=== PATIENT | male | born 1960 | race Caucasian/White ===

== ENCOUNTER 2016-07-13 10:56 | Inpatient (IN) | payer MEDICAID ==
[~2016-07-13] VITALS: Ht 177.8 cm; Wt 73.5 kg
--- NOTE | ~2016-07-13 | CON ---
PATIENT'S NAME: JENSEN DAWN [facility] AGE: 56 Y [address] ROOM: [address] [place], [place] [address] LOCATION: [facility] ADMIT DATE: 07/13/2016 Consultation DISCHARGE DATE: FAMILY PHYSICIAN: Luisito Hector DO ATTENDING PHYSICIAN: Porter Mota DATE OF CONSULTATION: 08/08/2016 REFERRING PHYSICIAN: IVAN CORTES MD Team members reporting include Dr. Mota; Mary Driver, social worker aide; Tanisha Mcghee RN; Amanda Hermosillo, PT; Rae Renee, OT; Bela Kwon, Speech Therapy; Anh Senior, therapeutic rec; Sister Meeta Coe, Pastoral Care; and Luz Rodriguez, pharmacist. 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 ID doctor will need to see the patient again. He has a small open area on his right hand and his left forearm. His bottom is pink. He is occasionally incontinent of bowel and bladder. Taking [place] for pain. The patient takes Ensure Enlive 3 times a day, eating 75% to 100%. He can complete sit to supine transfers and supine to sit independently. He can propel his wheelchair at mod I. He has met 5/6 long-term PT goals. The patient can dress his upper and lower body at mod I; grooming, independent; bathing, standby; toilet and shower transfers, standby; and feeding, independent. The patient's comprehension is at mod I; language and expression, independent; memory and problem solving, minimal assistance. The patient does have a memory book, often does not use it. He can complete car transfers at standby. Working on coping skills. The patient is open to pastoral care. He is getting nystatin cream twice a day to reddened areas in groins, etc. DISCHARGE PLAN: The patient is receiving 3 hours of PT, OT, and Speech Sunday through Sunday. The patient has daily rehab, nursing, and physiatry involvement as well as therapeutic recreational services 4 days per week. The patient has shown functional improvement and is progressing. Please see his plan of care for specific goals. Plan is for the patient to discharge as soon as we can find placement. MARY DRIVER FOR PORTER MOTA MD PATIENT'S NAME: JENSEN DAWN [facility] AGE: 56 Y [address] ROOM: [place] [address] LOCATION: [facility] ADMIT DATE: 07/13/2016 Consultation DISCHARGE DATE: FAMILY PHYSICIAN: Luisito Hector DO ATTENDING PHYSICIAN: Porter Mota TD/modl /[id number] d: t: 08/11/16 1743, CONSULTATION REPORT
--- NOTE | ~2016-07-13 | CON ---
PATIENT'S NAME: JENSEN DAWN [facility] AGE: 56 Y [address] ROOM: [address] [place], [place] [address] LOCATION: [facility] ADMIT DATE: 07/13/2016 Consultation DISCHARGE DATE: FAMILY PHYSICIAN: Luisito Hector DO ATTENDING PHYSICIAN: Porter Mota DATE OF CONSULTATION: 08/08/2016 REFERRING PHYSICIAN: IVAN CORTES MD Team members reporting include Dr. Mota; Mary Driver, delinquency prevention social worker; Tanisha Mcghee RN; Amanda Hermosillo, PT; Rae Renee, OT; Bela Kwon, Speech Therapy; Anh Senior, therapeutic rec; Sister Meeta Coe, Pastoral Care; and Luz Rodriguez, pharmacist. CURRENT STATUS: Jensen is a 56-year-old man, admitted to our inpatient rehab unit on July 13, 2016, following a right ulrle-tnp-zsnl amputation and amputation of left first and second toes. ID doctor will need to see the patient again. He has a small open area on his right hand and his left forearm. His bottom is pink. He is occasionally incontinent of bowel and bladder. Taking [place] for pain. The patient takes Ensure Enlive 3 times a day, eating 75% to 100%. He can complete sit to supine transfers and supine to sit independently. He can propel his wheelchair at mod I. He has met 5/6 long-term PT goals. The patient can dress his upper and lower body at mod I; grooming, independent; bathing, standby; toilet and shower transfers, standby; and feeding, independent. The patient's comprehension is at mod I; language and expression, independent; memory and problem solving, minimal assistance. The patient does have a memory book, often does not use it. He can complete car transfers at standby. Working on coping skills. The patient is open to pastoral care. He is getting nystatin cream twice a day to reddened areas in groins, etc. DISCHARGE PLAN: The patient is receiving 3 hours of PT, OT, and Speech Sunday through Sunday. The patient has daily rehab, nursing, and physiatry involvement as well as therapeutic recreational services 4 days per week. The patient has shown functional improvement and is progressing. Please see his plan of care for specific goals. Plan is for the patient to discharge as soon as we can find placement. MARY DRIVER FOR PORTER MOTA MD PATIENT'S NAME: JENSEN DAWN [facility] AGE: 56 Y [address] ROOM: [place] [address] LOCATION: [facility] ADMIT DATE: 07/13/2016 Consultation DISCHARGE DATE: FAMILY PHYSICIAN: Luisito Hector DO ATTENDING PHYSICIAN: Porter Mota TD/modl /[id number] d: 08/11/16 1735 t: 10/05/16 1639, CONSULTATION REPORT
--- NOTE | ~2016-07-13 | CON ---
PATIENT'S NAME: SAMIRA DAWN [facility] AGE: 56 Y [address] ROOM: [address] [place] [address] LOCATION: [facility] ADMIT DATE: 07/13/2016 Consultation DISCHARGE DATE: 09/15/2016 FAMILY PHYSICIAN: Luisito Hector DO ATTENDING PHYSICIAN: Porter Mota DATE OF CONSULTATION: 09/05/2016 REFERRING PHYSICIAN: Kraig Navas MD Team members reporting include Dr. Mota; Mary Driver, long term care social worker; Tanisha Mcghee, RN; Amanda Hermosillo, PT; Fallon Arrieta, PT; Kim Mooney, OT; Bela Kwon, Speech Therapy; Anh Senior, therapeutic rec; and Sister Meeta Coe, Pastoral Care. CURRENT STATUS: Samira is a 56-year-old man, admitted to our inpatient rehab unit following a right vsmsd-izq-pchv amputation and a left first and second toe amputation. The patient does frequently pick on scabs that he has on his arms and legs. He is currently continent of bowel and bladder. Takes [place] for pain. He can transfer pzc-tp-apfcfc and vhblxy-jf-xuc independently; nze-qb-czchz and stand- to-sit, standby; and whw-qc-ciiua and maddr-ru-iax, modified independent using a scoot technique. The patient can walk anywhere from 50 to 60 feet with a front-wheeled walker at contact guard assistance. The patient continues to have significant edema, which makes his tolerance to his prosthetic poor. The patient complains of burning pain throughout that stump. He has met 2/5 short- term PT goals. The patient can dress his upper body and lower body at standby; grooming, independent; bathing, standby; toilet and shower transfers, mod I; toileting, mod I; feeding, independent. He has met 12/13 long-term OT goals. The patient's comprehension is at mod I; language and expression, independent; memory and problem solving, standby. He can complete car transfers at standby assistance with cuing for safety. The patient has been very open to Pastoral Care as long as they do not reach to him. DISCHARGE PLAN: The patient is receiving 3 hours of PT, OT, and Speech Sunday through Sunday. The patient has daily rehab, nursing, and physiatry involvement as well as therapeutic recreational services 4 days per week. The patient has shown functional improvement and is progressing. Please see his plan of care for specific goals. Plan is for the patient to discharge as soon as placement can be found. Continue to work on getting the patient on Medicaid for disability. MARY DRIVER FOR PORTER MOTA MD PATIENT'S NAME: SAMIRA DAWN [facility] AGE: 56 Y [address] ROOM: [place] [address] LOCATION: [facility] ADMIT DATE: 07/13/2016 Consultation DISCHARGE DATE: 09/15/2016 FAMILY PHYSICIAN: Luisito Hector DO ATTENDING PHYSICIAN: Porter Mota TD/modl /[id number] d: 09/15/16 1806 t: 10/05/16 1652, CONSULTATION REPORT
--- NOTE | ~2016-07-13 | CON ---
PATIENT'S NAME: SAMIRA DAWN [facility] AGE: 56 Y [address] ROOM: [address] [place] [address] LOCATION: [facility] ADMIT DATE: 07/13/2016 Consultation DISCHARGE DATE: FAMILY PHYSICIAN: Luisito Hector DO ATTENDING PHYSICIAN: Porter Mota DATE OF CONSULTATION: 07/25/2016 REFERRING PHYSICIAN: IVAN CORTES MD Team members reporting include Dr. Mota; Mary Driver, social problems specialist; Skye Winter RN; Amanda Hermosillo, PT; Kim Mooney, OT; and father, Cruz. CURRENT STATUS: Samira is a 56-year-old man, admitted to our inpatient rehab unit on July 13, 2016, following a right lfwae-wyf-qprm amputation and left first and second toe amputation. The patient has been on and off refusing his stump assistant associate full professor. We continued to work with the patient on compliance. The patient is incontinent of bladder at times. The patient's bilateral groins are raw, they are using nystatin powder. He gets [place] and Neurontin for pain. The patient is on a regular diet. Intake is 100% for the most part. He takes Ensure b.i.d. Prealbumin is 20, up from 12. He does have an open area behind his right knee. The patient can transfer kwq-bz-qpzylz and nxwluz-nn-olx independently; qqk-xs-uinad, dxd-mi-gvqsm, mod I. He can propel his wheelchair, mod I. going up a ramp is mod I, down the ramp is standby. He has met 4/6 long-term PT goals. The patient can dress his upper and lower body at standby; grooming, independent; bathing, toilet, and shower transfer, standby; toileting, standby; and feeding, independent. His home management tasks are currently at standby. The patient can complete car transfers with standby assistance using a scoot technique, did tolerate a ride. The patient does have care of his brothers and some friends in the community. DISCHARGE PLAN: The patient is receiving 3 hours of PT, OT, and Speech Sunday through Sunday. The patient has daily rehab, nursing, and physiatry involvement as well as therapeutic recreational services 4 days per week. The patient has shown functional improvement and is progressing, please see his plan of care for specific goals. Plan is for the patient to discharge soon, unsure the patient's discharge destination at this time. The patient lives in [place] by himself. We plan to be doing a home safety evaluation to see if home is safe for the patient to return home to as there have been mixed reviews about the condition of the home as well as whether the patient will be able to take care of himself. PATIENT'S NAME: SAMIRA DAWN [facility] AGE: 56 Y [address] ROOM: [id number] [place] [address] LOCATION: [facility] ADMIT DATE: 07/13/2016 Consultation DISCHARGE DATE: FAMILY PHYSICIAN: Luisito Hector DO ATTENDING PHYSICIAN: Porter Mota FOR PORTER MOTA MD TD/efrainl /[id number] d: t: 07/27/161920, CONSULTATION REPORT
--- NOTE | ~2016-07-13 | CON ---
PATIENT'S NAME: SAMIRA DAWN [facility] AGE: 56 Y [address] ROOM: [address] [place] [address] LOCATION: [facility] ADMIT DATE: 07/13/2016 Consultation DISCHARGE DATE: FAMILY PHYSICIAN: Luisito Hector DO ATTENDING PHYSICIAN: Porter Mota DATE OF CONSULTATION: 08/01/2016 REFERRING PHYSICIAN: IVAN CORTES MD Team members reporting include Dr. Mota; Mary Driver, social worker masters; Tanisha Mcghee, RN; Fallon Grissom, PT; Amanda Hermosillo, PT; Kim Mooney, OT; Bela Kwon, Speech Therapy; Anh Senior, therapeutic rec; and father Marlo and Windy with Pharmacy. CURRENT STATUS: Samira is a 56-year-old man, admitted to our inpatient rehab unit on July 13, 2016, following a right daxgu-vju-kogb amputation. He recently had a fever of unknown origin. He also had left foot first and second toe amputated. Infectious Disease doctor will be seeing the patient. He is currently continent of bowel, occasionally incontinent of bladder, taking [place] for pain. He is on Ensure Enlive twice a day, intake is 50% to 100%. Prealbumin is 16. The patient can transfer sit to supine and supine to sit, independent; sit to stand and stand to sit, standby; and bed to chair, standby to mod I. He can propel his wheelchair 150 feet at mod I. He can go up and down a ramp at mod I. He can dress his upper body independently; lower body, standby; grooming, independent; bathing, toilet transfers, and shower transfers, standby; toileting, standby; and feeding, independent. He has met 03/23 long- term OT goals. The patient's comprehension is at mod I. Language and expression, independent. Memory, minimal assistance. Problem solving, moderate to minimal assistance. The patient is standby assistance with car transfers, needing cues, very cooperative, and open to Pastoral Care. Taking IV antibiotics, Zosyn, and vancomycin. DISCHARGE PLAN: The patient is receiving 3 hours of PT, OT, and Speech Sunday through Sunday. The patient has daily rehab, nursing, and physiatry involvement as well as therapeutic recreational services 4 days per week. The patient has shown functional improvement and is progressing. Please see his plan of care for specific goals. Plan is for the patient to discharge when we can find a place for the patient. MARY DRIVER FOR PORTER MOTA MD PATIENT'S NAME: SAMIRA DAWN [facility] AGE: 56 Y [address] ROOM: [address] [place] [address] LOCATION: [facility] ADMIT DATE: 07/13/2016 Consultation DISCHARGE DATE: FAMILY PHYSICIAN: Luisito Hector DO ATTENDING PHYSICIAN: Porter Mota TD/efrainl /[id number] d: 08/11/162 t: 10/05/16 1634, CONSULTATION REPORT
--- NOTE | ~2016-07-13 | CON ---
PATIENT'S NAME: SAMIRA DAWN [facility] AGE: 56 Y [address] ROOM: [address] [place], [place] [address] [address]: [facility] ADMIT DATE: 07/13/2016 Consultation DISCHARGE DATE: FAMILY PHYSICIAN: Luisito Hector DO ATTENDING PHYSICIAN: Porter Mota DATE OF CONSULTATION: 08/16/2016 REFERRING PHYSICIAN: IVAN CORTES MD Team members reporting include: Dr. Mota; Mary Driver, social studies teacher; Tanisha Mcghee, RN; Amanda Hermosillo, PT; Fallon Lebron, PT; Kim Mooney, OT; Bela Kwon, Speech Therapy; Anh Senior, therapeutic rec; and Sister Meeta Coe, Pastoral Care. CURRENT STATUS: Samira is a 56-year-old man, admitted to our inpatient rehabilitation unit following a right uhdja-abv-asgo amputation and a left first and second toe amputations. The patient did have an infection and was on antibiotics for a time. His bottom is pink. He does have some small scabs on his arms and legs. The patient does pick them up. He does have scabs on his stump and on the areas where the toes were removed on the left side as well. Takes [place] for pain. They are going to start fitting the patient for his stump. The patient is on a regular diet. He is taking Ensure Enlive t.i.d., doing well. The patient can complete all of his transfers at mod I; wheelchair mobility is at mod I. He has met 5/6 long-term PT goals. The patient can dress his upper and lower body at standby; grooming and bathing at standby; toilet and shower transfers at standby; and feeding at standby. He has met 10/13 long-term OT goals. The patient's comprehension is at mod I; language and expression are independent. Memory, minimal assistance; and problem solving, standby assistance. The patient can complete car transfers at standby assistance with verbal cues for setup. DISCHARGE PLAN: The patient is receiving 3 hours of PT, OT, and speech Sunday through Sunday. The patient has daily rehabilitation, nursing, and physiatry involvement as well as therapeutic recreational services 4 days per week. The patient has shown functional improvement and is progressing. Please see his plan of care for specific goals. Plan is for patient to discharge as soon as a plan can be arranged. The patient is currently working on getting Medicaid and disability and place. The patient's home is not set up for him as he has a hole in his ceiling and he does not have running water with broken pipes, and no way to pay for them at this time. PATIENT'S NAME: SAMIRA DAWN [facility] AGE: 56 Y [address] ROOM: [address] [place] [address] LOCATION: [facility] ADMIT DATE: 07/13/2016 Consultation DISCHARGE DATE: FAMILY PHYSICIAN: Luisito Hector DO ATTENDING PHYSICIAN: Porter Mota MARY DRIVER FOR PORTER MOTA MD TD/modl /[id number] d: 08/30/16 1643 t: 10/05/16 1646, CONSULTATION REPORT
--- NOTE | ~2016-07-13 | CON ---
PATIENT'S NAME: SAMIRA DAWN [facility] AGE: 56 Y [address] ROOM: [address] [place] [address] LOCATION: [facility] ADMIT DATE: 07/13/2016 Consultation DISCHARGE DATE: FAMILY PHYSICIAN: Luisito Hector DO ATTENDING PHYSICIAN: Porter Mota DATE OF CONSULTATION: 08/22/2016 REFERRING PHYSICIAN: IVAN CORTES MD Team members reporting include Dr. Mota; Mary Driver, nursing home social worker; Tanisha Mcghee, RN; Amanda Hermosillo, PT; Fallon Lebron, PT; Kim Mooney, OT; Bela Kwon, Speech Therapy; Anh Senior, therapeutic rec; and Sister Meeta Coe, Pastoral Care; and Luz Rodriguez, pharmacist. CURRENT STATUS: Loyda Styles is a 56-year-old man, admitted to our inpatient rehab unit on July 13, 2016, following a right uzktj-kba-enla amputation and left 1st and 2nd toe amputation. The patient has pink on his bottom, but no open areas. He is currently continent of bowel and bladder. The patient does have stump scabs and scabs on his arms and legs. Takes [place] for pain. The patient is on a regular diet. Taking Ensure Enlive t.i.d., currently at low nutritional risk. He can transfer utt-hq-vyock at standby; tex-ts-yghgq, mod I. The patient is using a prosthesis hand shaker. He should be wearing that 23/24 hours per day. He is able to walk about 40 feet with a front-wheeled walker at this time. He has met 4/6 long-term PT goals. The patient can dress his upper body, Mod I; lower body, standby; grooming, independent; bathing, standby; toilet and shower transfers, standby; toileting, standby; and feeding, mod I. The patient has met 10 of 13 long-term OT goals. The patient's comprehension is at mod I; language and expression, independent; memory, ahsyptj-kh-ptipcml assistance; and problem solving, uuuanqc-rf-pcoouvp assistance. The patient can complete car transfers at standby assistance. No pastoral care concerns or no pharmacy concerns at this time. DISCHARGE PLAN: The patient is receiving 3 hours of PT, OT, and speech Sunday through Sunday. The patient has daily rehab, nursing, and physiatry involvement as well as therapeutic recreational services 4 days per week. The patient has shown some functional improvement and is progressing. Please see his plan of care for specific goals. Plan is for patient to discharge as soon as placement can be arranged. We have faxed referrals to the [facility], called direct. [facility] were applying for assistance for patient. An application is being sent from [facility] in [place], [place]. PATIENT'S NAME: SAMIRA DAWN [facility] AGE: 56 Y [address] ROOM: [place] [address] LOCATION: [facility] ADMIT DATE: 07/13/2016 Consultation DISCHARGE DATE: FAMILY PHYSICIAN: Luisito Hector DO ATTENDING PHYSICIAN: Porter Mota MARY DRIVER FOR PORTER MOTA MD TD/modl /[id number] d: 08/30/16 1535 t: 10/05/16 1644, CONSULTATION REPORT
--- NOTE | ~2016-07-13 | CON ---
PATIENT'S NAME: SAMIRA DAWN [facility] AGE: 56 Y [address] ROOM: [address] [place] [address] LOCATION: [facility] ADMIT DATE: 07/13/2016 Consultation DISCHARGE DATE: FAMILY PHYSICIAN: Luisito Hector DO ATTENDING PHYSICIAN: Porter Mota DATE OF CONSULTATION: 08/01/2016 REFERRING PHYSICIAN: IVAN CORTES MD Team members reporting include Dr. Mota; Mary Driver, social media community manager; Tanisha Mcghee, RN; Fallon Grissom, PT; Amanda Hermosillo, PT; Kim Mooney, OT; Bela Kwon, Speech Therapy; Anh Senior, therapeutic rec; and father Marlo and Windy with Pharmacy. CURRENT STATUS: Samira is a 56-year-old man, admitted to our inpatient rehab unit on July 13, 2016, following a right ekxit-tkd-eagi amputation. He recently had a fever of unknown origin. He also had left foot first and second toe amputated. Infectious Disease doctor will be seeing the patient. He is currently continent of bowel, occasionally incontinent of bladder, taking [place] for pain. He is on Ensure Enlive twice a day, intake is 50% to 100%. Prealbumin is 16. The patient can transfer sit to supine and supine to sit, independent; sit to stand and stand to sit, standby; and bed to chair, standby to mod I. He can propel his wheelchair 150 feet at mod I. He can go up and down a ramp at mod I. He can dress his upper body independently; lower body, standby; grooming, independent; bathing, toilet transfers, and shower transfers, standby; toileting, standby; and feeding, independent. He has met 03/23 long- term OT goals. The patient's comprehension is at mod I. Language and expression, independent. Memory, minimal assistance. Problem solving, moderate to minimal assistance. The patient is standby assistance with car transfers, needing cues, very cooperative, and open to Pastoral Care. Taking IV antibiotics, Zosyn, and vancomycin. DISCHARGE PLAN: The patient is receiving 3 hours of PT, OT, and Speech Sunday through Sunday. The patient has daily rehab, nursing, and physiatry involvement as well as therapeutic recreational services 4 days per week. The patient has shown functional improvement and is progressing. Please see his plan of care for specific goals. Plan is for the patient to discharge when we can find a place for the patient. MARY DRIVER FOR PORTER MOTA MD PATIENT'S NAME: SAMIRA DAWN [facility] AGE: 56 Y [address] ROOM: [address] [place] [address] LOCATION: [facility] ADMIT DATE: 07/13/2016 Consultation DISCHARGE DATE: FAMILY PHYSICIAN: Luisito Hector DO ATTENDING PHYSICIAN: Porter Mota TD/modl /[id number] d: t: 08/11/16 1723, CONSULTATION REPORT
--- NOTE | ~2016-07-13 | CON ---
PATIENT'S NAME: SAMIRA DAWN [facility] AGE: 56 Y [address] ROOM: [id number] [place] [address] LOCATION: [facility] ADMIT DATE: 07/13/2016 Consultation DISCHARGE DATE: FAMILY PHYSICIAN: Luisito Hector DO ATTENDING PHYSICIAN: Porter Mota DATE OF CONSULTATION: 07/25/2016 REFERRING PHYSICIAN: IVAN CORTES MD Team members reporting include Dr. Mota; Mary Driver, social services counselor; Skye Winter RN; Amanda Hermosillo, PT; Kim Mooney, OT; and father, Cruz. CURRENT STATUS: Samira is a 56-year-old man, admitted to our inpatient rehab unit on July 13, 2016, following a right spkfs-qbi-wgef amputation and left first and second toe amputation. The patient has been on and off refusing his stump confidential secretary. We continued to work with the patient on compliance. The patient is incontinent of bladder at times. The patient's bilateral groins are raw, they are using nystatin powder. He gets [place] and Neurontin for pain. The patient is on a regular diet. Intake is 100% for the most part. He takes Ensure b.i.d. Prealbumin is 20, up from 12. He does have an open area behind his right knee. The patient can transfer nwh-ck-fufuwx and wevsiz-dv-dyz independently; jhh-pv-jtktm, fgx-fb-vzyuo, mod I. He can propel his wheelchair, mod I. going up a ramp is mod I, down the ramp is standby. He has met 4/6 long-term PT goals. The patient can dress his upper and lower body at standby; grooming, independent; bathing, toilet, and shower transfer, standby; toileting, standby; and feeding, independent. His home management tasks are currently at standby. The patient can complete car transfers with standby assistance using a scoot technique, did tolerate a ride. The patient does have care of his brothers and some friends in the community. DISCHARGE PLAN: The patient is receiving 3 hours of PT, OT, and Speech Sunday through Sunday. The patient has daily rehab, nursing, and physiatry involvement as well as therapeutic recreational services 4 days per week. The patient has shown functional improvement and is progressing, please see his plan of care for specific goals. Plan is for the patient to discharge soon, unsure the patient's discharge destination at this time. The patient lives in [place] by himself. We plan to be doing a home safety evaluation to see if home is safe for the patient to return home to as there have been mixed reviews about the condition of the home as well as whether the patient will be able to take care of himself. PATIENT'S NAME: SAMIRA DAWN [facility] AGE: 56 Y [address] ROOM: [address] [place] [id number] LOCATION: [facility] ADMIT DATE: 07/13/2016 Consultation DISCHARGE DATE: FAMILY PHYSICIAN: Luisito Hector DO ATTENDING PHYSICIAN: Porter Mota FOR PORTER MOTA MD TD/efrainl /[id number] d: 07/27/163 t: 10/05/16 1636, CONSULTATION REPORT
--- NOTE | ~2016-07-13 | CON ---
PATIENT'S NAME: SAMIRA DAWN [facility] AGE: 56 Y [address] ROOM: [address] [place], [place] [address] LOCATION: [facility] ADMIT DATE: 07/13/2016 Consultation DISCHARGE DATE: FAMILY PHYSICIAN: Luisito Hector DO ATTENDING PHYSICIAN: Porter Mota DATE OF CONSULTATION: 07/18/2016 REFERRING PHYSICIAN: IVAN CORTES MD Team members reporting include Dr. Mota; Mary Driver, mental health social worker; Tanisha Mcghee RN; Amanda Hermosillo, PT; Kim Mooney, OT; Bela Kwon, Speech Therapy; Anh Senior, therapeutic rec; and Sister Meeta Coe, Pastoral Care. CURRENT STATUS: Samira is a 56-year-old man, admitted to our inpatient rehab unit on July 13, 2016, following a right omuyl-xyi-jceg amputation and a left first and second toe amputation. The patient has a diagnosis of right lower extremity severe ischemia status post uhiaj-gqi-govo amputation, left lower extremity gangrenous toes status post amputation of 1 and 2, leukocytosis, chronic back pain, essential hypertension, alcohol abuse, and tobacco dependence. The patient has not been very compliant with his amputation shield. He is incontinent of bladder at times. The patient gets pain medication every 4 hours, complains of pain to his right leg. The patient can transfer sit-to- supine and qwhyjs-lv-kps at standby; nmf-wt-odbxj, standby; and ice-cq-wnesn, standby. The patient has not ambulated yet to keep integrity of the left leg and foot. Stairs have not been done yet for safety. They have been educating the patient on use of and the management of his wheelchair parts. The patient does not think that a wheelchair will fit inside his home. His goals have been set for modified independence. Upper body and lower body dressing, standby; grooming and bathing, standby; toilet transfers and shower transfers, contact guard assistance; and toileting, moderate assistance. His goals have been set for modified independence and he has met 3/13 long-term OT goals. Comprehension is at standby; language and expression, independent; memory, minimal assistance; and problem solving, jiaapupe-wm-kjsfxnw assistance. He has been started on a memory book. Car transfers have not been done yet. The patient has been opened to Pastoral Care and seems to be accepting, has visited with the patient about possible alternative living arrangement, working on getting the patient a pair source. DISCHARGE PLAN: The patient is receiving 3 hours of PT, OT, and Speech Sunday through Sunday. The patient has daily rehab, nursing, and physiatry involvement as well as therapeutic recreational services 4 days per week. The patient has shown functional improvement and is progressing, please see his plan of care for specific goals. Plan is for the patient to discharge in approximately 7 days. The patient's discharge status is unknown at this time as the patient was PATIENT'S NAME: SAMIRA DAWN [facility] AGE: 56 Y [address] ROOM: [id number] [place] [address] LOCATION: [facility] ADMIT DATE: 07/13/2016 Consultation DISCHARGE DATE: FAMILY PHYSICIAN: Luisito Hector DO ATTENDING PHYSICIAN: Porter Mota living alone in [place]. Due to the patient's cognitive concerns, the team feels that this is not safe. We will continue to work on discharge planning. MARY DRIVER FOR PORTER MOTA MD TD/modl /[id number] d: t: 07/26/16 0731, CONSULTATION REPORT
--- NOTE | ~2016-07-13 | DS ---
PATIENT'S NAME: SAMIRA DAWN [facility] AGE: 56 Y [address] ROOM: [address] [place] [address] LOCATION: [facility] ADMIT DATE: 07/13/2016 Discharge Summary DISCHARGE DATE: 09/15/2016 FAMILY PHYSICIAN: Luisito Hector DO ATTENDING PHYSICIAN: Dennise Mota ADDENDUM: This gentleman was supposedly going to surgery on 09/13/2016, which did not happen because he could not be taken in. There was emergencies going on OR. He is going to go to surgery today on 09/15/[address] Navas for bilateral femoral artery endarterectomy at around 10:00 am on 09/15/2016. PHYSICAL EXAMINATION: He is at the present time alert and oriented. Vitals are as follows: Blood pressure 118/52, temperature 97.5, pulse 73, respirations 16. LABORATORY DATA: His 09/13/2016 blood work was as follows: CBC: WBC 8.8, RBC 4.02, hemoglobin 10.9, hematocrit 54.9, platelets 314. CMS: Sodium 140, potassium 4.1, chloride 103, CO2 27, BUN 25, creatinine 0.8, and glucose 97. His PT was okay and INR 1.0. MEDICATION: Will stay the same and as per the surgeon after surgery and per his recommendation and orders. The patient will from there be under Dr. Navas and be followed as such with hospitalist too. I will follow as necessary. I did discuss with Mr. Cox again his surgery, he seems to be comfortable and understands the procedure that is going to be done for him as explained. DENNISE MOTA MD WMS/modl /[id number] d: 09/15/16 1019 t: 09/20/16 1255, DISCHARGE SUMMARY
--- NOTE | ~2016-07-13 | HP ---
PATIENT'S NAME: SAMIRA DAWN [facility] AGE: 56 Y [address] ROOM: [place] [address] LOCATION: [facility] ADMIT DATE: 07/13/2016 History & Physical DISCHARGE DATE: FAMILY PHYSICIAN: Luisito Hector DO ATTENDING PHYSICIAN: Dennise Mota DATE OF SERVICE: HISTORY OF PRESENT ILLNESS: This 56-year-old gentleman is admitted to rehab unit at [facility] on 07/13/2016 with, 1. Unstable gait. 2. Dependent on for activities of daily and self-care. 3. Status post right below-knee amputation. 4. End-stage ischemic leg. 5. Left foot first and second toe excision, leading to #1 and 2#. He is at the present time alert and oriented on admission. Vitals were as follows. Blood pressure 122/62, temperature 98.8, pulse 77, respirations 16. He is 5 feet 10 inches tall and weighs 67.3 kg. He is able to comprehend and express without difficulty. Past history significant for he did undergo on 07/07/2016, bellow-knee amputation on the right side. Details on record. Note, I saw this gentleman on initial evaluation on 07/12/2016 and recommended intensive therapy for about 10-14 days. However today on admission on 07/13/2016, upon re-evaluation, I recommend about 10 days of intensive rehab, aiming to discharge home with modified independence and follow up on an outpatient basis. PAST MEDICAL HISTORY: Past history of significance as follows. 1. Hypertension. 2. Chronic low back pain. 3. Chronic tobacco and alcohol use. 4. Cyst excision of tailbone. 5. Right ankle surgery, exact surgery unknown. PHYSICAL EXAMINATION: GENERAL: He is at the present time doing well, able to follow instructions. Head is normocephalic. Cranial nerves 2 through 12 are within normal. NECK: Supple. Trachea is central. CHEST: With few scattered wheezes. HEART: Regular sinus rhythm. ABDOMEN: Soft, no organomegaly or tenderness. Bowel sounds active. PATIENT'S NAME: SAMIRA DAWN [facility] AGE: 56 Y [address] ROOM: [place] [address] LOCATION: [facility] ADMIT DATE: 07/13/2016 History & Physical DISCHARGE DATE: FAMILY PHYSICIAN: Luisito Hector DO ATTENDING PHYSICIAN: Dennise Mota EXTREMITIES: He has good ability to move bilateral upper extremities with muscle strength about 4 to 4+/5. Bilateral lower extremities however at best muscle strength is about 4-/5 and is with some phantom pain and some stump pain on the right side also; however, he is able to transfer with contact guard information services assistant, minimum help, and is well motivated. NEUROLOGICALLY: Otherwise intact. Has good bowel and bladder control. MEDICATIONS: He is on the following medications. 1. Lovenox 40 mg subcu daily. 2. Neurontin 300 mg p.o. 3 times daily. 3. NicoDerm 14 mg patch. 4. Tylenol 650 q.6 hours, do not exceed acetaminophen 4 g q.24 hours. 5. [place] 5/325 one to two tablets q.6 hours as needed p.r.n., again do not exceed acetaminophen 4 g q.24 hours. 6. Colace 100 mg p.o. twice daily as needed. ASSESSMENT AND PLAN: We will put on intensive PT/OT 3 hours per day, 15 hours per week, and Speech also for the coming 10 days to 14 days, aiming to discharge with modified independence. We will send for urinalysis with reflex microscopy. CBC with automated differential. CMS. Prealbumin. We will keep on Dr. Navas and hospitalist doctor to follow as necessary. All the above was explained to him in detail. He verbalized understanding and agreement with plan of care. DENNISE MOTA MD WMS/modl /[id number] D: [id number] T: 653 HISTORY & PHYSICAL
--- NOTE | ~2016-07-13 | DS ---
PATIENT'S NAME: SAMIRA DAWN [facility] AGE: 56 Y [address] ROOM: [address] [place] [address] LOCATION: [facility] ADMIT DATE: 07/13/2016 Discharge Summary DISCHARGE DATE: 09/13/2016 FAMILY PHYSICIAN: Luisito Hector DO ATTENDING PHYSICIAN: Dennise Mota HISTORY OF PRESENT ILLNESS: This 56-year-old gentleman was admitted to rehab unit at [facility] on 07/13/2016 and is discharged on 09/13/2016 to go to OR to have bilateral femoral artery endarterectomy per Dr. Navas on 09/13/2016 and thereafter follow up with Dr. Navas as he sees fit. He is at the present time doing well, alert, oriented. PHYSICAL EXAMINATION: VITAL SIGNS: Today, vitals were as follows: Blood pressure 138/66, temperature 97.4, pulse 79, respiration rate 20. EXTREMITIES: He can at the present time ambulate with a prosthesis on the right below-knee stump, 60 feet x2 with rest in between. MEDICATIONS: He will be on the following medications: 1. Cefazolin 2 g in 50 mL IV bag. 2. Zyloprim 100 mg p.o. daily. 3. Lipitor 40 mg p.o. daily. 4. Lovenox has been not renewed and it is up to his treating surgeon to renew it or not. 5. Neurontin 300 mg p.o. b.i.d. 6. Neurontin 600 mg at bedtime. 7. Melatonin 3 mg at bedtime. 8. Florastor 250 mg twice daily. 9. Tylenol 650 q.6 hours, do not exceed acetaminophen 4 g q.24 hours. 10. [place] 5/325 one to two tablets q.4 hours, 36 of them, renewal per his treating surgeon. 11. Benadryl 12.5 mg at bedtime. 12. Hydrocort 1% cream as needed locally. 13. MOM 30 mL at bedtime p.r.n. FINAL DIAGNOSES: 1. Right below-knee amputation with unstable gait. 2. Status post left first and second toe amputation per history. 3. Peripheral vascular disease and scheduled for bilateral femoral endarterectomy on 09/13/2014. 4. Hypertension. 5. Chronic low back pain. 6. Right hand thenar eminence cyst with the elective surgery in the future. 7. Cyst excision of tailbone, per history. 8. Right ankle surgery, per history. PATIENT'S NAME: SAMIRA DAWN [facility] AGE: 56 Y [address] ROOM: [address] [place] [address] LOCATION: [facility] ADMIT DATE: 07/13/2016 Discharge Summary DISCHARGE DATE: 09/13/2016 FAMILY PHYSICIAN: Luisito Hector DO ATTENDING PHYSICIAN: Dennise Mota 9. Alcohol and tobacco use. 10. Dyslipidemia. At the present time, he is not on Lovenox and renewal per the treating surgeon. All the above was explained to him in detail. He verbalized understanding and agreement with plan of care. DENNISE MOTA MD WMS/modl /[id number] d: 09/13/16 0749 t: 09/13/16 0826, DISCHARGE SUMMARY
--- NOTE | ~2016-07-13 | ENPV ---
Vascular Lower Extremities DVT Study Procedure Demographics Patient Name SAMIRA DAWN Date of Study 08/23/2016 Patient Number [id number] Gender Male Date of 1960 Age 56 Visit Number [id number] Height Weight Number Room Number G3297 BSA BMI Referring Krunal Dale MD Physician Porter Rojas Physician Physician Tyrone Finley Breeder Hen Service Technician Physician Lee Ann ELLISON Protocol Manager Fallon Isabel, RT,RVT,[facility] Conclusions Summary No evidence of deep vein thrombosis or superficial thrombophlebitis in the left lower extremity. No evidence of deep vein thrombosis or superficial thrombophlebitis in the right contralateral groin. Procedure Type of Study: Veins:Lower Extremities DVT Study, Lower Extremity Left. Indications for Study:Swelling of Limb. Appropriate Use Criteria:9 Patient Status:Routine. Study Location:Inpatient Portable. Technical Quality:Good visualization. Velocities are measured in cm/s ; Diameters are measured in cm Right Lower Extremities DVT Study Measurements Right 2D and Doppler Measurements + + + + +------+------+ + !Location !Visualized!Compressibility!Thrombosis!Signal!Reflux!Reflux ! ! ! ! ! ! ! !(sec) ! + + + + +------+------+ + !GSV Thigh !Yes !Yes !None !Phasic! ! ! + + + + +------+------+ + !Common !Yes !Yes !None !Phasic! ! ! !Femoral ! ! ! ! ! ! ! + + + + +------+------+ + Left Lower Extremities DVT Study Measurements Left 2D and Doppler Measurements + + + + +------+------+ + !Location !Visualized!Compressibility!Thrombosis!Signal!Reflux!Reflux ! ! ! ! ! ! ! !(sec) ! + + + + +------+------+ + !GSV Thigh !Yes !Yes !None !Phasic! ! ! + + + + +------+------+ + !Common !Yes !Yes !None !Phasic! ! ! !Femoral ! ! ! ! ! ! ! + + + + +------+------+ + !Prox !Yes !Yes !None !Phasic! ! ! !Femoral ! ! ! ! ! ! ! + + + + +------+------+ + !Mid Femoral!Yes !Yes !None ! ! ! ! + + + + +------+------+ + !Dist !Yes !Yes !None !Phasic! ! ! !Femoral ! ! ! ! ! ! ! + + + + +------+------+ + !Popliteal !Yes !Yes !None !Phasic! ! ! + + + + +------+------+ + !Gastroc !Yes !Yes !None ! ! ! ! + + + + +------+------+ + !PTV !Yes !Yes !None ! ! ! ! + + + + +------+------+ + !Peroneal !Yes !Yes !None ! ! ! ! + + + + +------+------+ + Signature dtt: IVAN CORTES: 08/23/161631 Physician Self Edit
--- NOTE | ~2016-07-13 | CON ---
PATIENT'S NAME: SAMIRA DAWN [facility] AGE: 56 Y [address] ROOM: [address] [place] [address] LOCATION: [facility] ADMIT DATE: 07/13/2016 Consultation DISCHARGE DATE: FAMILY PHYSICIAN: Luisito Hector DO ATTENDING PHYSICIAN: Porter Mota DATE OF CONSULTATION: 08/29/2016 REFERRING PHYSICIAN: IVAN CORTES MD Team members reporting include Dr. Mota; Mary Driver, social scientist; Tanisha Mcghee, RN; Amanda Hermosillo, PT; Kim Mooney, OT; Fallon Lynch, PT; Bela Kwon, Speech Therapy; Anh Senior, therapeutic rec; and Sister Meeta Coe, Pastoral Care. CURRENT STATUS: Samira is a 56-year-old man admitted to our inpatient rehab unit on July 13, 2016, following a right tgzwz-wkj-isty amputation and left first and second toe amputations. The patient is currently continent of bowel and bladder and takes [place] for pain. The patient is on a regular diet. Prealbumin is 26. Taking Ensure [place] t.i.d. The patient can transfer bed to chair and chair to bed, mod I. he can walk 50 feet at minimal assistance. His tolerance for his prosthesis at this time is poor. He can negotiate one kerb, minimal assistance going up and down. His left leg is very swollen, tight, and shiny. Complains of pain in his stump area. States his stump feels like it is burning. Dr. Mota did change his Neurontin to 300 mg t.i.d. The patient can dress his upper and lower body at mod I; grooming, mod I; bathing, standby; toilet and shower transfers, standby; toileting, standby; and feeding, independent. The patient is standby assistance for home management from a wheelchair level with verbal cues needed. He has met 10/13 long-term OT goals. Comprehension is at mod I to independent; language and expression, independent; memory, minimal to standby assistance; and problem solving, standby assistance. The patient can complete car transfers at standby assistance with occasional cues, community reentry is standby assistance. His overall coping is improving. The patient has been open to some pastoral cares. DISCHARGE PLAN: The patient is receiving 3 hours of PT, OT, and speech Sunday through Sunday. The patient has daily rehab, nursing, and physiatry involvement as well as therapeutic recreational services 4 days per week. The patient has shown functional improvement and is progressing. Please see his plan of care for specific goals. Plan is for the patient to discharge as soon as placement can be arranged. We have tried multiple areas and now working on [facility] housing in [place], [place]. PATIENT'S NAME: SAMIRA DAWN [facility] AGE: 56 Y [address] ROOM: [place] [address] LOCATION: [facility] ADMIT DATE: 07/13/2016 Consultation DISCHARGE DATE: FAMILY PHYSICIAN: Luisito Hector DO ATTENDING PHYSICIAN: Porter Mota MARY DRIVER FOR PORTER MOTA MD TD/naima /[id number] d: 08/30/16 1326 t: 10/05/16 1642, CONSULTATION REPORT
--- NOTE | ~2016-07-13 | CON ---
PATIENT'S NAME: SAMIRA DAWN [facility] AGE: 56 Y [address] ROOM: [address] [place], [place] [address] LOCATION: [facility] ADMIT DATE: 07/13/2016 Consultation DISCHARGE DATE: FAMILY PHYSICIAN: Luisito Hector DO ATTENDING PHYSICIAN: Porter Mota DATE OF CONSULTATION: 07/18/2016 REFERRING PHYSICIAN: IVAN CORTES MD Team members reporting include Dr. Mota; Mary Driver, social work case manager; Tanisha Mcghee RN; Amanda Hermosillo, PT; Kim Mooney, OT; Bela Kwon, Speech Therapy; Anh Senior, therapeutic rec; and Sister Meeta Coe, Pastoral Care. CURRENT STATUS: Samira is a 56-year-old man, admitted to our inpatient rehab unit on July 13, 2016, following a right bgfse-hkf-wujr amputation and a left first and second toe amputation. The patient has a diagnosis of right lower extremity severe ischemia status post guhcg-igk-dlub amputation, left lower extremity gangrenous toes status post amputation of 1 and 2, leukocytosis, chronic back pain, essential hypertension, alcohol abuse, and tobacco dependence. The patient has not been very compliant with his amputation shield. He is incontinent of bladder at times. The patient gets pain medication every 4 hours, complains of pain to his right leg. The patient can transfer sit-to- supine and lbpwla-hn-cdw at standby; fer-vd-qmdat, standby; and dpu-nz-fgleg, standby. The patient has not ambulated yet to keep integrity of the left leg and foot. Stairs have not been done yet for safety. They have been educating the patient on use of and the management of his wheelchair parts. The patient does not think that a wheelchair will fit inside his home. His goals have been set for modified independence. Upper body and lower body dressing, standby; grooming and bathing, standby; toilet transfers and shower transfers, contact guard assistance; and toileting, moderate assistance. His goals have been set for modified independence and he has met 3/13 long-term OT goals. Comprehension is at standby; language and expression, independent; memory, minimal assistance; and problem solving, snyrpwbp-nz-uiaszlt assistance. He has been started on a memory book. Car transfers have not been done yet. The patient has been opened to Pastoral Care and seems to be accepting, has visited with the patient about possible alternative living arrangement, working on getting the patient a pair source. DISCHARGE PLAN: The patient is receiving 3 hours of PT, OT, and Speech Sunday through Sunday. The patient has daily rehab, nursing, and physiatry involvement as well as therapeutic recreational services 4 days per week. The patient has shown functional improvement and is progressing, please see his plan of care for specific goals. Plan is for the patient to discharge in approximately 7 days. The patient's discharge status is unknown at this time as the patient was PATIENT'S NAME: SAMIRA DAWN [facility] AGE: 56 Y [address] ROOM: [id number] [place] [id number] LOCATION: [facility] ADMIT DATE: 07/13/2016 Consultation DISCHARGE DATE: FAMILY PHYSICIAN: Luisito Hector DO ATTENDING PHYSICIAN: Porter Mota living alone in [place]. Due to the patient's cognitive concerns, the team feels that this is not safe. We will continue to work on discharge planning. MARY DRIVER FOR PORTER MOTA MD TD/modl /[id number] d: 07/25/167 t: 10/05/16 1631, CONSULTATION REPORT
--- NOTE | ~2016-07-13 | ENPV ---
Vascular Lower Extremities Arterial Duplex Procedure Demographics Patient Name SAMIRA DAWN Date of Study 09/08/2016 Patient Number [id number] Gender Male Date of 1960 Age 56 Visit Number [id number] Height Accession Number [id number] Weight Room Number G3297 BSA BMI Referring Krunal Dale MD Physician Porter Rojas Physician Keyur Lovell APRN Physician Ordering Physician Keyur Ricci Central Processing Tech Assembler Tester Sindy Ruiz RVT Conclusions Summary Duplex imaging of the right leg shows significant amount of calcified plaque in the DISTRICT MANAGER MAJOR ACCOUNTS SALES with thump flow. Evidence of biphasic flow in the right proximal PFA. No evidence of flow in the right proximal and mid SFA. Duplex imaging of the left leg reveals a hemodynamically significant stenosis of the proximal PFA and proximal SFA. Procedure Type of Study: Extremities Arteries:Lower Extremities Arterial Duplex, Arterial Duplex Lower Extremity Bilateral. Indications for Study:Non Healing Wounds. Appropriate Use Criteria:9 Patient Status:Routine. Study Location:Inpatient Portable. Technical Quality:Adequate visualization. Velocities are measured in cm/s ; Diameters are measured in cm LE Duplex Measurements + ++-----+ +----+---+ + ! !!Right! !Left! ! ! + ++-----+ +----+---+ + !Location !!PSV !Wave Desc.! !PSV!Wave Desc.! + ++-----+ +----+---+ + !Dist EIA !!52 !Biphasic ! ! ! ! + ++-----+ +----+---+ + !Femoral !!34 !Monophasic! !78 !Biphasic ! + ++-----+ +----+---+ + !PFA !!96 !Biphasic ! !318!Stenotic ! + ++-----+ +----+---+ + !Prox SFA !!0 !Absent ! !264!Stenotic ! + ++-----+ +----+---+ + !Mid SFA !! !Absent ! !95 !Biphasic ! + ++-----+ +----+---+ + !Dist SFA !!38 !Monophasic! !80 !Biphasic ! + ++-----+ +----+---+ + !Prox Popliteal !!34 !Monophasic! !78 !Monophasic! + ++-----+ +----+---+ + !Dist Popliteal !! ! ! !44 !Monophasic! + ++-----+ +----+---+ + !Mid SCIENTIFIC DATABASE CURATOR !! ! ! !17 !Monophasic! + ++-----+ +----+---+ + !Mid AMY !! ! ! !16 !Monophasic! + ++-----+ +----+---+ + !DP !! ! ! !18 !Monophasic! + ++-----+ +----+---+ + Signature dtt: IVAN CORTES dtd: 09/08/16 1530 Physician Self Edit
--- NOTE | ~2016-07-13 | CON ---
PATIENT'S NAME: SAMIRA DAWN [facility] AGE: 56 Y [address] ROOM: [id number] [place], [place] [address] LOCATION: GIRP ADMIT DATE: 07/13/2016 Consultation DISCHARGE DATE: 09/15/2016 FAMILY PHYSICIAN: Luisito Hector DO ATTENDING PHYSICIAN: Porter Mota DATE OF CONSULTATION: 09/12/2016 REFERRING PHYSICIAN: Kraig Navas MD Team members reporting include Dr. Mota; Mray Driver, social media marketing manager; Dania Valdes RN; Amanda Hermosillo, PT; Fallon Arrieta, PT; Kim Mooney, OT; Bela Kwon, Speech Therapy; Anh Senior, therapeutic rec; and Sister Meeta Coe, Pastoral Care. 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 The patient is on a regular diet. Intake is 100%. Taking Ensure Enlive and yogurt daily at breakfast. Prealbumin is currently at 27. He is currently listed at low nutritional risk. The patient can complete all of his transfers at mod I from a wheelchair level. He can ambulate 60 feet at standby assistance. He has met 3/5 long-term PT goals. The patient can dress his upper and lower body, mod I; grooming, independent; bathing, standby; toilet and shower transfers, mod I; and toileting, mod I. he is independent for feeding. He has met one long-term OT goal. Comprehension, mod I; language and expression, independent; memory, standby assistance to mod I; and problem solving, standby assistance to mod I. The patient can complete car transfers at standby. He has been very open to pastoral care. DISCHARGE PLAN: The patient is receiving 3 hours of PT, OT, and speech Sunday through Sunday. The patient has daily rehab, nursing, and physiatry involvement as well as therapeutic recreational services 4 days per week. The patient has shown functional improvement and is progressing. Please see his plan of care for specific goals. Plan is for the patient to discharge to acute care on September 15, 2016. The patient's wounds are not healing due to his peripheral arterial disease. The patient will be going back to surgery on that date for bilateral common femoral endarterectomies. We will continue to follow and assist as needed. MARY DRIVER FOR PORTER MOTA MD PATIENT'S NAME: SAMIRA DAWN [facility] AGE: 56 Y [address] ROOM: [id number] [place] [id number] LOCATION: [facility] ADMIT DATE: 07/13/2016 Consultation DISCHARGE DATE: 09/15/2016 FAMILY PHYSICIAN: Luisito Hector DO ATTENDING PHYSICIAN: Porter Mota TD/efrainl /[id number] d: 09/15/16 1800 t: 10/05/16 1649, CONSULTATION REPORT
[~2016-07-13 10:56] MED LIST: TYLENOL325 MG PO
--- NOTE | 2016-07-13 11:10 | NUR ---
Pt admitted to [facility] from [facility] following rt BKA. Pt reported he "stepped on a nail and got infected. Pt alert and oriented but also forgetful. Alarms in use at all times. Pt c/o pain to rt stump, taking norco. IV SL to rt wrist. Dressing to rt stump and left foot remain C/D/I. Nicotine patch to left shoulder. Pt pleasant and cooperative with admission process.
--- NOTE | 2016-07-13 15:25 | NUR ---
Significant Event: Pt transferred from w/c to toilet 1 assist, stand pivot with therapy assist, use of walker. WBAt on left foot. Stump guard remains off as pt has 90 degree contracture at knee as reported per P.T.. Guard causes pt too much pain. [place] 2 tabs at 1425. Neurontin at 1425. NIcotine patch to left shoulder. Lung sounds sl. coarse, pt continues to request a cigarette. Dressing to rt stump and left foot remain C/D/I. Pt alert and oriented x 3, but has intermittent confusion or forgetfulness. Alarms in use at all times. Pt cooperative with cares. Urine culture was done on [facility] prior to admission over here, therefore sample not obtained upon admission to this floor. Follow up: activity, safety, alarms in use, pain management
--- NOTE | 2016-07-14 03:59 | NUR ---
A/O x 3. Pleasant. Cooperative. Brother visiting until 1999. OOB in W/C until 2029. Medicated at HS for c/o pain to R-BKA. Damir and drsg intact to to RLE and LLE. Low bed ordered and in use at this time. Floor mats placed on both sides of bed. Incontinent of stool x 1. Incontinent of Urine x 1. Freq urination during the night. Clothes washed/dried/folded and placed in patient room. Rested poor due to freq urination and incontinent stool.
[2016-07-14 05:45] LABS: BASOPHIL # 0.1 K/uL (0.0-0.2); BASOPHIL % 0.6 %; EOSINOPHIL # 0.5 K/uL (0.0-0.5); EOSINOPHIL % 2.6 %; HEMATOCRIT 33.7 % (37.0-53.0); HEMOGLOBIN 10.7 g/dL (12.0-17.0); IMMATURE GRANULOCYTE # 0.1 K/uL (0.0-0.3); IMMATURE GRANULOCYTE % 0.4 %; LYMPHOCYTE # 2.6 K/uL (0.8-4.0); LYMPHOCYTE % 13.8 %; MCH 29.2 pg (27.0-34.0); MCHC 31.8 gm/dL (32.0-36.5); MCV 91.8 fl (83.0-98.0); MONOCYTE # 2.3 K/uL (0.0-1.0); MONOCYTE % 12.1 %; MPV 9.1 fl (9.4-12.4); NEUTROPHIL # (ANC) 13.5 K/uL (1.4-9.0); NEUTROPHIL % 70.5 %; NRBC % 0 /100WBC (0-0.00); PLATELET COUNT 569 K/uL (150-450); RBC 3.67 M/uL (4.00-6.00); WBC 19.1 K/uL (4.0-11.0)
[2016-07-14 06:07] LABS: ALBUMIN 2.3 gm/dL (3.5-5.0); ALK PHOS 92 IU/L (33-138); ALT 15 IU/L (12-78); BLOOD UREA NITROGEN 18 mg/dL (6-24); CALCIUM 8.9 mg/dL (8.5-10.5); CHLORIDE 101 mMol/L (96-110); CO2 30 mMol/L (22-32); CREATININE 0.8 mg/dL (0.6-1.3); ESTIMATED GFR (MDRD EQUATION) > 60; SODIUM 137 mMol/L (135-145); TOTAL BILIRUBIN 0.3 mg/dL (0.0-1.5); TOTAL PROTEIN 7.4 g/dL (6.0-8.4)
[2016-07-14 06:10] LABS: AST 22 IU/L (10-40)
--- NOTE | 2016-07-14 10:04 | NUR ---
D: Therapeutic Recreation Initial Assessment on the 07/14/16. I: Patient seen for 2 units to begin initial evaluation. Pt has dx of MARCELINA on RLE. R: Patient's current living situation and status: house in town Home entrance steps: 1 Living with: alone Spouses name: single # of children: 0 Driving: yes, friends can provide transportation Ambulating: I Equipment: N/A Hand Dominance: Right Electrical Prospecting Supervisor strength: not tested Eye sight: glasses Reading ability: reports no problem Hearing: no problem Speech: clear Cognition: impaired Comprehension: fair Following directions: at times Initiating: yes Eye contact: good Affect: bright COMMUNITY INVOLVEMENT: occ. out to eat, grocery shopping, visit friends, camping in the past, goes to Library LEISURE INTERESTS: watch TV, read (newspaper, magazine books), solitaire Patient is referred by medical staff for treatment and evaluation in the following areas: Community Skills, Functional Leisure Skills, Participation, Leisure Education/Behaviors, Family Education, Cognitive, Emotional. Information obtained: Interview, Chart Review, Observation, other. BARRIERS TO LEISURE: Social, Financial, Physical, Lifestyle (smoking a pack of cigarettes daily, alcohol use daily, reports problems with depression, Transportation, Leisure Skills. Patient determined to be: APPROPRIATE FOR THERAPEUTIC RECREATION ASSESSMENT. TREATMENT WILL INCLUDE: Community living skills training Functional leisure development Physical skills development Cognitive skills development Social skills development Leisure education Emotional/behavioral adaptation Family education Community resources/packet to begin when condition has changed enough to benefit from treatment. TARGET EQUIPMENT/INFORMATION: Parking Permit will need Community Resources Energy conservation in community setting Van/Service/Taxi Scrip Adapted Leisure Equipment Stress management/Relaxation techniques Functional car transfers Leisure Education Behaviors: Attitude, Awareness, Participation. Patient functional skills level and potential: Guarded, pt demonstrates fair mobility with concerns for pain/stress management and safety due to past lifestyle habits. Patient oriented ot TR services on Rehab unit. Pt/family provided input into goals setting and plan of care. Pt's goal is to be independent with mobility and be pain free. P: Target date set with personal goals established. Will continue with POC focusing on pt/family training and education. For additional information please see Nursing Data Base, PT, OT, CM, ST, initial assessments to [facility] and Interdisciplinary Assessments.
--- NOTE | 2016-07-14 16:08 | NUR ---
Significant Event: Alert and oriented. Forgetful at times. Up with 1A stand pivot. Ald[place] given at 1105 for pain to right stump. Scheduled neurontin. Nicotine patch to right upper arm. Dressing to right stump and left foot changed. C/D/I. Continent of bowel and bladder. Alarms at all times. Used call light appropriately this shift. Cooperative with cares. Follow up:
--- NOTE | 2016-07-15 05:07 | NUR ---
Significant Event:Patient is alert and oriented x 3. VSS. Was given a stump protector yesterday. Has taken it off during the night due to discomfort. Patient leg has a contracture that make the stump protector very uncomfortable. Also has some toes removed from left foot with dressing in place. Has been having issues with pain. Takes 2 Goodman q 6 hrs last at 0007. Is always asking for it early. Voids per urinal during the night. Is a 1 assist pivot transfer. Follow up:
--- NOTE | 2016-07-15 14:45 | NUR ---
Significant Event:PATIENT ALERT AND ORIENTED THIS SHIFT. VSS. TRANSFERS WITH 1 ASSIST, GAIT BELT PIVOT TRANSFER. IS NON WEIGHT BEARING ON RIGHT LOWER EXTREMITY. DRESSING TO RIGHT STUMP AND LEFT TOE SITE CHANGED THIS AM. TOLERATED WELL. HAD A MODERATE AMOUNT OF DRAINAGE NOTED. COMPLAINTS OF PAIN IN BOTH SITES. TAKES NORCO 2 TABS PO. LAST DOSE GIVEN AT 1419. REFUSES TO WEAR THE STUMP GUARD HE HAS A CONTRACTED RIGHT KNEE AND IT JUST PUTS HIM IN TEARS TO HAVE IT ON. WILL CONTACT [facility] FOR OPTIONS. NO OTHER COMPLAINTS. Follow up:
--- NOTE | 2016-07-16 03:18 | NUR ---
Significant Event: Patient is alert and oriented x 3. VS OK but did have a slight temp of 99.0 last night when recheck was gone. Up with one assist pivot transfer. Patient has stayed in bed all night. Patient refuses to wear his ampushield for his right BKA due to his contracture c/o of unbearable pain. Is asked to keep his right leg on a pillow to float the end of his stump but is not following advice very well. Is also instructed to use his incentive spirometer due to his cough and temp. Lungs are coarse at times but clear with his cough. Patient states he can not feel if his bowels move and needs frequent checks to make sure he is clean and dry. He does not report if he needs changed. Patient buttocks are very escoriated. Last [place] 2 tabs was given at midnight. Voids per urinal at bedside. Follow up: Dressing changes to stump and left foot daily.
--- NOTE | 2016-07-16 14:30 | NUR ---
Significant Event:PATIENT ALERT AND ORIENTED THIS SHIFT. VSS. TRANSFERS WITH 1 ASSIST, GAIT BELT PIVOT TRANSFER WITH WALKER. RESTS IN BED MOST OF THE DAY. SITS ON EDGE OF BED FREQUENTLY AND THEN LIES DOWN. BOTTOM RED. ALOE VESTA APPLIED WHEN ABLE. [facility] CALLED REGARDING PAIN WITH STUMP GUARD. WE CAN PUT ON LOOSELY WITH STRAPS LOOSE AND THEN HIS LEGS CONTRACTURE LESSENS WE CAN TIGHTEN THE STRAPS UP. IS WILLING TO TRY IT. TAKES NORCO FOR PAIN. LAST DOSE WAS 2 TABS PO AT 1344. ICE TO STUMP FOR AWHILE BEFORE IT WAS TIME FOR PAIN MEDS HE SAID THE PAIN WAS WORSE AND IT WAS TOO EARLY FOR MEDS. NO OTHER COMPLAINTS. Follow up:
--- NOTE | 2016-07-17 04:09 | NUR ---
Significant Event: Patient is alert and oriented can be forgetful. Up one assist pivot transfer. Vss. Dressing changes to his stump and left foot daily. Patient has a contracture to his right leg and is refusing his stump protector. Is c/o of pain 10/10 and asking for [place] every 2-3 hrs. 2 [place] last given at 0145. After talking with [facility] about patient refusal to use the stump protector, day shift had been working on placing the stump protector on very loosely but patient continues to remove it. I have been placing a pillow behind his knee to float his stump off the bed, patient removes it. Has been noncompliant with nursing instructions. Sits on the side of the bed and dangles his stump most of the night. Uses urinal at night. Has incontinent stools patient states he can not tell when he has to go and does not call when wet and dirty need frequent checks. Also picks and itches his skin causing opened bleeding sores. Follow up: Pain control.
--- NOTE | 2016-07-17 14:48 | NUR ---
A-SCREENED D/T LOS; NEW ADMIT TO [facility] S/P R)MARCELINA HT: 5'10" WT: 64.7 KG. BMI 20.6. 92% OF IBW LABS (2/3)-ALB 2.3, PREALB 12 MEDS: NEURONTIN, NORCO, COLACE, PRN BOWEL MEDS DIET RX: REGULAR W/ENSURE ENLIVE BID AT B/D. PO INTAKE HAS BEEN GOOD W/ 75-100% INTAKE. EST NUTR. NEEDS: [id number] KCALS (30-35 KCALS/KG) 78-98 GM PROTEIN (1.2-1.5 GM/KG) 1 ML FLUID/KCAL D-AT NUTRITION RISK W/INCREASED NUTRIENT NEEDS R/T HEALING AEB R)MARCELINA I-CONTINUE W/ENSURE ENLIVE BID M/E-GOAL: PO INTAKE >/=75% FOR DURATION OF ADMIT 1)F/U PO INTAKE, SUPPLEMENT, WT, LABS, AND POC IN 5-7 DAYS 2)ASSIST NEEDED
[2016-07-17 14:51] LABS: BASOPHIL # 0.2 K/uL (0.0-0.2); BASOPHIL % 1.2 %; EOSINOPHIL # 0.3 K/uL (0.0-0.5); EOSINOPHIL % 2.3 %; HEMOGLOBIN 11.2 g/dL (12.0-17.0); IMMATURE GRANULOCYTE # 0.1 K/uL (0.0-0.3); IMMATURE GRANULOCYTE % 0.5 %; LYMPHOCYTE # 2.6 K/uL (0.8-4.0); LYMPHOCYTE % 17.5 %; MCH 29.3 pg (27.0-34.0); MCV 91.6 fl (83.0-98.0); MONOCYTE # 1.7 K/uL (0.0-1.0); MONOCYTE % 11.6 %; NEUTROPHIL # (ANC) 9.8 K/uL (1.4-9.0); NEUTROPHIL % 66.9 %; NRBC % 0 /100WBC (0-0.00); RBC 3.82 M/uL (4.00-6.00); RDW-CV 13.9 % (11.9-14.6); WBC 14.7 K/uL (4.0-11.0)
[2016-07-17 14:57] LABS: PLATELET COUNT 784 K/uL (150-450)
[2016-07-17 15:05] LABS: ANION GAP 11.2 (10.0-19.0); BLOOD UREA NITROGEN 28 mg/dL (6-24); CHLORIDE 96 mMol/L (96-110); CO2 33 mMol/L (22-32); CREATININE 0.9 mg/dL (0.6-1.3); ESTIMATED GFR (MDRD EQUATION) > 60; POTASSIUM 4.2 mMol/L (3.7-5.1); SODIUM 136 mMol/L (135-145)
--- NOTE | 2016-07-17 16:41 | NUR ---
Significant Event: Alert and orientd. Forgetful at times. [place] given at 1608. Pain was being rated at 9 all day. [place] order was changed from every 6 hours to every 4 hours. [facility] clinic stopped by and was concerned that there wasnt going to be much else they could do due to patient noncompliance. Dressing changes to stump and foot daily. Patient wore stump protector today but would only wear it if it was very loose. Uses urinal. Participated in all therapies. Follow up:
--- NOTE | 2016-07-18 03:58 | NUR ---
Significant Event:PT AAOX3 HOWEVER CAN BE FORGETFUL.PLEASANT WITH STAFF. VSS.DOES COMPLAIN OF PAIN TO RIGHT KNEE AND STUMP AREA. PRN NORCO 2 TABS LAST GIVEN AT 0300. HAS BEEN SLEEPING SINCE WITH NO COMPLAINTS. PT REFUSES TO ELEVATE STUMP STATES THAT IT ISNT COMFORTABLE LIKE THAT. USES BED SIDE URINAL. PT NOTED TO HAVE NUMEROUS OPEN AREA ON ARMS AND CONTINUES TO PICK AT THE AREA. PT USES CALL LIGHT WHEN NEEDING ASSISTANCE.CONTINUES TO BE NON COMPLIANT WITH STUMP SHAPER. ENCOURAGED TO LEAVE IT ON HOWEVER CONTINUES TO REMOVE. Follow up:
--- NOTE | 2016-07-18 16:18 | NUR ---
D: TR progress note for 07/18/16. I: Pt seen for 2 units at 1318 for cognitive thinking task, coping skills, processing and functional transfers. R: Pt seen for functional skills building working on motor skills, scanning sequencing, attention to task, and coordination doing new leisure word task "fillins" to promote recovery with cognition and for coping strategies post discharge. Task was adapted by color coding and decreasing complexity. Pt demonstrated some difficulty with processing information on game's strategy but able to comprehend and follow task with min cues. Pt by end of session able to complete task SBA > occasional cues. Pt transferred WC > bed SBA doing scoot type transfer with cues for LLE foot plates and SBA for bed mobility. P: Will continue to see to address goals and plan of care.
--- NOTE | 2016-07-18 16:52 | NUR ---
Significant Event:PATIENT ALERT AND ORIENTED THIS SHIFT. VSS. TRANSFERS WITH 1 ASSIST, GAIT BELT PIVOT TRANSFER. DID WEAR AMPUSHIELD FOR A FEW HOURS THIS AM. TOOK IT OFF AROUND LUNCH TIME. IT CAUSES HIM A GREAT DEAL OF PAIN. DRESSINGS CHANGED THIS AFTERNOON AFTER ADELITA WAS IN TO SEE PATIENT. INCISIONS HEALING WELL. SMALL AMOUNT OF DRAINAGE PRESENT. COMPLAINED OF HIS GROINS BEING SORE. JUAN GROINS VERY RED, EXCORIATED AND HAS SOME EXUDATE PRESENT. AREA CLEANED WELL AND ALOE VESTA APPLIED. ORDER RECEIVED FOR NYSTATIN POWDER AND WAS INITIATED THIS AFTERNOON. NEEDS GOOD PERICARES. COMPLAINS OF PAIN IN HIS RIGHT LEG AND TAKES NORCO FOR PAIN. GIVEN 2 NORCO THIS MORNING AT 1130 LAST DOSE. NO OTHER COMPLAINTS. Follow up:
--- NOTE | 2016-07-19 03:30 | NUR ---
Significant Event:Pt sits on bedside edge, returns to bed by self and repositions self in bed. Drsg and radiologist to rt bka, refuses brace. Is a one assist pivot transfer.Damir and drsg to left foot/toes intact, small amt edema visible to left heel/foot. Bilat groins very red/excoriated--clansed and applied nystatin powder. Appetite good, had snack at bedtime. C/o rt stump pain, given [place] 2 tabs for pain control, last dose given at 2204, generally rates it at a 6. Does IS with range of 4846-4146. Has had 5 voids with 1075 ml out. Last bm on Sunday. Oral in 660 ml. Follow up: Continue to offer brace for pt to wear on rt stump despite refusal, Obtain order for prn sleeper. Good skin cares to groins.
--- NOTE | 2016-07-19 11:48 | NUR ---
D: TR progress note for 07/19/16. I: Pt seen for 2 units at 1100 in group session for education on relaxation techniques, stress/pain management, coping strategies, and leisure education. R: Pt seen for functional skills building working on relaxation techniques, stress/pain management, and continued education on coping skills to increase independence and promote recovery in anticipation for discharge back into community. Pt actively participated in session, completed functional social communication skills independently which involved personal introduction of self and identification of ways pt dealt with pain/stress prior to hospitalization other than medication. Education completed by verbal discussion and modeling on the signs and symptoms the physical stress/pain can cause on the body and it's affects along with identification of coping strategies, relaxation techniques using music, playaways, aromatherapy, breathing exercises and leisure activities. P: Will continue to see to address goals and plan of care.
--- NOTE | 2016-07-19 17:25 | NUR ---
Significant Event:PATIENT ALERT AND ORIENTED THIS SHIFT. IS FORGETFUL AT TIMES. VSS. TRANSFERS WITH 1 ASSIST, GAIT BELT AND PIVOT TRANSFER. COMPLAINTS OF PAIN IN RIGHT LEG/STUMP. TAKES NORCO 2 TABS PO FOR PAIN. LAST DOSE AT 1500. DID WEAR AMPUSHIELD FOR SEVERAL HOURS TODAY AND DID WELL. RESTED IN WHEELCHAIR AFTER THERAPY AND PLANS TO GO TO BED AFTER SUPPER IS DONE. DRESSING CHANGES DONE PER ORDER. INCISIONS HEALING WELL. NEEDS TO HAVE DRESSING REMOVED FROM LEFT FOOT AT BEDTIME TO ALLOW INCISION TO AIR OUT SOME AND DRY. NO OTHER COMPLAINTS. Follow up:
--- NOTE | 2016-07-20 04:54 | NUR ---
Alert and oriented. Calls for assistance as needed. Can be impulsive at times. HI/Low bed and bed alarms on at all times. Reinforce that he calls for nurse to transfer and keep wheelchair at distance from bed/chair. Is one person stand pivot transfer, does well. Takes Emery x 2 tabs for s/o rt stump pain. Last given at 0440. Dsing to left foot was removed at hs as ordered and open to air. Need to redress this am with gauze, tape and Kerlix. Groin area excoriated on rt and red on left. Note to Dr Rojas to change to Nystatin ointment rather than powder to see if that might work better.
--- NOTE | 2016-07-20 16:54 | NUR ---
Is A/O.Impulsive at times.New drsg put on Rt.foot/toe area this morning.Has Rt.stump talent manager on alot of the times.Rt.stump drsg/Damir wrapped is D/I.Groin very red "yeasty".Nystatin oint.ordered & put on & the powder was dc'd.One person to stand/pivot.Had 1 [place] at 1130 for Rt.stump pain.
--- NOTE | 2016-07-21 04:30 | NUR ---
Significant Event: Patient is alert and oriented. VSS. Up 1 assist walker pivot transfer. Has stump assembler movement to his right BKA. Is to wear his ampushield but takes it off when in bed. Has issues with pain to the right stump and requests 2 [place] last given at 0230. Patient rests in bed for short times then sits up on side of the bed t/o the night. Voids per urinal during the night. Not much sleep during the night. Dressing to his left foot is removed during the night as ordered needs to be redressed in AM. Has nystatin cream to the groin. Alarm for safety. Follow up:
--- NOTE | 2016-07-21 12:41 | NUR ---
Significant Event: Patient is alert/oriented X 3. Forgetful at times. Stump is covered with dressing. Applied dressing to bottom left toes with no issues. Patient working with therapy. Does have quite a bit of pain. Has had norco x 2 so far this shift. Will continue to address pain. Follow up:
--- NOTE | 2016-07-22 02:38 | NUR ---
Significant Event: Patient alert and oriented x 3. VSS. Up one assist pivot transfer with walker. Stump technical recruiter in place. Is to use his stump protector but c/o it causes pain. Did not wear during the night. Dressing to his left foot is to be removed at night and placed back on in AM. Has one small area with a small amt of bloody drainage. Patient needs to be reminded to elevate his foot and stump. Likes to sit on the side of the bed dangling his legs. Has issues with itching and picks at his skin to the point it causes bleeding sores. Have been kay aloe to the itching areas. Request Benadryl for the itching and also as a sleeper. Melatonin was ordered for sleep. He did sleep better t/o the night. Takes [place] for pain last at 18:37 last night. Follow up:
--- NOTE | 2016-07-22 14:31 | NUR ---
Significant Event: Alert and oriented. Forgetful at times. Up with 1A scoot pivot. Dressing to stump changed. Small amount of bloody drainage. Dressing to left foot applied. Takes scheduled neurontin. Center given at 1149. Pain remains at a 6. Stump visual artist on. Refuses to wear stump protector. Cooperative with cares. Follow up:
--- NOTE | 2016-07-23 03:52 | NUR ---
Alert and oriented. Calls for assistance as needed. In bed this entire shift, but dangles at bedside. Takes [place] x2 tabs at 1035 and 0120. Voids per urinal. Refuses laxative this evening, but states he will take some this am so that he has BM today before therapies resume tomorrow. Teaching done r/t effects of narcotics and constipation. Excessive itching to rt stump, romero behind the knee and at incision site. Small amt of bleeding from stapled area. Recieved order for topical hydrocorisone which has now helped. Refuses to keep gauze drsing on stump due to itching. Drsing to left foot removed as ordered for the night and open to air. Area is now entirely scabbed over with no drainage. Request for oral Benedryl prn asked for per note on pts chart.
--- NOTE | 2016-07-23 14:13 | NUR ---
Significant Event: Alert and oriented. Up with 1A stand pivot. [place] last given at 1406. Last BM 07/18. Milk of mag given. Dressings applied to right stump and left foot. Refuses stump protector. Rotary Veneer Machine Operator remains off due to pressure sore behind right knee. Topical hydrocortisone cream used for itching. Seems to help. Nithya ordered PRN at HS. Uses call light appropriately. Follow up:
--- NOTE | 2016-07-24 05:06 | NUR ---
Alert and oriented. Calls for assistance as needed. Still no results from Milk of Mag given at 2:30 pm. yest. Pt realizes that he may need suppostory today or another round of MOM. Uses Hydrocortisone cream to stapled incision site on rt stump. Less itchy tonight, and pt keeps gauze dsing on. Has small amt of shadow drainage. Takes 2 [place] for pain, last given at 0310.
[2016-07-24 05:36] LABS: BASOPHIL # 0.2 K/uL (0.0-0.2); BASOPHIL % 1.6 %; EOSINOPHIL # 0.5 K/uL (0.0-0.5); EOSINOPHIL % 4.7 %; HEMATOCRIT 32.2 % (37.0-53.0); HEMOGLOBIN 10.2 g/dL (12.0-17.0); IMMATURE GRANULOCYTE % 0.3 %; LYMPHOCYTE # 3.2 K/uL (0.8-4.0); LYMPHOCYTE % 28.1 %; MCH 28.7 pg (27.0-34.0); MCHC 31.7 gm/dL (32.0-36.5); MCV 90.7 fl (83.0-98.0); MONOCYTE # 2.2 K/uL (0.0-1.0); MONOCYTE % 19.7 %; MPV 8.8 fl (9.4-12.4); NEUTROPHIL # (ANC) 5.1 K/uL (1.4-9.0); NEUTROPHIL % 45.6 %; NRBC % 0 /100WBC (0-0.00); PLATELET COUNT 714 K/uL (150-450); RBC 3.55 M/uL (4.00-6.00); RDW-CV 13.8 % (11.9-14.6); WBC 11.2 K/uL (4.0-11.0)
[2016-07-24 07:18] LABS: ALBUMIN 2.5 gm/dL (3.5-5.0); ALK PHOS 109 IU/L (33-138); ALT 16 IU/L (12-78); ANION GAP 9.4 (10.0-19.0); AST 22 IU/L (10-40); BLOOD UREA NITROGEN 18 mg/dL (6-24); CALCIUM 9.2 mg/dL (8.5-10.5); CHLORIDE 100 mMol/L (96-110); CO2 34 mMol/L (22-32); CREATININE 0.7 mg/dL (0.6-1.3); ESTIMATED GFR (MDRD EQUATION) > 60; POTASSIUM 4.4 mMol/L (3.7-5.1); SODIUM 139 mMol/L (135-145); TOTAL PROTEIN 7.7 g/dL (6.0-8.4)
[2016-07-24 07:19] LABS: TOTAL BILIRUBIN 0.2 mg/dL (0.0-1.5)
--- NOTE | 2016-07-24 10:22 | NUR ---
[facility] Case Management Prefunctioning and Psycho-Social Initial Assessment for 07/13/16 and Case Conference Note for 07/18/16 D: Initial Shadow Graph Weight OperatorToggler and Case Conference Note. I: Input from: patient, Dr. 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 Admission Date to [facility]: 07/13/16 Admission Date to Hospital: 07/06/16 Prior level of functioning: patient was independent with adl's and household prior to hospitalization. Prior living situation: one story house Financial resources/expectations: patient does not have any insurance. Resources used: none. Resources available: HHC, outpatient therapy, SNF, GROUP HOME, [facility], DME. Family support available: friends, brothers Understands nature of health condition: yes Recognizes impact of health condition on lifestyle: yes Vocational/Educational: unemployed Behavior/Emotional needs: cues for safety. Monitor for signs and symptoms of depression and anxiety. Legal concerns: none. Discharge goal: home with support vs. SNF or [facility]. Assessment: Jensen is a 56 year old man from [place], [place] admitted after right BKA. Lives alone in [place] and has limited resources due to not being able to work. He has some friends that give him money once a week. Team conference was held on 07/18/16 and plan is d/c in approx. 7 days. Unsure what d/c plan will be yet as patient is having significant cognitive issues which make living alone a concern. Will follow and assist as needed. Orientation to the program and CM services completed with patient. Initial plan of care and estimated length of stay discussed, disclosure statement reviewed including patient assessment rights. P: Target date and individual goals established. Please see POC for details. For additional information please see Nursing Data Base, PT, OT, TR, ST, Initial assessments to [facility].
--- NOTE | 2016-07-24 11:22 | NUR ---
A-NUTRITION F/U CBW 65.8 KG. NO BM SINCE 07/20-MEDS BEING GIVEN S/P R)BKA. EMAIL MARKETING INTERN REMAINS OFF D/T PRESSURE SORE BEHIND R)KNEE. LABS: NA 139, K+ 4.4, GLU 84, BUN 18, ATTENDING PSYCHIATRIST 0.7, ALB 2.5, PREALB 20.0. PREALB UP FROM 12.0. MEDS: NORCO, MELATONIN, BENADRYL DIET RX: REGULAR. PO INTAKE 100% FOR THE MOST PART. RECEIVES ENSURE ENLIVE BID; TAKES IT WELL. EST NUTR NEEDS: [id number] KCALS AND 78-98 GM PROTEIN D-AT NUTRITION RISK W/INCREASED PROTEIN NEEDS R/T HEALING AEB R)BKA, PRESSURE ULCER BEHIND R)KNEE I-CONTINUE W/ENSURE ENLIVE BID AT B/D M/E-GOAL: PO INTAKE >/=75% FOR DURATION OF ADMIT. 1)F/U PO INTAKE, WT, LABS, SUPPLMENT, AND POC IN 7-9 DAYS 2)ASSIST NEEDED
--- NOTE | 2016-07-24 16:08 | NUR ---
Significant Event:PATIENT ALERT AND ORIENTED THIS SHIFT. VSS. TRANSFERS WITH 1 ASSIST, GAIT BELT AND PIVOT TRANSFER. TAKES NORCO FOR PAIN. GIVEN 2 TABS PO LAST DOSE AT 1214. DRESSINGS CHANGED TO RIGHT STUMP AND LEFT FOOT AFTER DR CORTES HERE TO SEE PATIENT. HAS MULTIPLE SCABBED AREAS OVER ARMS AND ON BRIDGE OF NOSE THAT HE PICKS AT AND MAKES THEM BLEED OCCASIONALLY. DID WEAR AMPUSHIELD FOR A WHILE THIS MORNING BUT TOOK OFF THIS AFTERNOON AFTER THERAPY. DOES NOT WANT TO WEAR STUMP PAINT SPRAYER SANDBLASTER EITHER. DELORES CALLED AND PLANS TO BE HERE THIS AFTERNOON TO SEE PATIENT. WILL TRIM PAINT SPRAYER SANDBLASTER TO MAKE SHORTER AND HOPE IT WONT RUB ON THE BACK OF HIS LEG ANYMORE. NO OTHER COMPLAINTS. Follow up:
--- NOTE | 2016-07-25 02:52 | NUR ---
Significant Event: Patient is alert and oriented, VSS. 1 assist stand pivot transfer. Dressing to his right stump, wears a stump gasket supervisor and is to use his ampushield. Dr Navas was in yesterday to check surgical sites and Juan was also here yesterday to check patient ampushield. Plans were made to have patient wear the ampushield t/o the night and keep his right leg on the foot rest during the day for stretching out his contracture. Ampushield placed on at 2130. Patient asked for some [place] at 2255. By 2330 he was rolling in pain, had taken off his ampushield and requested the stump gasket supervisor off. Wanting something else for pain was given ice. Stated he was having the worse pain he ever had, wanted MD called. He is asked to wait just 30 min to see if his pain med would work, if the pain is not better the MD would be called. Placed some Lavender in the room to help him relax. Finally fell asleep with in 30 min. Dressing to his left foot was removed to be redressing in the AM. Follow up:Pain control
--- NOTE | 2016-07-25 14:10 | NUR ---
Significant Event: Alert and oriented. Up with 1A stand pivot transfer. [place] given at 1139 for pain to right stump. Stump heel gouger and protector both on this shift. Dressing to right stump and left foot changed this morning Participated in all therapies. Uses call light appropriately. Follow up:
--- NOTE | 2016-07-25 14:40 | NUR ---
D: TR progress note for 07/25/16. I: Pt seen for 3 units at 1046 for community integration skills building, functional transfers, and safety awareness. R: Pt seen for functional skills building working on mobility, safety, awareness and functional transfers to increase independence in anticipation for discharge home. Pt given verbal instructions on proper technique for car transfers prior to pt completing them. Pt transferred from WC to/from vehicle SBA doing squat/scoot type transfers using door for support with Therapist blocking. Pt was SBA for BLE management and positioning of self with seat surface adapted using trash bag to ease task. Education done on safety with BKA when riding in vehicle and ways to adapt surface to maintain support. Pt tolerated ride with C/o pain by end of session due to late for pain meds. P: Will continue to see to address goals and plan of care.
--- NOTE | 2016-07-26 01:51 | NUR ---
Significant Event: Patient is alert and oriented. VSS. Up one assist with stand pivot transfers. Continues to have issues with pain during the night. Wore his ampushield most of the day yesterday took it off after supper. Once in bed he started c/o of increased pain. Given [place] at 2044 with no relief. Had his stump statistical modeler rolled down and was very tight. Account Financial Manager was removed and placed on very loosely. Finally fell asleep. Woke now for pain med, 0200. Has benadryl cream he can use for his itching and was also given Benadryl for sleep. Continues to pick and itch at his skin. Follow up: reinforse the need for his ampushield.
--- NOTE | 2016-07-26 02:11 | NUR ---
Significant Event: Patient is alert and oriented, VSS. Up one assist pivot transfer. Continues to have issues with pain to the right anterior stump. Wore his ampushield most of the day yesterday. Once in bed he started c/o of pain. He had his stump chip drier rolled up below his knee and was very tight causing pain. Patient given [place] at 2044 without relief. Finally had to take off the chip drier and place it back on loosely. Has benadryl cream for his itchy skin and took Benadryl for sleep. Slept a short while is awake now and requested more pain med at 0200. Follow up: encourage his to use the ampushield.
--- NOTE | 2016-07-26 11:03 | NUR ---
Significant Event:Pt asleep during rounds, awaked approx. 0715, rests in bed between activities. Alert and orientated, but is forgetful, expresses needs well, reviewed with PT about pt's right below knee amp. pain and equipment. Pt reported pt does not remember that the skin irritation in the area of the right knee was caused by post op dressings, not the youth teacher and due to the short term memory loss pt is also in speech therapy. PT to work on some therapy to assist with pain. Pt takes [place] 2 tabs almost every 4 hours per his request. Eats meals in room, sits on edge of bed. Pt uses urinal @ bedside for voiding. Applied moisture barrier to scratch, scabbed areas, pt also applies @ times. Benadryl creme @ bedside, which pt also applies @ times for itch. PT has been pleasant and cooperative wit plan of care. Follow up:pain control, daily dressing change R below knee stump/yordy intact, apply youth teacher, stump brace. Groin care.
--- NOTE | 2016-07-27 04:24 | NUR ---
Significant Event:PT AAO, CAN BE FORGETFUL AT TIMES. PLEASANT WITH STAFF. COMPLAINS OF PAIN TO STUMP AND LEFT FOOT. PRN NORCO 2TABS LAST GIVEN AT 0200 HAS BEEN SLEEPING WELL SINCE THEN. PIVOTS TO BED FROM WHEEL CHAIR. DOES WELL WITH THIS. NOTED TO HAVE SCABBED AREA TO BACK OF RIGHT LEG FROM DRESSING TO STUMP. [place] BANDAGE TO LEFT FOOOF ASWELL. USES URINAL NEEDED. LS CLEAR TO SLIGHTLY COARS,DOES HAVE SOB WITH ACTIVITY. CONTINUES TO BE ON ROOM AIR. USES CALL LIGHT APPROP. Follow up:
--- NOTE | 2016-07-27 11:00 | NUR ---
D: Block Hand Team Conference Follow up for 07/25/16 I: Input from patient/family R: Met with: patient, Dr. Rojas, Mary Driver REAL ESTATE RECRUITER Discussed rehab plan, patient progress, discharge plan and estimated length of stay of d/c planned soon. Patient/Family Preference: Patient is in agreement. Patient voices concern about taking care of himself in his home. Anticipated discharge disposition: unknown. Home vs. [facility] or SNF. Education completed: Education was completed with patient regarding length of stay, progress in therapy and d/c plan. Assessment/Recommendation: Team feels patient is ready for the next level of care. They have some concerns regarding safety at home, but would like to do a home safety evaluation to see ther home and the set up for patient. Patient does have some cognitive deficits that were probably present even before the amputation. P: Case Coordination: Jensen is a 56 year old man from [place], [place] admitted after a right below the knee amputation and left 1st and 2nd toe amputation. His mom lives in a long term. He does have a couple of brothers, but no real close ties with them. There is a family in [place], [place] that gives patient money once a week. We are looking into all options for patient. Romeo is working with patient to apply for Medicaid and disability. Will follow and assist as needed.
--- NOTE | 2016-07-27 14:45 | NUR ---
Significant Event:PATIENT ALERT AND ORIENTED BUT IS FORGETFUL AT TIMES. VSS. TRANSFERS WITH SBA PIVOT FROM BED TO WHEELCHAIR. COMPLAINTS OF PAIN AND TAKES [place] 2 TABS PO FOR PAIN. LAST DOSE AT 1030. WENT ON AN OUTING FOR LUNCH WITH THERAPY. DRESSINGS CHANGED TO LEFT FOOT AND RIGHT STUMP. BOTH SITES HEALING WELL WITH MINIMAL DRAINAGE. HAS SCATTERED SCABS OVER ARMS AND SCRATCHES AT TIMES WHICH MAKES THEM BLEED. DOES HAVE HYDROCORTISONE HE CAN USE AT TIMES. HAS AN EPISODE OF DIZZINESS THIS AFTERNOON DURING THERAPY. VS REMAINED UNCHANGED AND REPORTED THAT THIS HAD HAPPENED BEFORE. HE STATED THAT WHEN IT HAPPENED BEFORE THAT IT WAS DUE TO BLOOD PRESSURE BUT HIS BP WAS GOOD TODAY. WILL MONITOR AND HAS HAD NO FURTHER COMPLAINTS SINCE THEN. NO OTHER COMPLAINTS. Follow up:
--- NOTE | 2016-07-27 22:15 | NUR ---
Significant Event: Patient alert and oriented x 3, VSS. Was very tired tonight, went to bed after supper and fell asleep. Had to wake to give HS meds. Was given 2 [place] at 2014. Has had his ampushield on all night and just took it off. Dressing was removed to his left foot. Voids per urinal. Follow up:
--- NOTE | 2016-07-28 16:12 | NUR ---
Significant Event: Pt is alert, cooperative with cares. Forgetful. V/S stable. Drsng changed r) knee bka, scant amt serous drnge noted on old drsng. R) foot wrapped in adria wrap. Gave norco prn x 3, last at 1438 (2 tabs) with relief noted. Pt refused miralax today. No c/o dizziness. Pt has cyst on r) hand; states it is bigger today. Nontender to palpation. Hospitalist (Dr. Pemberton) will be coming to look at it. Follow up:
--- NOTE | 2016-07-29 03:55 | NUR ---
Significant Event: Patient alert and oriented. Forgetful at times. VSS on room. [place] given x1 for complaints of right leg discomfort with relief noted. Patient request stump recreational assistant to be taken off at bedtime. Dressing to right leg changed as it came off. Left foot dressing removed and foot left open to air per orders. Rested well throughout shift. Pleasant and cooperative with cares. Follow up: continue to monitor
--- NOTE | 2016-07-29 10:35 | NUR ---
Significant Event:Pt awake during rounds, had recieved a pain med just prior from noc shift. Right knee stump dressing had also been changed by noc shift. Left foot dressing applied, on during the day, off @ noc. Dr Jackson here, took chart up to therapy gym, assessed pt right hand cyst. No new orders @ this time, progress note, reported pt wanted cyst removed. Pt remains alert and oriented X3, but forgetful and needs reinforcement for safety, and care done. Pt has been pleasant and cooperative with plan of care. Uses urinal @ bedside. Follow up:pain control/[place] 2 tabs, dressing changes, left foot dressing off @ noc, pt often asks for survey worker to be removed on right stump @ noc.
--- NOTE | 2016-07-30 04:09 | NUR ---
Significant Event: Redressed drsg to rt stump, stapled incision approximated with minimal edema. Does have abraded/red area behind rt knee where it flexes, placed extra fluff drsg to cushion area and rewrapped with kerlix gauze wrap. Refuses to have relief map modeler applied and refused ampushield. Drsg to lt foot intact, did not want drsg removed at hs. Has picked at scabs on arms/posterior neck with scant/small amt bloody drainage. Voids per urinal x 5 with 1025 ml out. Last bm yest on day shift. Groins healing, slight red to rt groin with skin intact. [place] 2 tabs given twice, will be giving another dose around 0430...has rated pain at 6-8, sleeps at short intervals, sits at bedside. Cyst to palm area of hand/rt thumb protruding, tender along upper edge. Follow up: Pain control, drsg changes, encourage use of stump relief map modeler ampushield. IS at bedside.
--- NOTE | 2016-07-30 15:32 | NUR ---
Significant Event:Pt awake during rounds, sitting on edge of bed. Had pain med previous shift, reported comfortable. Minimal amt of oozing from stump, bed linens changed, and pillow cases. Dressings applied to left foot, stump dressing changed early this am. Alert and orientated, x3 but forgetful, pt thought it was 7 pm this am instead of 7 am. No changes in assessment from previous day. @ noon pt reported he just didn't feel so well, ate 1/2 of sandwich, given some seirra mist with some relief. Ate some jello, and had a pop sicle, reported felt a little better. 1432 [place] 2 tabs given, and scheduled neurotin. Pt continues to report he is ok @ this time. Pt has been pleasant and cooperative with plan of care. Follow up:Pain control [place] 2 tabs, dressing changes, left foot dressing off @ noc.
[2016-07-30 23:24] LABS: BASOPHIL # 0.2 K/uL (0.0-0.2); BASOPHIL % 0.6 %; EOSINOPHIL # 0.3 K/uL (0.0-0.5); EOSINOPHIL % 1.2 %; HEMATOCRIT 32.4 % (37.0-53.0); HEMOGLOBIN 10.4 g/dL (12.0-17.0); IMMATURE GRANULOCYTE # 0.1 K/uL (0.0-0.3); IMMATURE GRANULOCYTE % 0.5 %; LYMPHOCYTE # 3.4 K/uL (0.8-4.0); LYMPHOCYTE % 13.8 %; MCH 28.6 pg (27.0-34.0); MCHC 32.1 gm/dL (32.0-36.5); MONOCYTE # 2.9 K/uL (0.0-1.0); MONOCYTE % 11.9 %; MPV 9.3 fl (9.4-12.4); NEUTROPHIL # (ANC) 17.5 K/uL (1.4-9.0); NRBC % 0 /100WBC (0-0.00); PLATELET COUNT 606 K/uL (150-450); RBC 3.64 M/uL (4.00-6.00); RDW-CV 14.1 % (11.9-14.6); WBC 24.2 K/uL (4.0-11.0)
[2016-07-30 23:43] LABS: ANION GAP 13.5 (10.0-19.0); BLOOD UREA NITROGEN 19 mg/dL (6-24); CALCIUM 8.8 mg/dL (8.5-10.5); CHLORIDE 96 mMol/L (96-110); CO2 28 mMol/L (22-32); CREATININE 0.9 mg/dL (0.6-1.3); ESTIMATED GFR (MDRD EQUATION) > 60; PHOSPHORUS 3.8 mg/dL (2.5-4.9); POTASSIUM 4.5 mMol/L (3.7-5.1); SODIUM 133 mMol/L (135-145)
[2016-07-31 01:59] LABS: BILIRUBIN URINE NEGATIVE (NEGATIVE); BLOOD URINE NEGATIVE /UL (NEGATIVE); GLUCOSE URINE NEGATIVE (NEGATIVE); KETONE URINE NEGATIVE (NEGATIVE); LEUKOCYTES URINE NEGATIVE /UL (NEGATIVE); NITRITE URINE NEGATIVE (NEGATIVE); PROTEIN URINE NEGATIVE (NEGATIVE); SPEC GRAVITY URINE 1.005 (1.003-1.035); UROBILINOGEN URINE NORMAL (NORMAL)
[2016-07-31 02:01] LABS: COLOR URINE YELLOW (YELLOW); TURBIDITY URINE CLEAR (CLEAR)
--- NOTE | 2016-07-31 05:06 | NUR ---
Significant Event:Pt c/o not feeling good yesterday, with first assessment pt afebrile 100.5, 92% on room air and 108/57, resp 20, tachy in 90's. Fine crackles/diminished to lung lopez with nonprod cough, dry to oral membranes. Encouraged oral fluids--took Sprite/ice water. Gave [place] 2 tabs at 1857 with pain at 6-7. Encouraged use of IS, able to reach 3417-5381 q 2 hrs. Temp hovered around 100-99.7, cough continued, pt more drowsy than usual--possible fatigue as hadn't sleep in the past few nights very well. 98/57 with sats at 86% shortly before midnite. Called Kelvin--shared concerns, orders for CXR, CBC,BMP,MG, PHOS, PRO-BNP. Gave tylenol at 2323, called Kelvin as labs came in--WBC 24. Kelvin came over to examine pt, gave him addtl info and he suspects sepsis. Did Blood cultures x 2, urine plus culture, lactic acid, and started Zosyn after 0130 and Vanco by 0245 after a liter bolus of NS, now has running rate of 75 ml/hr. Temp at 0420 was 100.5, gave tylenol then. Po intake 700 ml plus 1474 of IV fluids; output clear light yellow of 1875 ml. Last bm on . Pending on the cultures, urine looks clear. Scant amt old light red drainage to drsg, no visible drainage along stapled approx incision, scabbed along the edges. Small 1 cm circular area to posterior medial knee with some redness encircling area, no drainage. Pt refuses pharmacy helper or ampushield to rt stump. Drsg removed from left foot/toes, incisional area approx with scabbing with some redness to distal pedal area of foot. Pt drowsy and sleeps more tonight, is more sedated/weak with temp elevation--once it drops he is more alert/responsive to staff. Lower limbs elevated on pillows. Spillage of urine in brief x 1. Bilat groins only slightly red, much improved. Has scattered scabs on arms/chest that he picks at, but not so much tonight. Follow up:Pending cultures, Cont with atb's, ? Transfer off gir--no changes as of now, update Bob/Renetta on rounds
[2016-07-31 09:43] LABS: ANION GAP 12.8 (10.0-19.0); BLOOD UREA NITROGEN 14 mg/dL (6-24); CALCIUM 8.9 mg/dL (8.5-10.5); CHLORIDE 102 mMol/L (96-110); CO2 27 mMol/L (22-32); CREATININE 0.9 mg/dL (0.6-1.3); ESTIMATED GFR (MDRD EQUATION) > 60; POTASSIUM 3.8 mMol/L (3.7-5.1); SODIUM 138 mMol/L (135-145)
[2016-07-31 10:12] LABS: HEMATOCRIT 31.7 % (37.0-53.0); MCH 28.1 pg (27.0-34.0); MCHC 31.5 gm/dL (32.0-36.5); MPV 9.6 fl (9.4-12.4); PLATELET COUNT 571 K/uL (150-450); RBC 3.56 M/uL (4.00-6.00); RDW-CV 14.2 % (11.9-14.6)
[2016-07-31 10:14] LABS: WBC 22.8 K/uL (4.0-11.0)
[2016-07-31 10:52] LABS: BANDED NEUTROPHIL # 1.1 K/uL (0.0-0.1); BANDED NEUTROPHILS % 5 %; LYMPHOCYTE # 2.1 K/uL (0.8-4.0); LYMPHOCYTE % 9 %; MONOCYTE # 2.5 K/uL (0.0-1.0); SEGMENTED NEUTROPHIL # 16.9 K/uL (1.4-9.0); SEGMENTED NEUTROPHIL % 74 %
--- NOTE | 2016-07-31 11:24 | NUR ---
A-NUTRITION F/U C/O NOT FEELING WELL YESTERDAY; PO INTAKE DOWN. FEVER. INCISION TO R)STUMP W/NO DRAINAGE; SCABBING ALONG EDGES. (+)BM CBW 64.9 KG LABS: NA 138, K+ 3.8, GLU 125, BUN 14, RESERVATIONS SALES SUPERVISOR 0.9, PREALB 16.0. CRP 13.50 WBC 24.2, H/H 10.4/32.4 PREALB DOWN FROM 20.0 LAST WEEK; ELEVATED CRP NOTED, ALONG WITH WBC. MEDS: ZOSYN, VANCO, COLCHICINE, ZYPLOPRIM DIET RX: REGULAR W/ ENSURE ENLIVE BID. PO INTAKE OF MEALS 50-100%; AVG 73%. TAKING ENSURE BID WELL; 100%. EST NUTR NEEDS: 2206-7328 KCALS AND 78-98 GM PROTEIN D-AT NUTRITION RISK W/INCREASED PROTEIN NEEDS R/T HEALING AEB R)BKA, PU BEHIND R)KNEE I-CONTINUE W/ENSURE ENLIVE BID M/E-GOAL: PO INTAKE >/=75% BY DISCHARGE 1)F/U PO INTAKE, SUPPLEMENT, WT, LABS, SKIN, AND POC IN 4-6 DAYS 2)WILL ASSIST NEEDED
--- NOTE | 2016-07-31 16:58 | NUR ---
Significant Event:PATIENT ALERT AND ORIENTED THIS SHIFT. VSS. TRANSFERS WITH 1 ASSIST, GAIT BELT AND PIVOT TRANSFER. IV INFUSES AT 75ML/HR. ANTIBIOTICS ORDERED. HIGHEST TEMP NOTED TODAY WAS 99.1. ADELITA AND DR CORTES HERE TO SEE PATIENT THIS AFTERNOON AND ADELITA WILL RETURN TOMORROW TO REMOVE SUTURES. WE WILL REMOVE HIS FAIZA THIS EVENING YET. IS FEELING BETTER THIS AFTERNOON. WENT DOWN FOR AN ULTRASOUND OF THE CYST ON HIS RIGHT HAND. NO RESULTS NOTED YET. NO OTHER COMPLAINTS. HAS NOT REQUESTED ANY PAIN MEDS TODAY. THERAPIES ON HOLD TODAY ALSO. Follow up:
--- NOTE | 2016-08-01 04:32 | NUR ---
Alert and oriented. Calls for assistance as needed. Temp down now to 98.0 and 97.7. BN=391/57 ad 107/60. Vital signs ordered q 6 hrs. Has been awake and talkative most of night. Watches the clock for next round of pain meds. Last given at 0130 and pt dozes off in between. Awakens at 0400 and again requests 2 [place]. Tell him it's too early and reminded of the limit on acetaminophen in 24 hrs. Encouraged him to wait or take just one during every 3 hrs during the day. Did not take any [place] during day shift yest. [place] were removed last evening without difficulty. Rt stump wrapped with gauze per pt request to prevent him from picking on scab and itching. IV site healthy to Lt forearm. Does complain of mild discomfort after Vancomycin infused. Ice pack applied to site. Keiry will see pt today to remove sutures from surgical incision.
[2016-08-01 05:50] LABS: BASOPHIL # 0.1 K/uL (0.0-0.2); EOSINOPHIL # 0.6 K/uL (0.0-0.5); EOSINOPHIL % 3.9 %; HEMATOCRIT 31.9 % (37.0-53.0); HEMOGLOBIN 9.9 g/dL (12.0-17.0); IMMATURE GRANULOCYTE # 0.1 K/uL (0.0-0.3); IMMATURE GRANULOCYTE % 0.3 %; LYMPHOCYTE # 3.2 K/uL (0.8-4.0); MCH 28.3 pg (27.0-34.0); MCV 91.1 fl (83.0-98.0); MONOCYTE # 2.5 K/uL (0.0-1.0); MONOCYTE % 17.4 %; MPV 9.7 fl (9.4-12.4); NEUTROPHIL % 55.4 %; NRBC % 0 /100WBC (0-0.00); PLATELET COUNT 464 K/uL (150-450); RDW-CV 14.1 % (11.9-14.6); WBC 14.4 K/uL (4.0-11.0)
[2016-08-01 06:05] LABS: ANION GAP 12.6 (10.0-19.0); BLOOD UREA NITROGEN 16 mg/dL (6-24); CALCIUM 8.8 mg/dL (8.5-10.5); CHLORIDE 101 mMol/L (96-110); CO2 29 mMol/L (22-32); CREATININE 0.8 mg/dL (0.6-1.3); ESTIMATED GFR (MDRD EQUATION) > 60; POTASSIUM 3.6 mMol/L (3.7-5.1); SODIUM 139 mMol/L (135-145)
--- NOTE | 2016-08-01 14:28 | NUR ---
D: TR progress note for 08/01/16. I: Pt seen for 3 units at 1332 for community integration skills building, functional transfers, and safety awareness. R: Pt seen for functional skills building working on mobility, safety, awareness and functional transfers to increase independence in anticipation for discharge back into community. Pt unable to recall technique for car transfers needing setup and verbal cues. Pt transferred from WC to/from vehicle SBA doing scoot type transfers using door for support with Therapist blocking. Pt was SBA for BLE management and positioning of self with seat surface adapted using trash bag to ease task and BKA supported with cushion. Pt tolerated ride with no C/o pain or discomfort verbalizing enjoyment of session. P: Will continue to see to address goals and plan of care.
--- NOTE | 2016-08-01 15:50 | NUR ---
Significant Event: PATIENT UP 1 ASSIST, GAIT BELT, SCOOT TRANSFER. ALERT AND ORIENTED X3. Q6 VITALS. NEW IV TO LEFT AC. VANCO AND ZOSYN RUNNING INTERMITTENTLY. VITALS STABLE ON ROOM AIR. AFEBRILE TODAY. INFECTIOUS DISEASE TO SEE TOMORROW FOR LEUKOCYTOSIS AND FEVER OF UNKNOWN ORIGIN. ADELITA FOSS APRN REMOVED SUTURES TO LEFT FOOT WOUND. STUMP EMBOSSING PRESS OPERATOR MOLDED GOODS TO RIGHT STUMP. STUMP GUARD ON ALL DAY. PATIENT SHOWERED TODAY. BM TODAY. USES URINAL WELL ON HIS OWN. NORCO FOR PAIN. Follow up:
--- NOTE | 2016-08-02 03:11 | NUR ---
Significant Event: A&O, VSS q 6 hrs. Patient up one assist GB/pivot transfer. Chepe removed from patient right stump, Steri strips applied. Keiry RomoCanonesMendez BOOGIE was here yesterday to remove the sutures was not able to remove all of them was told she would return to work on them. IV to his left AC. Is getting Zosyn TID and Vanco today at 0800. Infectious Disease will be here today for Leukocytosis and fever of unknown origin. Patient c/o of the wound to the posterior right knee, area is red. Took off the stump family consumer scientist due to discomfort. Given [place] 2044. Takes Benadryl for itching and sleep. Follow up:
[2016-08-02 07:14] LABS: BASOPHIL # 0.2 K/uL (0.0-0.2); EOSINOPHIL # 0.6 K/uL (0.0-0.5); EOSINOPHIL % 4.3 %; HEMATOCRIT 31.9 % (37.0-53.0); HEMOGLOBIN 10.1 g/dL (12.0-17.0); IMMATURE GRANULOCYTE # 0.1 K/uL (0.0-0.3); IMMATURE GRANULOCYTE % 0.4 %; LYMPHOCYTE # 2.4 K/uL (0.8-4.0); LYMPHOCYTE % 16.3 %; MCH 28.4 pg (27.0-34.0); MCHC 31.7 gm/dL (32.0-36.5); MCV 89.6 fl (83.0-98.0); MONOCYTE # 1.9 K/uL (0.0-1.0); MONOCYTE % 12.5 %; MPV 9.3 fl (9.4-12.4); NEUTROPHIL # (ANC) 9.7 K/uL (1.4-9.0); NEUTROPHIL % 65.5 %; NRBC % 0 /100WBC (0-0.00); PLATELET COUNT 453 K/uL (150-450); RBC 3.56 M/uL (4.00-6.00); RDW-CV 13.9 % (11.9-14.6); WBC 14.8 K/uL (4.0-11.0)
[2016-08-02 07:25] LABS: ANION GAP 14.6 (10.0-19.0); BLOOD UREA NITROGEN 12 mg/dL (6-24); CALCIUM 9.1 mg/dL (8.5-10.5); CHLORIDE 99 mMol/L (96-110); CO2 28 mMol/L (22-32); ESTIMATED GFR (MDRD EQUATION) > 60; POTASSIUM 3.6 mMol/L (3.7-5.1); SODIUM 138 mMol/L (135-145)
--- NOTE | 2016-08-02 09:24 | NUR ---
D: Seo Professional Team Conference Follow up for 08/01/16 I: Input from patient/family R: Met with: patient, Dr. Rojas, Mary Driver OLDER WORKER SPECIALIST Discussed rehab plan, patient progress, discharge plan and estimated length of stay of d/c planned as soon as something can be arranged. Patient/Family Preference: Patient is in agreement. Anticipated discharge disposition: unknown. Education completed: Education was completed with patient regarding length of stay, progress in therapy and d/c plan. Assessment/Recommendation: Team recommends d/c soon. P: Case Coordination: Jensen is a 56 year old man from [place], [place] admitted after right below the knee amputation. Also 1st and 2nd toe amputation on the left foot. We were planning a home safety evaluation and I visited with patient's friend Ruy regarding putting in a ramp. Ruy voices that he just went to patient's home the other day and the doorknob fell out when he opened the door. He voiced that there is no running water in the house at all and there is a hole in the roof where you can see the john from inside the house. He said the home is so filled with debris that he would be unable to maneuver wheelchair around. He said that patient does have a space heater that he moves from room to room to keep warm. In addition, Ruy went downtown to city office and they told him that no water has run to patient's place for a very long time. Approx. 3 years ago, the [facility] had to hire a clean up crew to clean patient's garage as he was using it for his bathroom. I visited with the jail in [place] and they said that they really need to have a payor source to be able to care for patient. Over the weekend, patient spiked fever and is currently on IV antibiotics. Unsure how long he will be on this. May need to look into homeless custodial, etc. for d/c plan. Will follow.
--- NOTE | 2016-08-02 11:42 | NUR ---
D: TR progress note for 08/02/16. I: Pt seen for 2 units at 1102 in group session for education on pain/stress management, coping strategies, and leisure education. R: Pt seen for functional skills building working on stress management, relaxation and education on signs and symptoms of depression to increase awareness on options and promote recovery. Pt actively participated in session, completed functional social communication skills independently which involved personal introduction of self and hometown. Education completed by verbal discussion on the signs and symptoms that physical stress/pain can cause the body and how it affects healing along with identification of coping strategies, relaxation techniques, and options available. Pt transferred WC > toilet doing scoot type transfer SBA and SBA for clothing management. P: Will continue to see to address goals and plan of care.
--- NOTE | 2016-08-02 16:25 | NUR ---
Significant Event:PATIENT ALERT AND ORIENTED THIS SHIFT. VSS. TRANSFERS WITH 1 ASSIST, GAIT BELT AND WALKER. HAS BEEN HAVING LOOSE STOOLS TODAY. ORDER FOR CDIFF OBTAINED AND NEW ORDERS FOR ANTIBIOTICS ALSO RECEIVED. IV ANTIBIOTICS WILL BE STOPPED AFTER THIS DOSE COMPLETE. IV PATENT IN LEFT AC. STERI STRIPS IN PLACE ON RIGHT STUMP. TAKES NORCO 2 TABS PO FOR PAIN. WILL REPORT LAST DOSE GIVEN. NO OTHER COMPLAINTS. ID DOC HERE TO SEE PATIENT TODAY WILL SEE AGAIN NEXT WEEK. Follow up:
--- NOTE | 2016-08-03 04:25 | NUR ---
Significant Event: Patient alert and oriented x3. Transferred one assist, pivot. Uses urinal at bedside. Vital signs stable. Constantly picks at skin, some new open areas to arms. Steristrips intact to right stump. 2 tabs norco given x3 for right leg pain. IV to left AC saline locked. C.diff sample negative, only had one small loose stool at beginning of shift. Cooperative with cares Follow up:
--- NOTE | 2016-08-03 13:57 | NUR ---
D: TR progress note for 08/03/16. I: Pt seen for 2 units at 1034 for community integration skills building, functional transfers, cognitive task and safety awareness. R: Pt seen for functional skills building working on endurance, mobility, safety awareness and community skills in anticipation for discharge back into community. Pt taken to [facility] to simulate community environment. Pt propelled WC community distances 400+ feet down hallway, on/off elevators and maneuver around obstacle all SBA > mod I. Pt needed cues for reading signs and locating landmarks for pathfinding skills with fair safety awareness. Pt performed community transfers on/off low/soft couch SBA doing scoot type transfers with cues for WC setup and transferred WC > bed SBA with cues x2 for WC setup. P: Will continue to see to address goals and plan of care.
--- NOTE | 2016-08-03 14:34 | NUR ---
Significant Event:Pt had shower dress per OT this am. Dressing applied after shower, and nicotine patch left upper arm. Takes antibiotics per oral. Uses urinal @ bedside, no BM @ this time today. Pt request [place] 2 tabes PRN, explained to pt watch with Tylenol mg, and encouraged pt when has decreased activity to try 1 tab. Steri strips loose but intact on right stump. No drainage noted from either incision site. Pt alert and orientated, but continues to have some difficulty with short term memory, needs reinforcement. Pt has been pleasant and cooperative with plan of care. Follow up:pain control, monitor for loose stools/c diff reports was neg., IV AC saline lock.
--- NOTE | 2016-08-04 05:33 | NUR ---
Alert and oriented. Calls for assistance as needed. Up to bathroom twice with loose stools. C-diff neg, pt reports its from the antibiotics upsetting his stomach. Takes [place] for pain, with only dose given at 2044 last evening. Slept well tonight. Incision to rt stump healing well with steristrips on but coming loose, and gauze wrap on. Saline lock to left anticubital removed after pt reported it hurting and dsing loose.
[2016-08-04 11:09] LABS: BASOPHIL # 0.1 K/uL (0.0-0.2); BASOPHIL % 0.9 %; EOSINOPHIL # 0.5 K/uL (0.0-0.5); EOSINOPHIL % 3.2 %; HEMATOCRIT 33.8 % (37.0-53.0); HEMOGLOBIN 10.8 g/dL (12.0-17.0); IMMATURE GRANULOCYTE # 0.1 K/uL (0.0-0.3); IMMATURE GRANULOCYTE % 0.3 %; LYMPHOCYTE % 20.7 %; MCH 28.1 pg (27.0-34.0); MONOCYTE # 1.5 K/uL (0.0-1.0); MONOCYTE % 10.2 %; MPV 9.7 fl (9.4-12.4); NEUTROPHIL # (ANC) 9.3 K/uL (1.4-9.0); NEUTROPHIL % 64.7 %; NRBC % 0 /100WBC (0-0.00); PLATELET COUNT 491 K/uL (150-450); RBC 3.84 M/uL (4.00-6.00); RDW-CV 13.9 % (11.9-14.6); WBC 14.4 K/uL (4.0-11.0)
[2016-08-04 11:23] LABS: ANION GAP 12.2 (10.0-19.0); BLOOD UREA NITROGEN 17 mg/dL (6-24); CALCIUM 9.3 mg/dL (8.5-10.5); CHLORIDE 99 mMol/L (96-110); CO2 30 mMol/L (22-32); CREATININE 0.8 mg/dL (0.6-1.3); ESTIMATED GFR (MDRD EQUATION) > 60; POTASSIUM 4.2 mMol/L (3.7-5.1); SODIUM 137 mMol/L (135-145)
--- NOTE | 2016-08-04 13:20 | NUR ---
Significant Event: PATIENT UP 1 ASSIST, SCOOT TRANSFER. INCISION TO RIGHT STUMP INTACT, STUMP RESEARCH ADMINISTRATOR ON. VITALS STABLE ON ROOM AIR. ALERT AND ORIENED X3. COOPERATIVE. CONTINENT OF BOWEL AND BLADDER. NO MORE LOOSE STOOLS TODAY. NORCO FOR PAIN. MRI TODAY FOR POSSIBLE OSTEOMYELITIS, NO RESULTS BACK YET. IV TO RIGHT AC WITH GOOD BLOOD RETURN. STILL WAITING ON PLACEMENT. Follow up:
--- NOTE | 2016-08-05 04:18 | NUR ---
A/O x 3. Pleasant. Cooperative. Watched TV all evening. 100% HS snack eaten. IV antibiotics infusing without difficulty to RAC H.L. Awake at 0415 this morning c/o pain to L stump. Pain med given. Continent of B/B. Urinal used at HS.
[2016-08-05 05:30] LABS: HEMATOCRIT 33.8 % (37.0-53.0); HEMOGLOBIN 10.5 g/dL (12.0-17.0); MCH 27.9 pg (27.0-34.0); MCHC 31.1 gm/dL (32.0-36.5); MCV 89.9 fl (83.0-98.0); MPV 9.7 fl (9.4-12.4); RBC 3.76 M/uL (4.00-6.00); RDW-CV 14.1 % (11.9-14.6); WBC 11.9 K/uL (4.0-11.0)
--- NOTE | 2016-08-05 11:21 | NUR ---
A-NUTRITION F/U 08/04-MRI SHOWS OSTEOMYELITIS LOOSE STOOLS IMPROVING; C-DIFF (-) INCISION TO R)STUMP HEALING WELL; STERISTRIPS ON WT: 64.9 KG; STABLE LABS: NA 137, K+ 4.2, GLU 108, BUN 17, HONING MACHINE OPERATOR TOOL 0.8 MEDS: MAXIPIME, VANCO DIET RX: REGULAR W/ENSURE ENLIVE BID. PO INTAKE HAS BEEN 75-100% SINCE LAST F/U EST NUTR NEEDS: 4621-3175 KCALS AND 78-98 GM PROTEIN D-AT NUTRITION RISK W/INCREASED PROTEIN NEEDS R/T HEALING AEB R)BKA AND PU BEHIND R)KNEE I-CONTINUE W/ENSURE ENLIVE BID M/E-GOAL: PO INTAKE >/=75% FOR DURATION OF ADMIT 1)F/U PO INTAKE, SUPPLEMENT, SKIN, LABS, WT, AND POC IN 3-5 DAYS 2)ASSIST NEEDED
[2016-08-05 11:46] LABS: CREATININE 0.8 mg/dL (0.6-1.3); ESTIMATED GFR (MDRD EQUATION) > 60
--- NOTE | 2016-08-05 15:13 | NUR ---
Significant Event: ALERT AND ORIENTED X3. COOPERATIVE WITH CARES. WAS WILLING TO WEAR HIS STUMP SALVAGE DIVER AND STUMP GUARD FOR MOST OF THE DAY. DR. CORTES WILL COME SEE THE PATIENT SOMETIME SOON DUE TO THE POSSIBLE OSTEOMYELTIS TO RIGHT STUMP SITE. IV TO RIGHT AC INTACT WITH GOOD BLOOD RETURN, RECEIVING CEFEPIME AND VANCO. PATIENT UP 1 ASSIST SCOOT TRANSFER. CONTINENT OF BOWEL AND BLADDER. NORCO PRN FOR PAIN. VITALS STABLE ON ROOM AIR. CALLS APPROPRIATELY. Follow up:
[2016-08-06 04:52] LABS: CREATININE 0.7 mg/dL (0.6-1.3); ESTIMATED GFR (MDRD EQUATION) > 60
--- NOTE | 2016-08-06 05:09 | NUR ---
Significant Event: PATIENT SLEEPS MOST OF NIGHT ONLY UP TO USE THE URINAL. AWAKE WHEN HIS ABX WAS STARTED AT 0430 AND REQUESTED SOME PAIN MED. NORCO 2 TABS GIVEN AT 0430. MAXIPIME STARTED AT 0430. TROUGH WAS DRAWN PRIOR TO HIS VANCO INFUSION. VANCO STARTED AT 0525. Follow up:
--- NOTE | 2016-08-06 15:50 | NUR ---
Significant Event: PATIENT UP 1 ASSIST SLIDE TRANSFER, WHEELS HIMSELF IN THE WHEELCHAIR WELL. STUMP OPEN TO AIR WITH STERI STRIPS. REFUSES STUMP SHOWROOM MANAGER AND STUMP GUARD AT TIMES. IV TO RIGHT AC. ANTIBIOTICS ADMINISTERED. NORCO FOR PAIN PRN. FEEDS SELF WELL. CONTINENT OF BOWEL AND BLADDER. VITALS STABLE ON ROOM AIR. ORIENTED X3. Follow up:
--- NOTE | 2016-08-07 03:12 | NUR ---
Significant Event:PT AAO X3.SHORT WITH STAFF.YELLS AT NURSE WHEN STARTING A NEW IV SITE. IV TO RIGHT AC INFILTRATED SO WAS PULLED AND NEW SITE STARTED TO RIGHT HAND.2 TABS NORCO GIVEN AT HS PER PT REQUEST. HAS BEEN SLEEPING WELL SINCE THEN. CONTINUES TO GET IV ANTBIOTICS. ID WILL SEE HIM WED TO DISCUSS PLAN FOR FURTHER IV ANTIBIOTIC AND PICC LINE PLACEMENT IF NEEDED?? PT USES BEDSIDE URINAL AT NIGHT. TRANFERS SELF FROM WHEELCHAIR TO BED. USES CALL LIGHT APPROP. Follow up:
[2016-08-07 05:48] LABS: HEMATOCRIT 33.1 % (37.0-53.0); HEMOGLOBIN 10.4 g/dL (12.0-17.0); MCHC 31.4 gm/dL (32.0-36.5); MCV 89.2 fl (83.0-98.0); MPV 9.5 fl (9.4-12.4); RBC 3.71 M/uL (4.00-6.00); RDW-CV 14.3 % (11.9-14.6); WBC 11.9 K/uL (4.0-11.0)
[2016-08-07 07:19] LABS: CREATININE 0.8 mg/dL (0.6-1.3)
[2016-08-07 07:20] LABS: ESTIMATED GFR (MDRD EQUATION) > 60
--- NOTE | 2016-08-07 11:31 | NUR ---
Significant Event:pT AWAKE DURING ROUNDS, STARTED AM CARES. pT ALERT AND ORIENTATED X 3, REMAINS FORGETFUL, IE CANNOT REMEMBER IF DRESSINGS ARE TO BE ON OR OFF WHEN ASKED. PT EXPRESSES NEEDS WELL, REQUESTS PAIN MEDS NEEDED. SL RIGHT HAND FOR ANTIBIOTICS, LAST DOSE THIS SHIFT 1700 X 2. PT TRANSFERS SELF WELL WITH STAND BY ASSIST AND SET UP WHEEL CHAIR. HAS REFUSED STUMP BLANK DRILLER THIS AM, DID OFFER TO PUT ON. NORCO FOR PAIN MEDS PRN. CONTINENT BOWEL AND BLADDER. PT HAS BEEN PLEASANT AND COOPERATIVE WITH PLAN OF CARE. Follow up:PAIN CONTROL, ANTIBIOTICS, NEXT VANCO TROUGH AUGUST FIRST.
--- NOTE | 2016-08-07 14:03 | NUR ---
D: TR progress note for 08/07/16. I: Pt seen for 2 units for 1230 leisure education, mobility and coping skills. R: Pt seen for functional skills building working on cognitive thinking skills task, mobility, BUE fine motor skills and pain/stress management using new card game "speed" to increase independence in all task. Pt completed card game SBA once initial instructions completed with verbal cues x3 for game's strategy. Pt utilized BUE to manage and maneuver cards with good coordination and fine motor skills and completed sequencing task independent. Education continued on use of leisure post discharge for coping and to promote recovery along with options to be completed in room for pain/stress management. P: Will continue to see to address goals and plan of care.
--- NOTE | 2016-08-08 04:48 | NUR ---
A/O x 3. Cooperative. R hand IV H.L. flushes well. R-BKA dressing removed by patient. New dressing applied. Wears glasses. Continent of bladder using urinal. Incontinent of 1 stool tonight around 0300 this morning. Stump incision scabbed, no drainage, approximated. Surrounding tissue pinkish red and slightly warm to touch. Medicated for pain at HS and again at 0300. Rested poorly.
[2016-08-08 05:26] LABS: CREATININE 0.8 mg/dL (0.6-1.3); ESTIMATED GFR (MDRD EQUATION) > 60
--- NOTE | 2016-08-08 11:23 | NUR ---
A-NUTRITION F/U CBW: 66.6 KG; UP FROM LAST WT OF 64.9 KG. (+)BM STUMP INCISION IS SCABBED; NO DRAINAGE LABS: 08/07-CRP 1.82; THIS IS DOWN FROM 13.20 08/08-SALES AGENT FOOD VENDING SERVICE 0.8 DIET RX: REGULAR W/ENSURE ENLIVE BID. PO INTAKE IS 75-100% EST NUTR NEEDS: 7901-8444 KCALS AND 78-98 GM PROTEIN D-AT NUTRITION RISK W/INCREASED PROTEIN NEEDS R/T HEALING AEB R)BKA I-CONTINUE W/ENSURE ENLIVE BID M/E-GOAL: PO INTAKE >/=75% FOR DURATION OF ADMIT 1)F/U PO INTAKE, SUPPLEMENT, WT, LABS, SKIN, AND POC IN 6-8 DAYS 2)ASSIST NEEDED
--- NOTE | 2016-08-08 13:38 | NUR ---
Significant Event: Pt up in room with 1 assist, transfer to w/cJazzmine Caban. fair. Stump accountant supervisor and guard on after shower this am. [place] barrier removed from rt stump prior to shower this am, left open to air. Dressing to left foot changed. IV SL rt hand. Remains on ATX. Note left on chart r/t possible PICC line placement if penitentiary ATX needed. Vanco trough August 09 at 1700 dose. [place] at 0906. Miralax held this am r/t loose, inc. stool during the noc. Multiple scabs all over, pt picks at skin. Follow up: ATX, pain management, activity, safety, Monitor skin
--- NOTE | 2016-08-08 16:33 | NUR ---
D: TR progress note for 08/08/16. I: Pt seen for 2 units for 1400 leisure education, cognitive thinking task, fine motor skills, coping skills and mobility. R: Pt seen for functional skills building working on cognitive thinking skills, recall, BUE coordination and fine motor skills using new card game "golf" to increase independent with leisure task and promote recovery. Pt able to complete game SBA > mod independent using visual cues aide to assist with identification of point system. Pt utilized BUE to manage and maneuver cards independently with good coordination and could complete simple math task in head without difficulty but did demonstrate problems with recall on placement of cards. Education continued on utilization of leisure to promote recovery. Pt propelled WC SBA to/from session 208 feet with cues for navigation on path finding. P: Will continue to see to address goals and plan of care.
--- NOTE | 2016-08-09 04:43 | NUR ---
Alert and oriented. Cooperatiave with cares. On IV antibiotics with Vanc trough to be drawn tonight at 0500. Takes two [place] for pain, last given at 2330. Gauze wrap to rt stump per pt request to avoid picking at scab. [place] dressing to back of rt knee from brace rubbing. Serum creatinine this am
[2016-08-09 06:19] LABS: CREATININE 0.8 mg/dL (0.6-1.3); ESTIMATED GFR (MDRD EQUATION) > 60
--- NOTE | 2016-08-09 11:58 | NUR ---
D: TR progress note for 08/09/16. I: Pt seen for 2 units at 1100 in group session for education on safety when around pets/animals, group participation, and leisure education. R: Pt seen for functional skills building working on fine motor skills, scanning, safety awareness and functional social communication in anticipation for discharge back into community/home where animals will be present. Pt independent with personal introduction of self, hometown and sharing with group about past pet dog. Pt SBA when handling and maneuvering animals during Animal Assisted Therapy utilizing BUE with good safety awareness. Education done on safety with ambulation/mobility in homes when around animals, safety with possibility of poor skin integrity and utilizing pets to assist with coping and stress/pain management when opportunity available. Pt mod I with mobility to session. P: Will continue to see to address goals and plan of care.
--- NOTE | 2016-08-09 16:08 | NUR ---
Significant Event:PATIENT ALERT AND ORIENTED THIS SHIFT. VSS. TRANSFERS WITH 1 ASSIST, GAIT BELT PIVOT TRANSFER. GIVEN NORCO 2 TABS PO AT 0826. IV IN RIGHT WRIST/HAND WAS VERY PAINFUL THIS AM AND WHEN ATTEMPTED TO FLUSH IV SITE HE COMPLAINED OF SEVERE PAIN. MEW IF STARTED IN LEFT FOREARM WITH 22G. TOLERATED WELL AND ANTIBIOTIC INFUSED WITHOUT DIFFICULTY. ID DOC HERE TO SEE PATIENT THIS AFTERNOON AND IV ANTIBIOTICS DC'D. NO OTHER NEW ORDERS. BROTHER HERE TO VISIT THIS AFTERNOON. NO OTHER COMPLAINTS. Follow up:
--- NOTE | 2016-08-10 04:11 | NUR ---
A/O x 3. Cooperative. Refused to wear ampushield brace. Drsg on L stump d/i. Drsg on R foot d/i. Medicated for pain x 2 in last 12 hrs. Continent of B/B. Urinal used at HS. 1 assist stand pivot or slide to w/c. Rested fair.
[2016-08-10 06:05] LABS: CREATININE 0.7 mg/dL (0.6-1.3); ESTIMATED GFR (MDRD EQUATION) > 60
--- NOTE | 2016-08-10 13:53 | NUR ---
D: Aerotriangulation Specialist Team Conference Follow up for 08/08/16 I: Input from patient/family R: Met with: patient, Dr. Rojas, Mary Driver SAVE ALL OPERATOR Discussed rehab plan, patient progress, discharge plan and estimated length of stay of d/c planned as soon as able. Patient/Family Preference: patient is in agreement with this plan. Anticipated discharge disposition: unknown. Education completed: Education was completed with patient regarding length of stay, progress in therapy and d/c plan. Assessment/Recommendation: Team recommends d/c soon. P: Case Coordination: Unsure about d/c plan at this time. Patient's home is not inhabitable for patient to return there. Patient does not have any income coming in, but is applying for disability and medicaid. Patient's mom lives in a SNF in [place], but center will not take patient due to patient and mother's relationship. They feel this would be too stressful for his mom. Patient does have some cognitive issues that we do not know how long he has had. Will follow and assist with d/c planning as able.
--- NOTE | 2016-08-10 14:38 | NUR ---
Significant Event:PATIENT ALERT AND ORIENTED THIS SHIFT. VSS TRANSFERS WITH 1 ASSIST, GAIT BELT AND PIVOT TRANSFER. TAKES NORCO FOR PAIN. LAST DOSE GIVEN AT 0925 OF 2 TABS PO. SALINE LOCK IN LEFT FOREARM INTACT. RESTS IN BED OR WHEELCHAIR BETWEEN THERAPY. INCISIONS HEALING WELL. NO OTHER COMPLAINTS. Follow up:
--- NOTE | 2016-08-11 03:59 | NUR ---
A/O x 3. Cooperative. H.L. Drsg on R stump. Drsg on L foot. Rested well. Medicated for pain at HS. Continent of B/B. Urinal used at HS. Refused HS snack. To bed at 2130
[2016-08-11 05:44] LABS: CREATININE 0.8 mg/dL (0.6-1.3); ESTIMATED GFR (MDRD EQUATION) > 60
--- NOTE | 2016-08-11 13:59 | NUR ---
Significant Event: Patient is alert/oriented X 3. Forgetful at times. No pain pills given at this time, will offer again this afternoon. Incisions are healed, does have gauze and kerlix on some places to protect incisions. Patient has been working with therapy. Did come to dining room for lunch. Stopped his nystatin cream as after 7 to 10 days it is ineffective. Discontinued his peripheral IV since no longer has any running IV fluids or IV antibiotics. Patient is in good spirits today. Voids per urinal. 1A pivot transfer. Follow up:
--- NOTE | 2016-08-12 04:18 | NUR ---
Significant Event: Patient alert and oriented. Transfers 1A scoot. Took 2 [place] with nightimes pills. Dressing to R) stump changed due to falling off when changing clothes. Voids per urinal. Cooperative with cares and uses call light appropriately. Follow up:
[2016-08-12 05:28] LABS: CREATININE 0.7 mg/dL (0.6-1.3); ESTIMATED GFR (MDRD EQUATION) > 60
--- NOTE | 2016-08-12 14:41 | NUR ---
Significant Event:PATIENT ALERT AND ORIENTED THIS SHIFT. VSS. TRANSFERS WITH 1 ASSIST, GAIT BELT AND PIVOT/SCOOT TRANSFER. TAKES NORCO FOR PAIN. GIVEN 2 TABS PO AT 1355 FOR PAIN OF A 7. INCISIONS WRAPPED WITH GAUZE FOR PROTECTION. SITS IN WHEELCHAIR OCCASIONALLY AND SITS ON EDGE OF BED WHEN NOT IN CHAIR. NO OTHER COMPLAINTS. Follow up:
--- NOTE | 2016-08-13 04:39 | NUR ---
Significant Event: Patient alert and oriented. Transfers 1A GB/Scoot. VSS. Last [place] given at 0415, with pain rated at a 7. Encourage use of pillow to elevate stump. Incisions covered with gauze wrap. Sitting on edge of the bed for the most of the evening. Voids per urinal. Using incetive spirometer. Cooperative with cares. Follow up:
[2016-08-13 05:29] LABS: CREATININE 0.7 mg/dL (0.6-1.3); ESTIMATED GFR (MDRD EQUATION) > 60
--- NOTE | 2016-08-13 14:22 | NUR ---
Significant Event: Alert and oriented x 3. Up with 1A pivot transfer. Two norco given at 1325. Lungs sounds wheezy in the back. Encouraged use of incentive spirometer. Gauze to left foot and right stump. Garde Manager on. Voids per urinal. Cooperative with cares. Follow up:
--- NOTE | 2016-08-14 03:35 | NUR ---
A/O x 3. Cooperative. Rested well tonight. Medicated for pain at HS. Continent of B/B. Tolerated dinner well. [facility] brace on. Patient removed brace at HS and refused to wear.
[2016-08-14 05:55] LABS: CREATININE 0.7 mg/dL (0.6-1.3); ESTIMATED GFR (MDRD EQUATION) > 60
--- NOTE | 2016-08-14 11:58 | NUR ---
A-NUTRITION F/U GAUZE TO L)FOOT AND R)STUMP FOR PROTECTION; PRICE ACCURACY SUPERVISOR ON CBW 66.7 KG; WT STABLE NO NEW LABS NO NEW MEDS DIET RX: REGULAR W/ENSURE ENLIVE TID. PO INTAKE 75-100% EST NUTR NEEDS: [id number] KCALS AND 78-98 GM PROTEIN D-NOT AT NUTRITION RISK; NO NUTRITION DX IDENTIFIED I-CONTINUE W/ENSURE ENLIVE TID TO MAINTAIN NUTRITION STATUS M/E-WILL ASSIST NEEEDED
--- NOTE | 2016-08-14 14:35 | NUR ---
Significant Event: PATIENT UP 1 ASSIST, SLIDE TRANSFER. ALERT AND ORIENTED X3. VITALS STABLE ON ROOM AIR. STUMP PROTECTOR ON. LEFT FOOT WRAPPED WITH GAUZE. NORCO FOR PAIN PRN. TOLERATES ACTIVITY WELL. CONTINENT OF BOWEL AND BLADDER. WAITING FOR PLACEMENT. Follow up:
--- NOTE | 2016-08-15 03:07 | NUR ---
Significant Event: Patient alert and oriented x3. Has been sleeping on and off all night. Gauze wraps dry and intact to right stump and left foot. Allev[place] dry and intact to right posterior knee. Vitals stable on room air. 2tabs norco given x2 for left foot pain. Voided per urinal. Pleasant/cooperative with cares Follow up:
[2016-08-15 05:49] LABS: CREATININE 0.8 mg/dL (0.6-1.3); ESTIMATED GFR (MDRD EQUATION) > 60
--- NOTE | 2016-08-15 11:28 | NUR ---
Significant Event: Patient alert and oriented. Up with 1 assist pivot transfer to wheelchair. Right below the keee amputee. Has scabbed areas to upper and lower extremities. Follow up:
--- NOTE | 2016-08-15 16:00 | NUR ---
D: TR progress note for 08/15/13. I: Pt seen for 2 units at 1405 for community integration skills building, functional transfers, and safety awareness. R: Pt seen for functional skills building working on mobility, safety, awareness and functional transfers to increase independence in anticipation for discharge back into community. Pt transferred from WC to/from vehicle SBA doing scoot type transfers with cues for setup as unable to recall proper technique to manage WC setup. Pt was SBA for BLE management and positioning of self with seat surface adapted using trash bag to ease task and BKA supported with cushion. Pt tolerated ride with no C/o pain or discomfort. P: Will continue to see to address goals and plan of care.
--- NOTE | 2016-08-16 04:12 | NUR ---
Significant Event: Moves with one assist pivot transfer; although pt did return to his bed on his own. Drsg to rt stump dry/intact, refuses data steward or ampushield. Alleyvn drsg to posterior rt knee loose, changed. Has small scab to area and small oval shaped open area with cream/light pale yellow hue. Old drainage on old drsg, no new. Drsg removed from left foot, skin dry with incisional area scabbed/dried. [place] cream applied to legs, foot, and arms due to dryness. [place] 2 tabs given twice, last dose at 0008--rates pain to rt stump at 6. Last bm on 7th, Intake 780 ml, output 1350 ml.Voids per urinal, clear yellow urine. No temp. Follow up:Insurance Writer to return on with prosthetic leg. Safety with transfers.
[2016-08-16 06:17] LABS: CREATININE 0.8 mg/dL (0.6-1.3); ESTIMATED GFR (MDRD EQUATION) > 60
--- NOTE | 2016-08-16 11:45 | NUR ---
D: TR progress note for 08/16/16. I: Pt seen for 2 units 1030 for leisure education, coping strategies, and pain/stress management techniques. R: Pt seen in room for functional skills building working on decision making, leisure participation, pain/stress management and coping strategies to increase independence with all task and promote recovery. Pt started on new leisure task doing reasoning and decision making doing card activity. Pt needed setup and min > SBA at start of session demonstrating fair > good fine motor skills with fair > good understanding of game's concept and strategy. Pt by end of session was SBA > occasional cues. Education and reviewed done on pain/stress management techniques, coping skills and discharge planning. P: Will continue to see to address goals and plan of care.
--- NOTE | 2016-08-16 13:43 | NUR ---
Significant Event: PATIENT UP 1 ASSIST, SLIDE TRANSFER. COOPERATIVE WITH CARES. VITALS STABLE ON ROOM AIR. AFEBRILE. NORCO X1 FOR PAIN TODAY. REFUSES STUMP PROTECTOR AND DARKLIGHT INSPECTOR AT TIMES. ALLEVYN TO SORE ON THE RIGHT STUMP POSTERIOR. GAUZE TO LEFT FOOT. NO IV ACCESS. NICOTINE PATCH TO LEFT ARM. COUGH IS PERSISTENT. Follow up:
--- NOTE | 2016-08-17 04:25 | NUR ---
A/O x 3. Pleasant. Cooperative. Medicated for pain at HS per request. OOB in W/C until 0240am watching TV-when asked if he was ready to go to bed earlier at 0030 he refused wanting to watch a movie. Continent using urinal. Persistant dry cough tonight. Refused to wear Ampushield tonight. Tolerated his dinner well eating 100%. Rested poorly tonight.
--- NOTE | 2016-08-17 09:33 | NUR ---
D: Electrical Accessories Ii Assembler Team Conference Follow up for 08/15/16 I: Input from patient/family R: Met with: patient, Dr. Rojas, Mary Driver GENERAL OPHTHALMOLOGIST Discussed rehab plan, patient progress, discharge plan and estimated length of stay of d/c planned as soon as something can be arranged. Patient/Family Preference: patient is in agreement. Anticipated discharge disposition: unknown. Working on d/c options. Education completed: Education was completed with patient regarding length of stay, progress in therapy and d/c plan. Assessment/Recommendation: Team recommends d/c as soon as it can be arranged. 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 He has limited family support. Continue to work on d/c options for him. [place] [facility] and [facility] [facility] have said no. Getting application for [facility] housing in [place]. Also, checking into homeless shelters. Will follow and assist as needed.
--- NOTE | 2016-08-17 14:31 | NUR ---
Significant Event: Alert and oriented x 3. Up with 1A scoot transfer. [place] given at 1442. Uses urinal. Continent of bowel and urine. [employer] Rolls and ampushield on this shift. Uses call light appropriately. Cooperative with cares. Follow up:
--- NOTE | 2016-08-18 02:14 | NUR ---
Significant Event: Patient is alert and oriented x 3. VSS. Up 1 assist pivot transfer. Noted 3+ edema to his left leg last evening. Patient asked to elevate his leg, refuses states its alright. Incision to his left foot and right stump opened to air. Wore his stump party plan salesperson and ampushield yesterday thinking Or Manager will be here to fit him with his prosthesis. They never showed up. Is short with nursing at times not wanting to be bothered. Follow up:
--- NOTE | 2016-08-18 13:01 | NUR ---
D: TR progress note for 08/18/16. I: Pt seen for 2 units at 1231 for cognitive task, fine motor skills, sequencing, coping strategies and pain/stress management. R: Pt seen for functional skills building working on sequencing, attention to task, cognition task, motor skills, and coordination using playing cards to promote recovery and independence with all task. Pt completed card game 'King Yin mayen' with min > occasional cues for game's strategy along with visual cue aide to recall game's rules. Pt demonstrated fair > good motor skills utilizing BUE with fair > good ROM and good sequencing with no problems on attention to task. Education continued on utilization of leisure to promote recovery and for coping with pain/stress. P: Will continue to see to address goals and plan of care.
--- NOTE | 2016-08-18 16:10 | NUR ---
Significant Event:PATIENT ALERT AND ORIENTED THIS SHIFT. VSS. TRANSFERS WITH 1 ASSIST, GAIT BELT SCOOT TRANSFER. INCISIONS CONTINUE TO HEAL AND REMAIN SCABBED. NO DRAINAGE NOTED. A CIGARETTE AND ALTERATION HAND WAS FOUND UNDER HIS BED TODAY AND ALTERATION HAND WAS PLACED IN HIS MED BOX FOR SAFETY. INSTRUCTED ON THE MEDICAL PROBLEMS WITH HAVING A NICOTINE PATCH AND SMOKING AT THE SAME TIME. DIDN'T SEEM TO BOTHER HIM MUCH. WILL HAVE TO MONITOR WHEN HE GOES OUTSIDE. COMPLAINTS OF PAIN IN THE RIGHT STUMP AT TIMES. GIVEN NORCO 2 TABS PO THIS AFTERNOON AT 1222. UP IN WHEELCHAIR BETWEEN THERAPIES. NO OTHER COMPLAINTS. Follow up:
--- NOTE | 2016-08-19 04:54 | NUR ---
Patient alert and oriented. Transfers 1A scoot, stand by assist. Wanted to wear carbonizer tester throughout the night, incisions open to air and healing well. 2 [place] last given at 0445. VSS. Cooperative with cares. Was passed on that cigarette and tool grinder were found underneath the matress and that the tool grinder is in the med box, and was informed the risks with smoking while on nicotine patch.
--- NOTE | 2016-08-19 14:46 | NUR ---
AAOx3. Cooperative with cares. Up to w/c w/assist, though sometimes doesn't call. Transfers well from bed to chair and chair to toilet and back. BM today. Voids in urinal also. Tolerating regular diet well. No PRN meds given. No IV access. Allevyn dressing to back of right knee. R)stump scabbed, well approximated, slightly reddened. VSS, afebrile, on RA. Denies nausea, vomiting, diarrhea and pain.
--- NOTE | 2016-08-20 04:44 | NUR ---
Patient alert and oriented. Transfers SBA scoot. Doesnt always call and doesnt respond when being reminded to call for assistance. Uses urinal. 2 [place] given at 0345. Incisons scabbed and slightly red. VSS.
--- NOTE | 2016-08-20 11:38 | NUR ---
Significant Event: PATIENT IS ALERT/ORIENTED X 3. COOPERATIVE WITH CARES MOST OF THE TIME. NOT COMPLIANT WITH AMPUSHIELD. INCISIONS ALL OPEN TO AIR. PATIENT PICKS AT ALL SCABS, NONE ARE HEALING WELL. TOOK 2 NORCO AT 1020 FOR PAIN IN THE STUMP. DID ASK ZEKE WITH PT ABOUT TRANSFERS. SHE SAID THAT SHE WOULD TALK TO MIKE THIS AFTERNOON OR TOMORROW REGARDING IF PATIENT ABLE TO POTENTIALLY BE MOD I WITH TRANSFERS. WILL WAIT TO SEE WHAT IS FOUND OUT REGARDING THAT. PATIENT HAS HAD SOME COMPANY BUT NOT GONE OUTSIDE. NEED TO WATCH FOR NEW LIGHTERS TO BE BROUGHT IN FROM FAMILY IN CASE PATIENT TRIES TO SMOKE AGAIN. Follow up:
--- NOTE | 2016-08-21 04:48 | NUR ---
Patient alert and oriented. Transfers SBA scoot. Has not been compliant with ampushield. Last 2 [place] at 2150. Patient was in bed early and stated that he was tired. Uses urinal at bedside. Incisions scabbed and slightly red, open to air. Picks at scabs on arms which is delying the healing process. VSS. Needs reminding to call for help when transfering. Physical therapy was talked to about making patient Mod- I in room, but no changes yet.
[2016-08-21 06:51] LABS: BASOPHIL # 0.1 K/uL (0.0-0.2); BASOPHIL % 1.1 %; EOSINOPHIL # 0.5 K/uL (0.0-0.5); EOSINOPHIL % 4.3 %; HEMATOCRIT 34.6 % (37.0-53.0); IMMATURE GRANULOCYTE % 0.3 %; LYMPHOCYTE # 2.4 K/uL (0.8-4.0); LYMPHOCYTE % 20.8 %; MCH 27.7 pg (27.0-34.0); MCHC 31.8 gm/dL (32.0-36.5); MCV 87.2 fl (83.0-98.0); MONOCYTE # 1.5 K/uL (0.0-1.0); MONOCYTE % 13.6 %; NEUTROPHIL # (ANC) 6.8 K/uL (1.4-9.0); NEUTROPHIL % 59.9 %; NRBC % 0 /100WBC (0-0.00); PLATELET COUNT 386 K/uL (150-450); RBC 3.97 M/uL (4.00-6.00); RDW-CV 14.8 % (11.9-14.6); WBC 11.3 K/uL (4.0-11.0)
[2016-08-21 07:18] LABS: ALBUMIN 2.9 gm/dL (3.5-5.0); ALK PHOS 113 IU/L (33-138); ALT 17 IU/L (12-78); ANION GAP 11.1 (10.0-19.0); AST 22 IU/L (10-40); BLOOD UREA NITROGEN 17 mg/dL (6-24); CALCIUM 9.5 mg/dL (8.5-10.5); CHLORIDE 101 mMol/L (96-110); CO2 30 mMol/L (22-32); CREATININE 0.8 mg/dL (0.6-1.3); ESTIMATED GFR (MDRD EQUATION) > 60; POTASSIUM 4.1 mMol/L (3.7-5.1); SODIUM 138 mMol/L (135-145); TOTAL BILIRUBIN 0.2 mg/dL (0.0-1.5); TOTAL PROTEIN 7.9 g/dL (6.0-8.4)
[2016-08-21 09:38] LABS: BILIRUBIN URINE NEGATIVE (NEGATIVE); BLOOD URINE NEGATIVE /UL (NEGATIVE); COLOR URINE YELLOW (YELLOW); GLUCOSE URINE NEGATIVE (NEGATIVE); KETONE URINE NEGATIVE (NEGATIVE); LEUKOCYTES URINE NEGATIVE /UL (NEGATIVE); NITRITE URINE NEGATIVE (NEGATIVE); PROTEIN URINE NEGATIVE (NEGATIVE); TURBIDITY URINE CLEAR (CLEAR); UROBILINOGEN URINE NORMAL (NORMAL)
--- NOTE | 2016-08-21 15:47 | NUR ---
Significant Event:PATIENT ALERT AND ORIENTED THIS SHIFT. VSS. BUT HAD AN ELEVATED TEMP THIS AM AT 100.1. PATIENT STATED HE DIDN'T FEEL WELL. TRANSFERS WITH SBA AND GAIT BELT. TAKES NORCO FOR PAIN. GIVEN 2 TABS LAST AT 1515. TEMP CAME BACK DOWN THIS AM AND WAS 98.4 AT 1150. UA AND CHEST XRAY DONE TO RULE OUT ANY PROBLEMS CAUSING THE TEMP. STUMP CONTINUES HEALING WITH SOME SCABS NOTED AND VERY MILD REDNESS BUT NOTHING NEW FROM LAST WEEK. DOES HAVE SOME SWELLING BUT DOES NOT KEEP EXTREMITY ELEVATED LIKE HE USED TO. NO OTHER COMPLAINTS. Follow up:
--- NOTE | 2016-08-22 04:06 | NUR ---
Significant Event: alert and oriented x3. Afebrile. New allevyn applied to right posterior knee and no changes to right stump incision healing with mild redness. Had to remind patient to get back into bed to elevate his leg, as is edematous, as he was going to sleep in his wheelchair. He seemed upset he could not transfer back to bed by self. Voided per urinal. [place] given x2. Follow up:
--- NOTE | 2016-08-22 14:10 | NUR ---
D: TR progress note for 08/22/16. I: Pt seen for 2 units at 1230 for cognitive task, sequencing, coping strategies, pain/stress management and mobility. R: Pt seen for functional skills building working on sequencing, attention to task, cognition task, motor skills, and coordination using playing cards to promote recovery and independence with all task. Pt propelled WC 140 feet x2 with cues for pathfinding. Pt asked to recall card game 'King Yin mayen' needing to review rules and occasional cues for game's strategy. Pt demonstrated good motor skills utilizing BUE with good ROM and good sequencing. Education continued on utilization of leisure to promote recovery and for coping with pain/stress which pt verbalized not thinking of during session. P: Will continue to see to address goals and plan of care.
--- NOTE | 2016-08-22 17:28 | NUR ---
Significant Event:PATIENT ALERT AND ORIENTED THIS SHIFT. VSS. TRANSFERS WITH SBA GAIT BELT AND WALKER. TAKES NORCO 2 TABS FOR PAIN. UP IN WHEELCHAIR MOST OF THE DAY EVEN BETWEEN THERAPIES. WORE AMPUSHIELD SOME TODAY. WAS EXCITED ABOUT WALKING 40FT WITH HIS PROSTHESIS TODAY IN THERAPY. LAST NORCO WAS GIVEN AT 1518 FOR PAIN. NO OTHER COMPLAINTS. Follow up:
--- NOTE | 2016-08-23 04:46 | NUR ---
A/O x 3. Pleasant. Cooperative. Watching TV until 0030. [place] on. Continent of B/B. Urinal used at HS. 1-assist slide to w/c. Medicated for pain at HS and again at 0200. Rested well.
--- NOTE | 2016-08-23 15:03 | NUR ---
Physical therapy reported that they had noted yuko patients left leg was swollen, pink and shiney. Upon assessment of patients left leg, leg was noted to have increased edema from assessment this morning. Encouraged patient to elevate leg, and he refused to lay in bed or sit in recliner. Patient asked if he would be willing to elevate leg some on a kristan, he agreed. Pt upset that physical therapy did not address his leg with him. Pt asked if his leg was infected. Ice applied to leg for swelling, pt denies pain in leg.
--- NOTE | 2016-08-23 15:59 | NUR ---
Significant Event: Pt up to w/c and toilet with 1 assist, pivot transfer, juvenal. well. Stump clay artist and guard on t/o day. Pt able to amb with P.T. with prosthesis on. P.T. noted this afternoon that pt's LLE had increase in swelling, tight, shiny skin. Pt denied any calf pain at this time. Leg elevated on chair, ice applied. Pt did refused to lay down with leg elevated or in recliner. Dr Warren made aware of swelling upon rounds and he assessed LLE, venous duplex ordered to R/O DVT, order was obtained at 1600. Left foot amputation site at toes is scabbed over. Multiple scabs all over, pt picking at scabs to upper and lower ext. Alevyn dressing behine rt knee. 2 norco at 1143, 1 norco tab this afternoon as approaching tylenol max. Follow up: venous duplex to be done, activity, monitor swelling in LLE, conitor skin, reinforce importance of wearing stump protector.
--- NOTE | 2016-08-24 02:04 | NUR ---
Significant Event: Alert & oriented. Pleasant & cooperative. Would not get into bed til about 2 am. I encourged him to several times d/t he was sleeping in w/c. BUt just wouldnt go. He had 1 norco @ 1905, then 2 norco @ 2209. He also had Benedryl. Lt lower extremety noted to be 3+ edematous with tuff shiney skin. Scab intact to lt toes. He left the brace on most of the night. Allevyx behind lt knee. Follow up:
--- NOTE | 2016-08-24 16:39 | NUR ---
Significant Event: Pt reluctantly applied accessories repairer and stump guard this am prior to therapy. Pt refuses to apply at times stating it is too painful. 2 norco given x 2 last at 1540. Pt did not sleep well last noc. LLE edema remains, weaping noted from some of scabs on leg. Peripheral vascular reported preliminary report of venous duplex study done yesterday was negative for DVT. Left foot remains scabbed. Small scabs all over arms and leg. Pt cooperative with cares. Pt reported small BM today Follow up: safety, enc. to leave accessories repairer and stump guard on as much as possible. Pain management
--- NOTE | 2016-08-25 05:22 | NUR ---
Alert and oriented. Cooperative with cares. Asleep by 2400, but awakens freq to void per urinal. May need to limit his pop late in the day, as he had 3 cans late afernoon/evening. Took 2 [place] last at 2215 alone with Benadryl to help sleep. Therapy informed pt that he needs to keep shinker on as much as possible during the day to help decrease discomfort and get used to prosthesis. Left foot and ankle edematous. Encouraged him to keep it elevated more during rest, but he insists on dangling left foot over edge of bed.
--- NOTE | 2016-08-25 12:23 | NUR ---
Significant Event: PATIENT UP 1 ASSIST, SCOOT TRANSFER. TOLERATES ACTIVITY WELL. STUMP BOILERMAKER APPRENTICE TO RIGHT STUMP SITE AND STUMP GUARD ON. NORCO FOR PAIN X2. ALERT AND ORIENTED X3. COOPERATIVE WITH CARES. VITALS STABLE ON ROOM AIR. PAIN TO LEFT FOOT AT TIMES. THERAPY TOLERATED. Follow up:
--- NOTE | 2016-08-25 14:11 | NUR ---
D: Supervisor Shipping Room Team Conference Follow up for 08/22/16 I: Input from patient/family R: Met with: patient, Dr. Rojas, Mary Driver ORGANIZATIONAL DEVELOPMENT MANAGER Discussed rehab plan, patient progress, discharge plan and estimated length of stay of d/c planned as soon as something can be arranged. Patient/Family Preference: Patient voices that he is agreement with plan. Anticipated discharge disposition: unknown. Education completed: Education was completed with patient regarding length of stay, progress in therapy and d/c plan. Patient voices that he does not want to live in an apartment and does not want to live in a senior living. He wants his home fixed up so that he can go home. Assessment/Recommendation: Team recommends d/c as soon as plans can be arranged. 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 He lives alone. Patient has applied for medicaid and disability. Voices that he would not want to live in apartment. Explained that this may be a short term solution to get him in his own place. Will follow and assist as needed.
--- NOTE | 2016-08-26 04:09 | NUR ---
Significant Event:Took self from bed to w/c to toilet, reports moderate amt hard stool. Refuses po med to soften stools. 1500 in, 2200 out.[place] 2 tabs given at 2009 for pain rated at 8 to rt lower leg.Has stump commercial collections driver on, refuses to place brace on. Follow up:Have dr view left foot where toes were removed, has some cream colored dried drainage. Stress safety with transfers.
--- NOTE | 2016-08-26 14:59 | NUR ---
Significant Event: PATIENT UP 1 ASSIST PIVOT. CONTINENT OF BOWEL AND BLADDER. CALLS APPROPRIATELY. STUMP SERVER DEVELOPER ON, STUMP GUARD ON AT TIMES. NORCO FOR PAIN PRN X2 TODAY. VITALS STABLE ON ROOM AIR. LEFT FOOT SITE CRUSTED. SCABS ALL OVER THAT HE PICKS ON. STILL WAITING ON DISCHARGE PLANS. Follow up:
--- NOTE | 2016-08-27 04:01 | NUR ---
Patient alert and oriented. Transfers 1A pivot. Took two norco with HS pills. Voids per urinal at bedside. Table Assembler Metal and stump protector not on. VSS. Cooperative with cares. Slept well throughout the night.
--- NOTE | 2016-08-27 15:01 | NUR ---
Significant Event: PATIENT UP 1 ASSIST, PIVOT TRANSFER. ALERT AND ORIENTED X3. VITALS STABLE ON ROOM AIR. CALLS APPROPRIATELY. VOIDS PER URINAL. CONTINENT OF BOWEL AND BLADDER. NORCO FOR PAIN X2. STUMP GUARD AND MACHINIST CLASS B ON MOST OF THE DAY. ALLEVYN TO POSTERIOR RIGHT KNEE. LEFT FOOT CRUSTED WHERE TOES WERE REMOVED. Follow up:
--- NOTE | 2016-08-28 04:24 | NUR ---
Patient alert and oriented. Transfers 1A pivot. took two norco at 0330 for pain. VSS. voids per urinal. Slept well throughout the night. Did not have baby sitter or stump protector on this evening. Does have [place] to R) posterior knee. L) foot dry and and crusted. Cooperative with cares.
[2016-08-28 05:46] LABS: BASOPHIL # 0.1 K/uL (0.0-0.2); BASOPHIL % 1.2 %; EOSINOPHIL # 0.7 K/uL (0.0-0.5); HEMATOCRIT 35.6 % (37.0-53.0); HEMOGLOBIN 11.1 g/dL (12.0-17.0); IMMATURE GRANULOCYTE % 0.2 %; LYMPHOCYTE # 2.8 K/uL (0.8-4.0); LYMPHOCYTE % 27.1 %; MCH 27.3 pg (27.0-34.0); MCHC 31.2 gm/dL (32.0-36.5); MCV 87.7 fl (83.0-98.0); MONOCYTE # 1.7 K/uL (0.0-1.0); MONOCYTE % 16.5 %; MPV 9.6 fl (9.4-12.4); NEUTROPHIL # (ANC) 4.9 K/uL (1.4-9.0); NRBC % 0 /100WBC (0-0.00); PLATELET COUNT 405 K/uL (150-450); RBC 4.06 M/uL (4.00-6.00); RDW-CV 14.8 % (11.9-14.6); WBC 10.3 K/uL (4.0-11.0)
[2016-08-28 06:11] LABS: ALBUMIN 3.1 gm/dL (3.5-5.0); ALT 25 IU/L (12-78); ANION GAP 12.2 (10.0-19.0); AST 32 IU/L (10-40); BLOOD UREA NITROGEN 23 mg/dL (6-24); CALCIUM 9.6 mg/dL (8.5-10.5); CHLORIDE 102 mMol/L (96-110); CO2 29 mMol/L (22-32); CREATININE 0.8 mg/dL (0.6-1.3); ESTIMATED GFR (MDRD EQUATION) > 60; POTASSIUM 4.2 mMol/L (3.7-5.1); SODIUM 139 mMol/L (135-145); TOTAL BILIRUBIN 0.2 mg/dL (0.0-1.5)
[2016-08-28 06:13] LABS: ALK PHOS 111 IU/L (33-138)
--- NOTE | 2016-08-28 10:04 | NUR ---
A-NUTRITION F/U CBW 70.4 KG; WT UP 3.6 KG X 2 WEEKS LABS: PREALB 26.0; THIS IS UP FROM 22.0 ON 08/21 DIET RX: REGULAR W/ENSURE ENLIVE TID. PO INTAKE 75-100% FOR THE MOST PART. EST NUTR NEEDS: [id number] KCALS AND 78-98 GM PROTEIN D-NOT AT NUTRITION RISK; NO NUTRITION DX IDENTIFIED I-DECREASE ENSURE ENLIVE FROM TID TO QD AT BREAKFAST M/E-WILL ASSIST NEEDED
--- NOTE | 2016-08-28 13:58 | NUR ---
Significant Event: PATIENT IS ALERT/ORIENTED X 3. ENCOURAGED PATIENT TO KEEP LEG ELEVATED TODAY AND HE WAS OKAY WITH THIS. HE HAD A SHOWER WITH OT THIS MORNING, BUT STILL REFUSES TO LET US CHANGE THE SHEETS. DID CHECK UNDER THE MATTRESS JUST IN CASE HE WAS TRYING TO HIDE SOMETHING, BUT DIDN'T FIND ANYTHING. HAS HAD NO COMPLAINTS OF PAIN TO THIS NURSE TODAY. Follow up:
--- NOTE | 2016-08-29 05:24 | NUR ---
Patient alert and oriented. Transfers 1A pivot. Stump protector and right of way buyer on this evening. Last norco given at 0130. Encouraged to elevate stump and L) leg. Was up off and on a lot tonight. [place] to R) posterior knee. Cooperative with cares.
--- NOTE | 2016-08-29 14:34 | NUR ---
D: TR progress note for 08/29/16. I: Pt seen for 2 units 1330 for leisure education, coping strategies, pain/stress management techniques and mobility. R: Pt seen for functional skills building working on decision making, leisure participation, pain/stress management and coping strategies to increase independence with leisure task and cognitive thinking. Pt started on new leisure task doing reasoning and decision making card game. Pt needed setup and min > SBA at start of session demonstrating fair > good fine motor skills with fair understanding of game's concept and strategy. Pt by end of session was SBA > occasional cues with pt have C/o pain at start of session but no complaints during or at end until returning to room with pt than verbalizing pain. Education and reviewed done on pain/stress management techniques and coping skills with pt in agreement. Pt mod I with WC mobility but cues for pathfinding. P: Will continue to see to address goals and plan of care.
--- NOTE | 2016-08-29 17:59 | NUR ---
Significant Event:PATIENT ALERT AND ORIENTED THIS SHIFT. VSS. TRANSFERS WITH SBA AND DOES WELL. CONTINUES TO BE NONCOMPLIANT WITH STUMP KILN LOADER AND AMPUSHIELD. COMPLAINTS OF PAIN IN HIS RIGHT STUMP. GIVEN NORCO 2 TABS PO FOR PAIN. LAST DOSE GIVEN AT 1710. SITS UP IN WHEELCHAIR WHEN NOT IN THERAPY. COMPLAINTS OF HIS CYST ON HIS HAND BOTHERING HIM. PA HERE AND HE TALKED WITH PATIENT AND WILL CONTINUE TO MONITOR AND CAN HAVE IT TAKEN CARE OF AN ELECTIVE. NO OTHER COMPLAINTS. Follow up:
--- NOTE | 2016-08-30 02:42 | NUR ---
Significant Event: Pt is a pivot transfer, declines to ask for assist and usually does it on his own. Has red gripper sock to left foot. Edema 2+ in left lower leg/foot with redness and pain rated at 6-7 to bottom of left foot. Rt lower leg with healing bka incision/scabbed, minimal redness--discomfort rated at 7. Healed area to posterior rt knee, left open to air. Takes [place] two tabs at 2144, does sleep afterwards. Appetite good. Consumes sprite frequently. 97.9. Lotion applied to bilat legs/arms due to dry skin, also has areas on arms he has picked at. To area on left foot where toes were removed skin is moist, weepy, and scab appears to be loosening in spots. Cleansed with soap/water, patted dry. Remaining toenails trimmed and cleaned, avoided getting nails too short. Massaged lotion to skin on bottom/sides of foot, avoiding the amputated toe site, skin bright red after area massage. Follow up:Have ortho dr come to examine left foot. Monitor temp. Cyst removal from right hand ? when it'd be accomplished. Unsure of discharge date.
--- NOTE | 2016-08-30 07:30 | NUR ---
Pt voiced that he was conserned with his left foot, stated that "the pain has never woke me up before." rates pain 8. Left leg skin is red and shiny, has 2+ edema. Pt stated "I don't know why it is so swollen, I have had it on a pillow all night." Pt educated that it really should be above his heart when elevated to help edema. Pt voices understanding. Unable to palpate left pedal pulse. Edema 4+ in left foot. No drainage noted from amputation of toes.
--- NOTE | 2016-08-30 09:44 | NUR ---
Dr Rojas in to doppler pt's dorsial pedal pulse, able to obtain pulse. Provider ordered to apply damir dressing for edema. Damir in place, CMS intact after placing damir. Pt instructed to notify nurse if damir dressing becomes too tight.
--- NOTE | 2016-08-30 10:16 | NUR ---
D: Burrito Maker Team Conference Follow up for 08/29/16 I: Input from patient/family R: Met with: patient, Dr. Rojas, Mary Driver MASTER OCEAN Discussed rehab plan, patient progress, discharge plan and estimated length of stay of d/c planned as soon as plans can be arranged. Patient/Family Preference: Patient is in agreement. Anticipated discharge disposition: unknown. Education completed: Education was completed with patient regarding length of stay, progress in therapy and d/c plan. Assessment/Recommendation: Team recommends d/c soon. P: Case Coordination: Referrals were made to [facility] and [facility]. Both said no until payor source is established. [facility] said he will need to have payor source before they can take. Working on applications for HUD housing in [place]. Still waiting on approval from Medicaid or disability. Will follow and assist as needed.
[2016-08-30 10:38] LABS: BASOPHIL # 0.1 K/uL (0.0-0.2); EOSINOPHIL # 0.6 K/uL (0.0-0.5); EOSINOPHIL % 4.8 %; HEMATOCRIT 34.6 % (37.0-53.0); HEMOGLOBIN 10.9 g/dL (12.0-17.0); IMMATURE GRANULOCYTE % 0.3 %; LYMPHOCYTE # 3.1 K/uL (0.8-4.0); LYMPHOCYTE % 23.2 %; MCH 27.6 pg (27.0-34.0); MCHC 31.5 gm/dL (32.0-36.5); MCV 87.6 fl (83.0-98.0); MONOCYTE # 1.4 K/uL (0.0-1.0); MONOCYTE % 10.8 %; MPV 9.6 fl (9.4-12.4); NEUTROPHIL % 59.9 %; NRBC % 0 /100WBC (0-0.00); PLATELET COUNT 404 K/uL (150-450); RBC 3.95 M/uL (4.00-6.00); RDW-CV 14.9 % (11.9-14.6); WBC 13.4 K/uL (4.0-11.0)
--- NOTE | 2016-08-30 11:46 | NUR ---
D: TR progress note for 08/30/16. I: Pt seen for 2 units at 1100 in group session for education on relaxation techniques, stress/pain management, coping strategies, group participation and leisure education. R: Pt seen for functional skills building working on relaxation techniques, stress/pain management, continued education on coping skills and group interaction to increase knowledge of options available to assist with recovery. Pt completed functional social communication skills independently which involved personal introduction of self and identification of ways past Spring activities pt enjoyed. Education completed by verbal discussion and modeling on the signs and symptoms the physical stress/pain can cause on the body and it's affects along with identification of coping strategies, relaxation techniques using music, playaways, aromatherapy, labyrinthi, breathing exercises and leisure activities. P: Will continue to see to address goals and plan of care.
--- NOTE | 2016-08-30 17:12 | NUR ---
pt is alert and oriented to person, place time and situation. Am assassment abnormals were pt's lung sounds coarse, pt's right lower leg 2+ edema in the calf, red and shiny. Foot had 4+ edema. Dr Rojas notified that pedal pulse was unable to be palpatated. Provider ordered CBC and doppler. Provider able to doppler a pulse. Provider ordered KOLTON wrap to leg. KOLTON applied and pt educated on keeping leg elevated above heart. Pt noncompliant with elevation. CMS to leg remains intact after application orf KOLTON. Pt has rated pain 8/10 comsistently this shift and pain medication given x 2 last dose 1453. Pt transfers per self into w/c. Pt's intake and output adaquate this shift.
--- NOTE | 2016-08-31 03:39 | NUR ---
Significant Event:Moves in room and bathroom without assist at his preference, does well, has had w/c brakes locked. Moderate bm last evening. Po intake 820, 1875 ml output. Took two tabs [place] twice, last dose at 0307 for pain rated at 7 to rt stump/left foot--effective and slept. Urine voids yellow urine. Appetite good, consumes 2-3 sprites per shift, if not more. WBC yest was 13.4--afebrile 111/51. Removed acewrap after midnight when pt returns to bed, edema to left leg/foot 2+. Skin to left leg more white/cream colored, no redness--few scratch/scab beal. Trimmed nails to toes on --healing incision/scabbed area to left foot, tonight appeared more dry without drainage on inside of sock...was weepy on . Pt is to elevate foot above level of heart but pt non-compliant and states he can't sleep when leg is up so high. Doppler from yest negative per prior shifts' nurses. Follow up:Monitor left foot for drainage, edema, redness and pain--was very tight, red, edematous on Sunday day/night.
--- NOTE | 2016-08-31 09:42 | NUR ---
Significant Event:Pt sitting on edge of bed during rounds. Pt requested pain med when return to do assessment. Pt takes meds without difficulty, pt reports increase in pain then therapy try to make him walk, he reports he is ready to give up the idea of walking if it hurts that much, encouraged pt to give it time. Pt alert and orientated x 3. Eats in rm, usually eats well, request freq throuhout the day for petr mist with a cup of ice. Repositions self bed/chair. Note MAR for administration of [place]. Encourage left leg to be elevated when not in wheel chair or therapy. Monitor pedal pulse left foot, nailbeds pink. Pt has been pleasant and cooperative with plan of care. Follow up:pain control, monitor left foot for pulse/circulation, edema, and if any drainage.
--- NOTE | 2016-09-01 03:29 | NUR ---
Significant Event: Patient is alert and oriented. Can be noncompliant and gets upset if nursing bothers him to much. Left foot wrapped with DAMIR Wrap until he decided to get into bed. 3-4 + edema to his foot. Nursing had asked him numerous times to put his foot up or get into bed. He finally got into bed around 1:30 then up on the side of the bed at 0245 asking for a pain pill. Damir wrap was then removed. Noted dried drainage to the incison. Has been transfering himself in and out of bed. Has a harsh cough lungs coarse. Took Benadryl for sleep. [place] last given at 0245. Follow up: Elevate left foot.
--- NOTE | 2016-09-01 11:18 | NUR ---
Significant Event:Pt reported this am he was just out of sorts, i.e.when cath. sister went to visit pt. he stated You can sit and talk to me, just don't preach @ me, she told pt she wouldn't just there to visit. Meds whole with water, request pain meds as needs, likes [place], given before therapy. Eats in rm, not overally happy he was a room mate, really wants a private room. Encourage elevation of left leg, no drainage or weeping noted, pulse very faint, foot warm to touch, nailbeds pink. Pt has been pleasant and cooperative with plan of care. Therapy showered and dressed this am. Follow up:pain control, monitor left foot for pulse/circulation, edema and if any drainage.
--- NOTE | 2016-09-01 11:55 | NUR ---
D: TR progress note for 09/01/16. I: Pt seen for 2 units at 930 for community integration skills building, functional transfers, and safety awareness. R: Pt seen for functional skills building working on mobility, safety, awareness and functional transfers to increase independence in anticipation for discharge back into community. Pt transferred WC to/from vehicle SBA doing scoot type transfers with cues safety with WC setup. Pt was mod I for BLE management and positioning of self with seat surface adapted using trash bag to ease. Pt tolerated ride with no C/o pain or discomfort with continued education and community skills building. P: Will continue to see to address goals and plan of care.
--- NOTE | 2016-09-02 04:55 | NUR ---
Significant Event: Patient is alert and oriented. Is non compliant with his plan of care. Refuses to get into bed and night or elevate his left foot. Did not have his adria wrap on when assessed last night. Has 4 + edema to his left lower leg and foot. Has had [place] x 2 last at 0150. Gets angry with staff when asked to get into bed or elevate his foot. Monitor for PUlse and circulation to his left foot. Follow up:
--- NOTE | 2016-09-02 17:36 | NUR ---
Significant Event: Alert and oriented. Up with 1A scoot transfer. [place] given at 1451. Left leg 4+ edema. Encouraged to elevate but has remained in wheelchair. Pulse to left foot thready. Refuses ampushield. Non compliant with plan of care. Uses call light appropriately. Follow up:
--- NOTE | 2016-09-03 05:35 | NUR ---
Alert and oriented. Calls for assistance and pain meds as needed. Last took Ziyad at 2240, then fell asleep in wheelchair. At some point, he put himself to be without calling for help after midnight. Again encouraged to elevate left leg, as foot is edematous and area of white slough to wound. States it doesn't hurt and he likes sitting with it down.
--- NOTE | 2016-09-03 17:30 | NUR ---
Significant Event: Alert and oriented. Up with 1A scoot transfer. [place] given at 1328. Encouraged to elevate left leg. Non-compliant. 4+ edema to left leg. Refuses ampushield to right leg. Follow up:
--- NOTE | 2016-09-04 05:32 | NUR ---
Alert and oriented. Calls for assistance as needed. Slept better tonight from 2330 to 0500. [place] x 2 given at 0500. Transfers self from w/c to bed, even after instucting him to call for assistance. Left foot edematous and encourage to elelvate while in bed or wheelchair. Cont to keep it in dependent position, as he states it doesn't hurt or bother him.
[2016-09-04 06:06] LABS: ALBUMIN 3.1 gm/dL (3.5-5.0); ALK PHOS 103 IU/L (33-138); ALT 27 IU/L (12-78); ANION GAP 12.2 (10.0-19.0); BLOOD UREA NITROGEN 22 mg/dL (6-24); CALCIUM 9.2 mg/dL (8.5-10.5); CHLORIDE 103 mMol/L (96-110); CO2 28 mMol/L (22-32); CREATININE 0.8 mg/dL (0.6-1.3); ESTIMATED GFR (MDRD EQUATION) > 60; POTASSIUM 4.2 mMol/L (3.7-5.1); SODIUM 139 mMol/L (135-145); TOTAL PROTEIN 7.6 g/dL (6.0-8.4)
[2016-09-04 06:07] LABS: AST 36 IU/L (10-40); TOTAL BILIRUBIN 0.3 mg/dL (0.0-1.5)
--- NOTE | 2016-09-04 15:17 | NUR ---
Significant Event:A/0 X 3, UP WITH 1 ASSIST SCOOT TRANSFER, ENCOURAGE TO ELEVATE L)LEG, EDEMATOUS 3+, KOLTON WRAP TO L)LEG DAILY IN AM REMOVE AT NIGHT, NEW ORDER LASIX 20MG DAILY X 3 DAYS. MONITOR L)LEG BIG TOE AMPUTATION SITE FOR INCREASED DRAINAGE, SURGICAL CONSULT PUT IN FOR R)HAND CYST, STUMP SOCK AND PROSTHESIS USED FOR THERAPY, NO PAIN MEDICATION GIVEN AT THIS TIME. PT/OT SERVICES. Follow up:
--- NOTE | 2016-09-04 22:55 | NUR ---
Significant Event: Patient alert and oriented. Up with 1 assist scoot transfer Right below the knee amputation. Left leg has edema. Damir wraps to come off at night when in bed. Taking [place] for pain. Follow up:
--- NOTE | 2016-09-04 23:44 | NUR ---
PATIENT HAS REFUSED TO GO TO BED AT THIS TIME. IS UP IN THE WHEELCHAIR SLEEPING ON AND OFF.
--- NOTE | 2016-09-05 04:43 | NUR ---
Significant Event: No significant adverse events overnight. Pt did get angry and threw hospital phone when I asked pt to get into bed as he was in wheelchair when I arrived. Gave pt 2 [place] around 0030 with relief. Upon rounding, pt had stayed in the bed and slept. Pt had KOLTON wrap left on as did not want to wake pt up to remove. Possible care rounding to include discussion regarding pt to remain in bed and place wheelchair further so that pt cannot scoot back and forth into and out of wheelchair. Did explain to pt the need for being in bed to help the healing process. General surgery consult in for cyst on Rt hand. No orders written. Follow up: Possible agreement regarding patient to use nighttime to sleep to help with the healing process and be more amiable to staff with cares.
--- NOTE | 2016-09-05 14:21 | NUR ---
Significant Event:PATIENT ALERT AND ORIENTED THIS SHIFT. VSS. TRANSFERS WITH SBA. DOES NOT WEAR AMPUSHIELD HE SHOULD. ALSO STAYS UP IN WHEELCHAIR WHEN NOT IN THERAPY. HAS BEEN FAIRLY PLEASANT TODAY BUT DOES WHAT HE WANTS TO DO AND NOT WHAT IS RECOMMENDED. TAKES [place]CO 2 TABS PO FOR PAIN. LAST DOSE GIVEN AT 1218. STATED HE WOULD BE READY FOR MORE WHEN HE RETURNS FROM THERAPY AT 3PM. NO OTHER COMPLAINTS. Follow up:
--- NOTE | 2016-09-05 14:48 | NUR ---
D: TR progress note for 09/05/16. I: Pt seen for 2 units 1304 for leisure education, coping strategies, and pain/stress management techniques. R: Pt seen for functional skills building working on decision making, object reasoning, leisure participation, pain/stress management and coping strategies to increase independence in all task. Pt started on new leisure task doing reasoning and decision making doing "4" across activity. Pt needed setup and min > SBA at start of session demonstrating good fine motor skills with fair understanding of game's concept and strategy. Pt by end of session was SBA > occasional cues. Education and reviewed done on pain/stress management techniques, coping skills and discharge planning. P: Will continue to see to address goals and plan of care.
--- NOTE | 2016-09-06 03:33 | NUR ---
Significant Event: A&Ox3, VSS on room air. Wheezey lung sounds but denies SOB, "I'm feel fine". VSS on room air. Edema to left lower extremity. Encouraged to keep leg elevated, patient refused. SBA in wheel chair. Moderately independent. [place] given at HS with relief noted. Follow up:
--- NOTE | 2016-09-06 15:33 | NUR ---
Significant Event:No changes in assessment, pt remains non complaint with whatever he wishes to do or not do. Elevates legs @ times, but also sits in wheel chair for over 2 hours @ a time. Pt alert and orientated, expresses needs well, request pain meds as needed. Takes [place] 2 tabs @ a time, when requested. Lungs sound wheezy/slt crackly, hx COPD. Encourage SBA for transfers, sometimes pt is non complaint. Pt has been resonably pleasant and periods of complaint/non complaint with plan of care. Right hand benign growth, reported no plans for removal per Dr Jackson @ this time. Follow up:pain control, continue to watch left foot/lower leg, encourage to wear stump protector/rural mail carrier, encourage to elevate legs @ intervals throuhout the day.
--- NOTE | 2016-09-07 05:02 | NUR ---
Alert and oriented. Cont to stay up late and sleeps most of night in the wheelchair. Finally put himself to bed at 0330. Left foot cont to be edematous due to being in dependent position. Pt encouraged to elevate his foot while in wheelchair, but states it doesnt bother him. Takes 2 [place] for pain. Last given at 2114.
--- NOTE | 2016-09-07 15:26 | NUR ---
D: Zmt Operator Team Conference Follow up for 09/05/16 I: Input from patient/family R: Met with: patient, Dr. Rojas, Mary Driver PREMIX CONCRETE BATCHER Discussed rehab plan, patient progress, discharge plan and estimated length of stay of d/c planned as soon as a d/c plan can be arranged. Patient/Family Preference: patient is in agreement. Anticipated discharge disposition: unknown. Education completed: Education was completed with patient regarding length of stay, progress in therapy and d/c plan. Assessment/Recommendation: Team recommends d/c soon. P: Case Coordination: Jensen is a 56 year old man from [place], [place] admitted after right below the knee amputation. Continue to work on d/c plan. Working on getting certificate and social security card for patient. Will follow.
--- NOTE | 2016-09-07 17:12 | NUR ---
Significant Event:PATIENT ALERT AND ORIENTED THIS SHIFT. VSS. TRANSFERS WITH SBA. COMPLAINT OF PAIN IN HIS RIGHT STUMP AT TIMES. TAKES [place] FOR PAIN. LAST DOSE GIVEN OF 2 TABS PO AT 1451. ATTENDED THE SPEECH GROUP. IS FORGETFUL AT TIMES AND NEEDS REMINDED OF DIFFERENT THINGS AT TIMES. INCISIONS CONTINUE TO HEAL BUT LARGE SCABBED AREAS REMAIN. LEFT LEG WRAPPED THIS AM AFTER HIS SHOWER WITH KOLTON WRAP. NO OTHER COMPLAINTS. Follow up:
--- NOTE | 2016-09-08 03:54 | NUR ---
Significant Event: Patient is alert and orientd can be forgetful. VSS. Up one assist scoot transfers but transfer independently w/o calling for assist. Sits in W/C most of the night even after repeated requests. Finally gets into bed at 0100 then back up on SOB by 0330. Damir wrap was removed when he got into bed. Last [place] given at 0154. Follow up:
--- NOTE | 2016-09-08 16:12 | NUR ---
Significant Event: PATIENT IS ALERT/ORIENTED X 3. 1 ASSIST PIVOT TRANSFER. HAD [place] WITH DR. CORTES COME TO LOOK AT WOUNDS AFTER PATIENT HAD PHYSICAL THERAPY WITH IDALMIS AND SHOE ON. DECIDED TO DO AN ARTERIAL DUPLEX SCAN TO BILATERAL LOWER EXTREMITIES. AWAITING RESULTS OF THIS. ALSO HAD [facility] COM[facility] TO LOOK AT WOUNDS, SUSAN CAME AND CLEANED BOTH WOUNDS UP A LITTLE. SHE WROTE ORDERS FOR LEFT FOOT WOUND FOR GAUZE-TO RINSE WITH NORMAL SALINE DAILY, LONG MEPILEX TO RIGHT STUMP TO CHANGE TUESDAYS AND FRIDAYS. PATIENT HAS TAKEN NORCO 2 TABS X 2 TODAY. LAST AROUND 1540. Follow up:
--- NOTE | 2016-09-09 02:55 | NUR ---
Significant Event:Pt transfers self independently without calling staff after reminders were given. Sits on bedside edge or in w/c, refuses to elevate lower legs until he returns to bed after midnite. Drsg to left foot intact, no drainage. Mepilex drsg intact to distal rt stump, no drainage. Lower left leg edematous 2+ with skin being reddened, scratch/scab beal, and tight. Massaged lotion to extremities due to drying scabs and some open skin areas that were scratched. Did observe redness to bilat lower lateral abdomen, bright flat red rash--denies itchiness or discomfort, lotion applied. Voids per urinal yellow urine of large amts. Given [place] two tabs twice, last dose at 2300--rates pain at 7 and does drop to 4-5. Follow up:No results yet on arterial duplex scan to lower extremities. Change drsg to left foot with gauze, after washing with saline and patting area dry.
[2016-09-09 09:58] LABS: ALBUMIN 3.4 gm/dL (3.5-5.0); ALK PHOS 117 IU/L (33-138); ALT 29 IU/L (12-78); ANION GAP 14.1 (10.0-19.0); AST 29 IU/L (10-40); BLOOD UREA NITROGEN 20 mg/dL (6-24); CALCIUM 9.3 mg/dL (8.5-10.5); CHLORIDE 103 mMol/L (96-110); CO2 31 mMol/L (22-32); CREATININE 0.9 mg/dL (0.6-1.3); POTASSIUM 4.1 mMol/L (3.7-5.1); SODIUM 144 mMol/L (135-145); TOTAL BILIRUBIN 0.2 mg/dL (0.0-1.5); TOTAL PROTEIN 8.2 g/dL (6.0-8.4)
[2016-09-09 09:59] LABS: ESTIMATED GFR (MDRD EQUATION) > 60
--- NOTE | 2016-09-09 12:50 | NUR ---
Significant Event:Pt alert and orientated, forgetful, needs reinforcement several times. Pt CT scan today, GRF normal, IV started in right hand, SL. Pt had scan done this am, SL currently in, but pt wanted it out some time today. Plan to do Left foot dressing wound this afternoon. Note [place] PRN MAR, pt requests as needed. Pt continues to have multiple areas on his body, more so arms that he picks @, scabs in place. Pt has been pleasant, continues to be compliant with what he choices to be compliant with, even after teaching has been done. Follow up:pain control, follow up CT scan. Monitor pt when he dangles @ bed side.
--- NOTE | 2016-09-10 04:42 | NUR ---
Significant Event: Reports small bm last evening, not visualized by staff. Transfers self independently despite reminders from staff to call for standby assist for safety reasons, did observe one transfer and did well with scoot type transfer. Has c/o pain to bottom of left foot to ball area--rated at 10 on two different occasions with c/o sharp, throbbing pain--given [place] two tabs twice this shift, with last dose being at 0300. Changed drsg to left foot to observe, minimal to no drainage, some scab/ dark hard skin with dull red color to distal foot, some bright pink to wound where toes were amputated. Cleansed with saline, patted dry with gauze and gauze wrap applied to left foot. Voids per urinal of sufficient amts. Lotion applied to arms, abd, legs, and back for redness. Lower left leg red, shiny, tight with 3+ edema--has kept foot/leg elevated better tonight than on Sunday night but has sat on bedside edge as well. Mepelix drsg to rt leg, intact without drainage. Follow up:CT scan report placed on chart. Pain control with use of meds, elevation, diversion.
--- NOTE | 2016-09-10 12:40 | NUR ---
Significant Event:Recieved call from Dr Navas's PA, that will visit with pt on Mon. when he returns about the Sat scan result. Pt up in wheel chair for meals, sometimes naps in wheel chair. Lays in bed @ times and rests also. Requests pain meds as needed, used a little less today, since no therapy. Continues to have unchanged behavior, of being complaint with what he wants to be, other chahal often uncomplaint i,e, with transfers, elevating leg and stump. Due to dressings being changed on left foot on nocs, not changed this shift, no drainage showing @ this time. Lotion left @ bedside, which on occation pt will apply himself, pt continues to have multiple scabs. that he picks @ himself. Pt has been pleasant and cooperative as he desires. Follow up:pain control, encourage complaince with leg elevation.
--- NOTE | 2016-09-11 04:46 | NUR ---
Significant Event:transfers self from bed/wheelchair by self despite informing pt to call staff to observe/assist with transfer if needed. Voids per urinal--1275 ml out, 700+ ml in orally, last bm on . Has rated pain from 6-7, does drop to 5 after pain meds on board for about an hour. Left foot drsg changed--has dark eschar to medially area of toe site amputation with some pinkness/slough skin, and brown dried scab to lateral side of toe site amputation. Does have redness around periphery of involved area, mainly on pedal portion of foot. Mepelix drsg to rt stump--small amt drainage with area marked.106/68. Had doppler study on Sunday, then CT scan on Sun to lower legs--report of CT scan placed on chart. Yosef to come today to discuss findings with pt.Lotion applied to bilat arms,legs,foot, and lower lateral abdomen to red skin, has scabs/scratch beal scattered to areas. Lower left leg from knee distal with tight, shiny edema and redness--2+ edema. Encouraged to keep leg/foot elevated but sits on bedside edge dangling alot of the time in the evening. Stayed in bed from midnite with leg on pillow, was up 15 min around 0100 dangling and did return to bed when instructed to. Has had [place] 2 tabs x 2, last dose being at 0500 for pain to lower legs. Coarse, occas exp wheezing with loose cough--encouraged IS. No temp. Follow up:Daily drsg change to left foot. Mepelix drsg to be changed /sun/prn. Yosef to come today and share test results.
[2016-09-11 06:05] LABS: ALBUMIN 3.2 gm/dL (3.5-5.0); ALK PHOS 112 IU/L (33-138); ALT 22 IU/L (12-78); ANION GAP 11.2 (10.0-19.0); AST 27 IU/L (10-40); BLOOD UREA NITROGEN 20 mg/dL (6-24); CALCIUM 9.4 mg/dL (8.5-10.5); CHLORIDE 102 mMol/L (96-110); CO2 31 mMol/L (22-32); CREATININE 0.9 mg/dL (0.6-1.3); ESTIMATED GFR (MDRD EQUATION) > 60; POTASSIUM 4.2 mMol/L (3.7-5.1); SODIUM 140 mMol/L (135-145); TOTAL PROTEIN 7.6 g/dL (6.0-8.4)
[2016-09-11 06:09] LABS: TOTAL BILIRUBIN 0.3 mg/dL (0.0-1.5)
--- NOTE | 2016-09-11 10:17 | NUR ---
Meplex changed to pt's right stump. Odor noted with dressing change, eschar stuck to dressing and removes with dressing change. No blood noted, area wet and red around the eschar.
--- NOTE | 2016-09-11 15:20 | NUR ---
Pt is alert and oriented to peraon, place and time. Pt refuses to wear his ampusheild or stump long goods drier. Pt had dressing change to left foot, no drainage noted. Therapy assisted with shower this shift, dressing to stump changed. Eschar maserated and parts pulled off with mepalex, odor noted. Pt reports pain 7 to 8/10 this shift, pt requests pain medication every 3 hours. Pt does not lay in bed to elevate leg.
--- NOTE | 2016-09-11 18:59 | NUR ---
A-NUTRITION F/U CBW: 73.5 KG; WT IS UP 3.1 KG FROM LAST F/U 2+ EDEMA TO L)LOWER LEG. PT IS NON-COMPLIANT AT TIMES W/TXs LABS: NA 140, K+ 4.2, GLU 95, BUN 20, STONE HAND 0.9, ALB 3.2, ALB 27.0 NO NEW MEDS DIET RX: REGULAR W/ENSURE ENLIVE AND YOGURT QD AT [facility]. PT ALSO ORDERS MILD WITH HIS MEALS 2-3 TIMES PER DAY. PO INTAKE IS 100% FOR THE MOST PART. AVG KCAL AND PROTEIN INTAKE IS 2290 KCALS AND 108 GM PROTEIN EST NUTR NEEDS: [id number] KCALS AND 78-98 GM PROTEIN D-NOT AT NUTRITION RISK; NO NUTRITION DX IDENTIFIED I-CONTINUE W/CURRENT NUTRITION INTERVENTIONS IN PLACE M/E-WILL ASSIST NEEDED
--- NOTE | 2016-09-12 03:44 | NUR ---
Significant Event: Patient alert and oriented x 3. VSS. Up one assist scoot transfer but refuses to call for assist. Sat in w/c last night until around 0100 then finally layed down to sleep. Given 2 [place] at 1906 last evening. Mepilex dressing to his right stump change Sun, Sun. Dressing to his left foot to be changed daily. WOC is to see him today to get cultures on both sites. Dr Navas [facility] came in to see patient last evening and recommended to patient surgery. Patient is unsure if he wants surgery, is to decided and let MD know. Patient was told he will lose both legs if he does not get the surgery. Follow up:
--- NOTE | 2016-09-12 14:28 | NUR ---
Significant Event: Pt up in room with w/c. Pt is now Mod I. Dressing to left foot and rt stump changed at 1030. Pt will discuss with Dr Navas possible surgery tomorrow for femoral occlusion. Pt had questions for Dr. Navas this am. Dr Navas in to talk to pt this afternoon. [place] 2 tabs last at 1015. Cultures to foot cancelled by WOC. Stump helicopter specialist and guard on t/o day. Left leg remains swollen, tight, redness present. Small scabs all over arms and legs. Lotion to extremities. Follow up: possible surgery, pain management, activity
--- NOTE | 2016-09-12 14:34 | NUR ---
D: TR progress note for 09/12/16. I: Pt seen for 2 units at 1100 for leisure education, pain/stress management, balance and coping strategies. R: Pt seen for functional skills building working on balance, pain/stress management, coping and leisure education to promote recovery in all areas. Pt completed new leisure task using computer game Wii bowling from WC position for balance and safety. Pt utilized LUE with good hand-eye coordination with use of Wii tool for bowling and fair > poor safety awareness with WC. Education and review continued on utilization of leisure involvement post discharge to promote recovery and for coping. P: Will continue to see to address goals and plan of care.
[2016-09-12 15:59] LABS: HEMATOCRIT 35.9 % (37.0-53.0); HEMOGLOBIN 11.2 g/dL (12.0-17.0); MCH 27.2 pg (27.0-34.0); MCHC 31.2 gm/dL (32.0-36.5); MCV 87.1 fl (83.0-98.0); MPV 10.3 fl (9.4-12.4); PLATELET COUNT 329 K/uL (150-450); RBC 4.12 M/uL (4.00-6.00); RDW-CV 15.8 % (11.9-14.6); WBC 10.6 K/uL (4.0-11.0)
[2016-09-12 16:06] LABS: PROTIME 10.6 SECONDS (9.6-11.1)
[2016-09-12 16:14] LABS: ANION GAP 12.1 (10.0-19.0); BLOOD UREA NITROGEN 27 mg/dL (6-24); CHLORIDE 101 mMol/L (96-110); CO2 30 mMol/L (22-32); CREATININE 1.1 mg/dL (0.6-1.3); ESTIMATED GFR (MDRD EQUATION) > 60; POTASSIUM 4.1 mMol/L (3.7-5.1); SODIUM 139 mMol/L (135-145)
[2016-09-12 16:50] LABS: ABSOLUTE NEUTROPHIL CT (ANC) 6.5 K/uL (1.4-9.0); LYMPHOCYTE # 2.4 K/uL (0.8-4.0); LYMPHOCYTE % 23 %; MONOCYTE # 1.4 K/uL (0.0-1.0); SEGMENTED NEUTROPHIL # 6.5 K/uL (1.4-9.0); SEGMENTED NEUTROPHIL % 61 %
--- NOTE | 2016-09-13 05:03 | NUR ---
Alert and oriented. May be up ad adele in room. FIM shower last evening. Stump and left foot covered with gauze dsing following shower as ordered. Will d/c to OR this am and then on to acute care. Probably PCU where he will most likely remain until discharged from hospital. CT showed bilateral femoral occlusions which explains poor circualtion and healing for pt. Scheduled for bilateral endartectomies around 1030 this am. NPO. Did take [place] x2 tabs at 0308 with sips of water. Anxious about surgery with difficulty sleeping tonight. Clothes are packed up and ready to go. Needs personal items packed and discharge packet completed.
[2016-09-13 05:46] LABS: BASOPHIL # 0.1 K/uL (0.0-0.2); BASOPHIL % 1.2 %; EOSINOPHIL # 0.5 K/uL (0.0-0.5); EOSINOPHIL % 5.5 %; HEMATOCRIT 34.9 % (37.0-53.0); HEMOGLOBIN 10.9 g/dL (12.0-17.0); IMMATURE GRANULOCYTE % 0.1 %; LYMPHOCYTE # 2.8 K/uL (0.8-4.0); LYMPHOCYTE % 31.5 %; MCH 27.1 pg (27.0-34.0); MCHC 31.2 gm/dL (32.0-36.5); MCV 86.8 fl (83.0-98.0); MONOCYTE # 1.6 K/uL (0.0-1.0); MPV 10.2 fl (9.4-12.4); NEUTROPHIL # (ANC) 3.9 K/uL (1.4-9.0); NEUTROPHIL % 43.7 %; NRBC % 0 /100WBC (0-0.00); PLATELET COUNT 314 K/uL (150-450); RBC 4.02 M/uL (4.00-6.00); RDW-CV 15.6 % (11.9-14.6); WBC 8.8 K/uL (4.0-11.0)
[2016-09-13 06:13] LABS: ANION GAP 14.1 (10.0-19.0); BLOOD UREA NITROGEN 25 mg/dL (6-24); CALCIUM 9.4 mg/dL (8.5-10.5); CHLORIDE 103 mMol/L (96-110); CO2 27 mMol/L (22-32); CREATININE 0.8 mg/dL (0.6-1.3); ESTIMATED GFR (MDRD EQUATION) > 60; MAGNESIUM 2.1 mg/dL (1.3-2.6); POTASSIUM 4.1 mMol/L (3.7-5.1); SODIUM 140 mMol/L (135-145)
--- NOTE | 2016-09-13 14:26 | NUR ---
Significant Event: Follow up: Patient did not have surgery today. Will plan to have surgery on sunday. Patient was initally upset but did settle down, out for therapy today. norco 2 tabs last at 0900. UP ad adele in room.
--- NOTE | 2016-09-14 02:55 | NUR ---
Significant Event: Patient alert and oriented x 3, VSS. Transfers himself to and from chair to bed or toilet. Refuses to call for assist. Voids per urinal. Plans for surgery on Sunday will be transfered to [facility]. Took 2 [place] at 1907 and [place] at 2030 for sleep. Got into bed at around 2230 and has stayed in bed since then. Dresssing intact to left foot and right stump. Dr Navas will be in to see patient today. Follow up:
--- NOTE | 2016-09-14 14:24 | NUR ---
Significant Event: PATIENT UP 1 ASSIST PIVOT TRANSFER. ALERT AND ORIENTED X3. VITALS STABLE ON ROOM AIR. 1400 LAST NORCO PRN. MEPILEX TO RIGHT STUMP SITE. LEFT FOOT DRESSING CHANGED, GAUZE WRAP. SHOWERED TODAY.TOLERATING THERAPY WELL. SURGERY TOMORROW, FEM POP. IS STILL SUPPOSED TO COME SEE PATIENT TODAY. NEED TO OBTAIN ORDER FOR NPO AFTER MIDNIGHT AND LOVENOX HOLD FOR TOMORROW AM. PATIENT AWARE OF TRANSFER TO ACUTE CARE FOLLOWING SURGERY TOMORROW. Follow up:
--- NOTE | 2016-09-15 04:51 | NUR ---
Significant Event:Pt does scoot/pivot transfer into w/c without assist despite asking pt to call for staff supervision. Drsg to left foot intact, no visible drainage. Small amt drainage to Mepelix drsg to rt bka. Voids per urinal. Op permit signed and in front of chart. Last bm on 09/14. Appetite good, consumes large amts spencer mist. Takes [place] 2 tabs three times tonight, last dose at 0410--rates pain at 7-8, meds bring level down to 5. Scattered wheezes/fine rales/crackles--encouraged I.S. to be done. Continues to have small scabs/open areas on arms/legs from picking--none bleeding. Follow up:Needs hibiclens shower this a.m. and gown change prior to scheduled surgery of [address] maria teresa Morgan dosage this a.m. Finish surgical checklist. Will be discharged from [facility] to OR, packet at nurses desk that has been started.
--- NOTE | 2016-09-15 11:30 | NUR ---
D: Plate And Weld Inspector Team Conference Follow up for 09/12/16 and Discharge Note for 09/15/16 I: Input from patient/family R: Met with: patient, Dr. Rojas, Mary Driver PODIATRIC FOOT AND ANKLE SPECIALIST Discussed rehab plan, patient progress, discharge plan and estimated length of stay of d/c planned on 09/15/16 to surgery. Patient/Family Preference: Patient is in agreement. Anticipated discharge disposition: unknown. Education completed: Education was completed with patient regarding length of stay, progress in therapy and d/c plan. Assessment/Recommendation: Team is okay with d/c to surgery. P: Case Coordination: Jensen is a 56 year old man from [place], [place] admitted following right below the knee amputation. Plan is d/c on Thursday, September 15, 2016 for surgery. Will follow and assist as needed.
--- NOTE | 2016-09-15 11:51 | NUR ---
Patient discharged to surgery at 1005. Up mod I in room. Pain at a 7. No PRN pain meds given this shift. Dressings removed from right stump and left foot. Hibiclens shower done this morning. Patient was very anxious this morning about surgery. Cooperative with cares.
[2017-01-26] MEDS ORDERED: LIPITOR40 MG PO (12:52)
[2017-01-26] MEDS ORDERED: ZYLOPRIM100 MG PO (12:52)
[2017-01-26] MEDS ORDERED: CYMBALTA30 MG PO (12:54)
[2017-01-26] MEDS ORDERED: PLAVIX75 MG PO (12:55)
[2017-01-26] MEDS ORDERED: CEFADROXIL500 MG PO (12:56)
[2017-01-26] MEDS ORDERED: FEOSOL325 MG PO (12:57)
[2017-01-26] MEDS ORDERED: COLACE100 MG PO (12:57)
[2017-01-26] MEDS ORDERED: FLORASTOR250 MG PO (12:58)
[2017-01-26] MEDS ORDERED: NEURONTIN300 MG PO (12:58)
[2017-01-26] MEDS ORDERED: MS CONTIN15 MG PO (13:00)
[2017-01-26] MEDS ORDERED: ZANTAC (NON-FO150 MG PO (13:00)
[2017-01-26] MEDS ORDERED: BENADRYL25 MG PO (13:01)
[2017-01-26] MEDS ORDERED: DULCOLAX10 MG R (13:02)
[2017-01-26] MEDS ORDERED: NITROSTAT 0.40.4 MG SL (13:03)
[2017-01-26] MEDS ORDERED: MILK OF MA400 MG/5 M PO (13:03)
[2017-01-26] MEDS ORDERED: PERCOCET 5-3251 EACH PO (13:04)
== END 2016-09-15 10:05 | disposition hospice, home (50) | DRG 559 ==
LOC: GIRP 10:56
PROVIDERS: Family Medicine; Internal Medicine; Nurse Practitioner Family; Surgery Vascular Surgery; ADMIT Physical Medicine & Rehabilitation
PROC: F07L6ZZ Therapeutic Exercise Treatment of Musculoskeletal System - Lower Back / Lower Extremity (ICD-10-PCS; principal; 2016-07-13)
PROC: F08Z4ZZ Home Management Treatment (ICD-10-PCS; principal; 2016-07-13)
PROC: F07Z4ZZ Wheelchair Mobility Treatment (ICD-10-PCS; principal; 2016-07-13)
PROC: F07 Physical Rehabilitation and Diagnostic Audiology, Rehabilitation, Motor Treatment (ICD-10-PCS; principal; 2016-07-13)
PROC: F06Z6ZZ Communicative/Cognitive Integration Skills Treatment (ICD-10-PCS; principal; 2016-07-13)
DX: Z47.81 Encounter for orthopedic aftercare following surgical amputation (principal); J96.01 Acute respiratory failure with hypoxia; I95.9 Hypotension, unspecified; R65.10 Systemic inflammatory response syndrome (SIRS) of non-infectious origin without acute organ dysfunction; L02.415 Cutaneous abscess of right lower limb; L03.115 Cellulitis of right lower limb; D72.829 Elevated white blood cell count, unspecified; M86.8X6 Other osteomyelitis, lower leg; G54.6 Phantom limb syndrome with pain; I10 Essential (primary) hypertension; E78.5 Hyperlipidemia, unspecified; Z89.511 Acquired absence of right leg below knee; Z89.422 Acquired absence of other left toe(s); I73.9 Peripheral vascular disease, unspecified; F10.10 Alcohol abuse, uncomplicated; G89.29 Other chronic pain; M54.5 Low back pain; R26.9 Unspecified abnormalities of gait and mobility; F17.200 Nicotine dependence, unspecified, uncomplicated; R32 Unspecified urinary incontinence; R15.9 Full incontinence of feces; R60.9 Edema, unspecified; L29.9 Pruritus, unspecified; R21 Rash and other nonspecific skin eruption; M67.431 Ganglion, right wrist; I77.9 Disorder of arteries and arterioles, unspecified
CPT/HCPCS: A9577; J0692; J1650; J2543; J3370; J7030; J7040; J7050; Q9967

== ENCOUNTER 2016-09-14 13:00 | Inpatient (IN) | payer MEDICAID ==
[~2016-09-14] VITALS: Ht 177.8 cm; Wt 69.6 kg
--- NOTE | ~2016-09-14 | CON ---
PATIENT'S NAME: SAMIRA DAWN [facility] AGE: 56 Y [address] ROOM: [id number] [place], [place] [address] LOCATION: CU ADMIT DATE: 09/15/2016 Consultation DISCHARGE DATE: FAMILY PHYSICIAN: Luisito Hector DO ATTENDING PHYSICIAN: Jeane THOMSON DATE OF CONSULTATION: 10/11/2016 REFERRING PHYSICIAN: Jeane THOMSON REASON FOR CONSULTATION: Infection after endarterectomy with bovine patch with Staph aureus. HISTORY: Mr. Dawn is a 56-year-old male with a known history of peripheral vascular disease who on 09/16 underwent bilateral femoral endarterectomy back in September. Previously, he had had a right [id number] amputation and a left great toe amputation. He had been on rehab and was on many antibiotics, but had critical limb ischemia developing and underwent OR procedure for that on 09/15. This was accompanied with bovine pericardial patch at the endarterectomy site. He subsequently had breakdown of his wounds and underwent debridement of both his BKA site and his left great toe amputation site and had abscesses in his groin; it appears evacuation of fluid more so on the left than the right, and the culture on the left is growing MSSA. He subsequently had bleeding and had to go back and this appeared to be bleeding from the abscess cavity that was cauterized and packed. There was not a mention of if this went all the way down to the vessels in the patch from what I can tell. The patient is not having fevers, chills, or sweats. He is not having pain now. He has VACs on both of his wounds. ID is asked to see and assist as his cultures are growing MSSA. He is not having cough, shortness of breath, abdominal pain, nausea, vomiting, or diarrhea. He is not eating much, however. PAST MEDICAL HISTORY: Significant for peripheral vascular disease, chronic low back pain, long- standing tobacco abuse, and alcohol abuse. PAST SURGICAL HISTORY: He had surgery to remove a cyst from his tail bone and the right BKA and a left great toe amputation. FAMILY HISTORY: Father had heart problems and in his 60s. His mom is still alive. SOCIAL HISTORY: He lives by himself in [place]. Smokes a pack-a-day for at least 30 years. PATIENT'S NAME: SAMIRA DAWN [facility] AGE: 56 Y [address] ROOM: [id number] [place], [place] [address] LOCATION: GICU ADMIT DATE: 09/15/2016 Consultation DISCHARGE DATE: FAMILY PHYSICIAN: Luisito Hector DO ATTENDING PHYSICIAN: Jeane THOMSON Drinks multiple cans of beer a day. ALLERGIES: NONE. MEDICATIONS: He is on vancomycin and Zosyn presently. REVIEW OF SYSTEMS: All remaining review of systems were otherwise reviewed with pertinent positives and negatives in the HPI. PHYSICAL EXAMINATION: GENERAL: He is sitting up in a chair. Awake, alert, oriented, not in any acute distress. He is nontoxic. VITAL SIGNS: T-max is 98.8, blood pressure 137/71, pulse 70, and respirations 15. HEENT: NC/AT. EOMI. PERRLA. There is no icterus. NECK: Supple. LUNGS: Clear to auscultation bilaterally, but decreased. HEART: Regular S1, S2. ABDOMEN: Soft and nontender. EXTREMITIES: He has a stump protector on his right BKA wound. He has an open wound on his left great toe amputation site, it has some seropurulent drainage. He has VACs on both groins. SKIN: Without rash. LABORATORY DATA: His white count is 16.6 and is trending down, hemoglobin is 9.2, and platelet count is 263. Sodium 145, potassium 3.6, chloride 112, bicarb 27, BUN 13, creatinine 0.8, and glucose is 102. Cultures from his left groin are growing MSSA, these are from 10/09. Blood cultures from 10/08 have no growth. Urine culture from 10/08 grew Enterobacter cloacae complex, but only 1 to [id number] colonies. ASSESSMENT AND PLAN: 1. Infected groin after surgery for peripheral vascular disease with bovine pericardial patch placement. At this point in time, I cannot tell if the vascular patch and/or the vessel was involved, but I assume that high likelihood of that being the case. Dr. Nava had spoken with Dr. Navas who had mentioned that he felt the patient needs a long course of antibiotics, but for certainly he suggests that the concern that the vessel or the graft were involved. Given MSSA, we will plan on treating him with Ancef. Given the bleeding and concern for the patch involvement, we would keep him on 6 weeks of antibiotics intravenously PATIENT'S NAME: SAMIRA DAWN [facility] AGE: 56 Y [address] ROOM: [id number] [place], [place] [address] LOCATION: [facility] ADMIT DATE: 09/15/2016 Consultation DISCHARGE DATE: FAMILY PHYSICIAN: Luisito Hector DO ATTENDING PHYSICIAN: Jeane THOMSON and then he may need some oral for at least 6 months or longer pending on how he is doing at that time. We will switch him over to cefazolin 2 g IV q.8 hours. There is a question of whether he might have some osteomyelitis in his foot or at the stump site as well. Certainly, the long course of antibiotics would be medically indicated if that was the case. The question would be if he needs further revision of the amputation, and we will defer that to Dr. Navas. MD THERON STOCK/modl /[id number] d: 10/11/16 180 t: 11/21/16 1103, CONSULTATION REPORT
--- NOTE | ~2016-09-14 | DS ---
PATIENT'S NAME: SAMIRA DAWN [facility] AGE: 56 Y [address] ROOM: [place] [address] LOCATION: [facility] [place] ADMIT DATE: 09/15/2016 Discharge Summary DISCHARGE DATE: 11/20/2016 FAMILY PHYSICIAN: Luisito Hector DO ATTENDING PHYSICIAN: Vannesa Ching PRIMARY DIAGNOSES: 1. Bilateral critical limb ischemia, status post right BKA. 2. Severe sepsis. 3. Septic shock. 4. Right groin abscess with methicillin-sensitive Staphylococcus aureus. 5. Peripheral arterial disease. 6. Chronic pain syndrome. 7. Moderate protein-calorie malnutrition. 8. Essential hypertension. 9. Osteoarthritis. 10. Chronic hypoxic and hypercapnic respiratory failure with chronic obstructive pulmonary disease. 11. History of alcohol dependence. OPERATIONS/PROCEDURES: 1. Bilateral lower extremity common femoral endarterectomy was performed on 09/15/[address] Navas. 2. Bilateral lower extremity debridements performed on 10/04/[address] Navas. 3. Bilateral groin exploration and drainage of abscess performed on 10/09/[address] Navas and repeat exploration performed on 10/09/[address] Navas. 4[address] scan of the abdomen and pelvis performed on 10/08/2016 demonstrated air and fluid collections in the bilateral groins, larger on the left side. Moderate superior mesenteric stenosis was noted. 5. CT scan of the abdomen and pelvis performed on 10/10/2016 demonstrated improved appearance of the bilateral groins. 6. Panorex performed on 10/11/2016 demonstrated first molar on the right with periodontal disease. HISTORY OF PRESENTING ILLNESS AND REASON FOR ADMISSION: Please refer to the original H and P dictated in June 2016. HOSPITAL COURSE: The patient was admitted to the hospital as noted above initially with right foot pain. Please see the hospital chart for specific details regarding his inpatient stay, subsequent discharge to inpatient rehab, and hospital re-admission. Refer to the hospital chart for specific details regarding this very extended hospital stay. PATIENT'S NAME: SAMIRA DAWN [facility] AGE: 56 Y [address] ROOM: [place] [address] LOCATION: [facility] – [place] ADMIT DATE: 09/15/2016 Discharge Summary DISCHARGE DATE: 11/20/2016 FAMILY PHYSICIAN: Luisito Hector DO ATTENDING PHYSICIAN: Vannesa Ching The patient was admitted to the hospital as noted above on 09/15/2016 with critical limb ischemia. He underwent urgent bilateral femoral endarterectomy under the direction of Dr. Navas. Postoperatively, his clinical progress was very slow. Progress was limited by pain control primarily. He did develop bilateral groin abscesses as described above. He was treated with broad-spectrum antibiotic therapy including combinations of Zosyn, vancomycin, and doxycycline. Ultimately, a PICC line was placed, and he was treated with long-term cefazolin. He did complete a 6-week course of that and was subsequently recommended to start Duricef for total of 6 months. He did receive physical therapy, occupational therapy, and restorative cares. His clinical progress was extremely slow as outlined above. Care management was involved with seeking placement options for him. Discharged to home was felt to not be feasible based on the patient's poor clinical status and very poor functional status. Ultimately, placement was found for him at the [facility]. By the end of the second month of his hospital stay here, it was felt he would be stable enough for discharged to the [facility] for continued restorative care, ongoing oral antibiotic management, and close clinical followup with his primary care physician as well as outpatient followup with Vascular Surgery. DISCHARGE INSTRUCTIONS: DIET: Regular as tolerated. ACTIVITY: As tolerated. He will engage in physical therapy and occupational therapy. He will wear his right prosthesis to ambulate and observe strict fall precautions. MEDICATIONS: 1. Percocet 5/325 one to two tabs p.o. q.6 hours p.r.n. pain. 2. Morphine sulfate ER 30 mg 1 tablet p.o. b.i.d. p.r.n. pain. 3. Allopurinol 100 mg p.o. daily. 4. Atorvastatin 40 mg p.o. q.h.s. 5. Duricef 500 mg p.o. b.i.d. x6 months. 6. Peridex oral rinse 30 mL p.o. b.i.d. 7. Plavix 75 mg p.o. daily. 8. Lotrimin apply topically b.i.d. 9. Cymbalta 30 mg p.o. q.h.s. 10. Iron 325 mg p.o. b.i.d. 11. Gabapentin 300 mg p.o. b.i.d. 12. Nicotine patch 7 mg apply and change daily. PATIENT'S NAME: SAMIRA DAWN [facility] AGE: 56 Y [address] ROOM: [address] [address] LOCATION: [facility] – [place] ADMIT DATE: 09/15/2016 Discharge Summary DISCHARGE DATE: 11/20/2016 FAMILY PHYSICIAN: Luisito Hector DO ATTENDING PHYSICIAN: Vannesa Ching 13. Nystatin powder apply topically t.i.d. to the groin. 14. Florastor 250 mg p.o. b.i.d. 15. Acetaminophen 1000 mg p.o. q.i.d. p.r.n. pain or fever. 16. Dulcolax 10 mg SC daily p.r.n. constipation. 17. Benadryl 25 mg p.o. q.h.s. p.r.n. insomnia. 18. Milk of magnesia 30 mL p.o. daily p.r.n. constipation. 19. Nitroglycerin 0.4 mg sublingually q.5 minutes x3 p.r.n. chest pain. 20. DuoNeb per nebulizer q.4 hours p.r.n. wheezing or dyspnea. FOLLOWUP: He will have a CBC in 5 days. He will have a BMP in 5 days to be followed up with his primary care physician. He will follow up with Dr. Navas on an as-needed basis. He will follow up with Infectious Disease as needed. CONDITION ON DISCHARGE: Fair. Total time spent on discharge process 45 minutes. MD ROSELIA HOGAN/naima /[id number] d: 11/21/16 0419 t: 11/23/16 1814, DISCHARGE SUMMARY
--- NOTE | ~2016-09-14 | OR ---
PATIENT'S NAME: SAMIRA DAWN [facility] AGE: 56 Y [address] ROOM: [address] [address] LOCATION: GPCU ADMIT DATE: 09/15/2016 OR/Procedure Report DISCHARGE DATE: FAMILY PHYSICIAN: Luisito Hector DO ATTENDING PHYSICIAN: KRAIG NAVAS SURGEON: Kraig Navas MD OFFICE CLINICIAN: DATE OF PROCEDURE: 09/15/2016 PREOPERATIVE DIAGNOSIS: Bilateral lower extremity critical limb ischemia. POSTOPERATIVE DIAGNOSIS: Bilateral lower extremity critical limb ischemia. PROCEDURE: Bilateral lower extremity common femoral endarterectomy. METER SHOP SUPERVISOR: MARCO ANTONIO Ruby. ANESTHESIA: General. ESTIMATED BLOOD LOSS: 100 mL. OPERATIVE FINDINGS: Improved signals in both limbs distally. DESCRIPTION OF PROCEDURE: The patient was brought to the operating room, placed supine on the operating table, placed under general anesthesia, prepped and draped in a sterile manner. Preoperative time-out was performed. The patient had placement of arterial line. We made a vertical incision first in the left groin, dissected down the fascia, incised the fascia in a longitudinal manner, and then dissected out the common, the superficial femoral and the profunda arteries. We gave 5000 units of heparin. We made an arteriotomy with an 11 blade and extended with Aguilar scissors. We then removed the entire plaque removing it from the common femoral, the profunda, as well as superficial femoral with good bleeding from all 3 vessels. We then patched it with a running 6-0 Clayton suture on a bovine pericardial patch. We removed the clamps. There was excellent flow in all three arteries and there was increased flow in the dorsalis pedis of the left foot. We then repeated the exact same procedure on the right and dissected down the fascia in a similar fashion. Dissected out the all 3 major vessels, clamped after giving more heparin, and then performing the endarterectomy. The SFA on this side, however, appeared to be occluded. We did pass a removing large amounts of old organized clot. The patient thrombosed his SFA at some point in his life. We did get some good backbleeding, but it is likely that this SFA is occluded more distally. We then patched this artery in similar fashion with a bovine pericardial patch using two running 6-0 Clayton sutures. We then reversed the heparin with protamine, used thrombin locally PATIENT'S NAME: SAMIRA DAWN [facility] AGE: 56 Y [address] ROOM: [address] [address] LOCATION: [facility] ADMIT DATE: 09/15/2016 OR/Procedure Report DISCHARGE DATE: FAMILY PHYSICIAN: Luisito Hector DO ATTENDING PHYSICIAN: KRAIG NAVAS in the wound as well as Surgicel with 2-0 and 3-0 Vicryl. Skin was closed with yordy. The patient tolerated the procedure well, awoken in the operating room, transferred to the recovery room and then up to the floor. MD HOANG TAMAYO/naima /[id number] d: 09/15/16 2210 t: 09/16/16 0945, OPERATIVE SUMMARY
--- NOTE | ~2016-09-14 | OR ---
PATIENT'S NAME: SAMIRA DAWN [facility] AGE: 56 Y [address] ROOM: [place] [address] LOCATION: GICU ADMIT DATE: 09/15/2016 OR/Procedure Report DISCHARGE DATE: FAMILY PHYSICIAN: Luisito Hector DO ATTENDING PHYSICIAN: Jeane THOMSON SURGEON: Kraig Navas MD DESIGN STUDIO CONSULTANT: DATE OF PROCEDURE: 10/09/2016 PREOPERATIVE DIAGNOSIS: Bleeding from right groin site which was previously evacuated of abscess. POSTOPERATIVE DIAGNOSIS: Bleeding from right groin site which was previously evacuated of abscess. PROCEDURE: Exploration of groin and hemostasis control. ASSEMBLY INSPECTOR HELPER: Cara Bush. ANESTHESIA: General. ESTIMATED BLOOD LOSS: 25 mL. OPERATIVE FINDINGS: Just oozing from wall edges of wound. No active pumper seen. DESCRIPTION OF PROCEDURE: The patient was brought back to the operating room after drainage of his abscess in both groins because of heavy bleeding from the right groin. We quickly prepped and draped, placed under general anesthesia. He was already on around the clock antibiotics. We had been explored the right groin wound. There was no definitive pumper of blood, no arterial bleeding from the common femoral, but just a slow amount of oozing from the scar tissue, surrounding the abscess cavity. We Bovie cauterized. We copiously irrigated again and packed the wound with Surgicel and Kerlix. The patient tolerated the procedure well and transferred to recovery room and then back to the ICU. KRAIG NAVAS MD FKM/modl PATIENT'S NAME: SAMIRA DAWN [facility] AGE: 56 Y [address] ROOM: [place] [address] LOCATION: GICU ADMIT DATE: 09/15/2016 OR/Procedure Report DISCHARGE DATE: FAMILY PHYSICIAN: Luisito Hector DO ATTENDING PHYSICIAN: Jeane THOMSON /[id number] d: 10/09/16 151 t: 10/11/161511, OPERATIVE SUMMARY
--- NOTE | ~2016-09-14 | OR ---
PATIENT'S NAME: SAMIRA DAWN [facility] AGE: 56 Y [address] ROOM: [place] [address] LOCATION: [facility] [place] ADMIT DATE: 09/15/2016 OR/Procedure Report DISCHARGE DATE: FAMILY PHYSICIAN: Luisito Hector DO ATTENDING PHYSICIAN: Jeane THOMSON SURGEON: Kraig Navas MD CHASSIS ENGINEER: DATE OF PROCEDURE: 10/04/2016 PREOPERATIVE DIAGNOSES: Bilateral lower extremity amputation sites requiring debridement. POSTOPERATIVE DIAGNOSIS: Bilateral lower extremity amputation sites requiring debridement. PROCEDURE PERFORMED: Bilateral lower extremity debridements. GREENKEEPER: MARCO ANTONIO Russell ANESTHESIA: General. ESTIMATED BLOOD LOSS: 5 mL. OPERATIVE FINDINGS: Good bleeding edges after removal of scabs and necrotic tissue. DESCRIPTION OF PROCEDURE: The patient was brought to the operating room, placed supine on the operating table, and prepped and draped in a sterile manner. Preoperative time-out was performed. The patient was placed under general anesthesia. We gave 2 g of Ancef for antibiotic coverage. We sharply debrided out the scabs and necrotic patches that were covering the wounds of the left toe amputation site as well as the right BKA site. We sharply debrided until we had clean, healthy, bleeding edges. We then copiously irrigated with antibiotic solution, and then we wrapped both incision sites with Dakin-soaked solution. The patient tolerated the procedure well and was transferred to the recovery room and back to the floor. KRAGI NAVAS MD FKM/modl PATIENT'S NAME: SAMIRA DAWN [facility] AGE: 56 Y [address] ROOM: [place] [address] LOCATION: [facility] [place] ADMIT DATE: 09/15/2016 OR/Procedure Report DISCHARGE DATE: FAMILY PHYSICIAN: Luisito Hector DO ATTENDING PHYSICIAN: Jeane THOMSON /[id number] d: 10/04/16 1114 t: 10/07/1627, OPERATIVE SUMMARY
--- NOTE | ~2016-09-14 | CON ---
PATIENT'S NAME: SAMIRA DAWN [facility] AGE: 56 Y [address] ROOM: [place] [address] [facility] ADMIT DATE: 09/15/2016 Consultation DISCHARGE DATE: FAMILY PHYSICIAN: Luisito Hector DO ATTENDING PHYSICIAN: Jeane THOMSON DATE OF CONSULTATION: 10/23/2016 REFERRING PHYSICIAN: Arnulfo Zamora MD REASON FOR VISIT: Groin rash and antibiotic management. HISTORY OF PRESENT ILLNESS: This is a 56-year-old male patient who was admitted to [facility] back in June with a right necrotic foot. I saw him on July 07, but was asked to re-consult for a groin rash and antibiotic management. The patient has a significant history of peripheral vascular disease, hypertension, tobacco use, osteoarthritis, and alcohol abuse. At the end of June, he underwent a right BKA. He was recovering on the inpatient rehab unit on IV antibiotic therapy but developed critical limb ischemia. He subsequently underwent a bilateral lower extremity common femoral endarterectomy with bovine patch on September 15. At the end of September, the patient had bilateral lower leg debridements. On October 09, he suffered from groin abscess bleeding. He has had wound VAC therapy to bilateral groins. Nursing has struggled over the weekend to keep a seal, so they applied a wet- to-dry dressing to his left groin. The patient is currently on cefazolin x6 weeks for an MSSA infection. The patient is rating his groin pain an 8/10. He is denying groin pruritus. No skin denudement. He was started on nystatin powder t.i.d. last Sunday. He reports a fair oral intake. He denies chest pain or shortness of breath. He is afebrile. PAST MEDICAL HISTORY: 1. Essential hypertension. 2. Chronic lower back pain. 3. Tobacco dependence. 4. Alcohol abuse. 5. Osteoarthritis. 6. Peripheral vascular disease. PAST SURGICAL HISTORY: Right ankle surgery, cyst removal from tailbone, right BKA with left great and second toe removal, bilateral lower extremity common femoral endarterectomy PATIENT'S NAME: SAMIRA DAWN [facility] AGE: 56 Y [address] ROOM: [place] [address] LOCATION: GPCU ADMIT DATE: 09/15/2016 Consultation DISCHARGE DATE: FAMILY PHYSICIAN: Luistio Hector DO ATTENDING PHYSICIAN: Jeane THOMSON with bovine patch, lower leg debridements, & bilateral groin abscess removal with hemostasis control. FAMILY HISTORY: Mother positive for ovarian cancer. SOCIAL HISTORY: The patient lives at his home in [place]. He is a pack per day smoker and has done so for over 40 years. He is a daily alcohol drinker. ALLERGIES: NO KNOWN DRUG ALLERGIES. CURRENT MEDICATIONS: Pertinent to this dictation is cefazolin 2 g IV every 8 hours. Please refer to the medication administration record for further details. REVIEW OF SYSTEMS: All are negative except as mentioned above in the HPI. PHYSICAL EXAMINATION: VITAL SIGNS: Temperature 97.7, pulse 90, respirations 16, blood pressure 137/65, and pulse oximetry 99% on room air. Height 5 feet 10 inches and weight 69.9 kg. GENERAL: The patient is alert and oriented x3. HEENT: Head is normocephalic and atraumatic. NECK: Supple. CARDIOVASCULAR: Regular rate and rhythm. ABDOMEN: Flat. EXTREMITIES: Right BKA noted. Left pedal pulses thready. Left great and second toes amputated. Closed brown scab to left foot. Left heel intact. SKIN: Scrotum red. No pustules or skin denudement. Right groin periwound intact. Left periwound covered with a dressing. Right wound VAC was only running at 25 mmHg of suction, so I removed. Redness to deep groin creases. LABORATORY DATA: Wound cultures positive for Staphylococcus aureus. Blood cultures show no growth to date. CBC from October 18: White blood cells 10.8, hemoglobin 9.7, hematocrit 31.1, and platelets 417. CMS from October 11: Sodium 145, potassium 3.6, chloride 112, bicarbonate 27, BUN 13, creatinine 0.8, and glucose 102. Prealbumin 35. ASSESSMENT AND PLAN: Again, this is a 56-year-old male patient who was admitted to [facility] with right foot necrosis. He has underwent several surgical PATIENT'S NAME: SAMIRA DAWN [facility] AGE: 56 Y [address] ROOM: [facility] [place] [place], [place] [address] LOCATION: GPCU ADMIT DATE: 09/15/2016 Consultation DISCHARGE DATE: FAMILY PHYSICIAN: Luisito Hector DO ATTENDING PHYSICIAN: Jeane THOMSON procedures by Dr. Navas. He currently has wound VAC to his bilateral groins. VACs noted to be leaking over the weekend. Wet-to-dry dressing placed to left groin. Did remove right VAC due to leakage and instructed Nursing to apply wet-to-dry dressing. The [facility] RN to reapply wound VACs today. Discussed case with Keiry Baer, nurse practitioner. 1. Candidiasis intertrigo groin fold rash. We will continue with nystatin powder t.i.d. Currently, no skin denudement noted. If no improvement or breakdown, the patient may need Diflucan. We will instruct Nursing to avoid powder to his wounds but WOC RN can crust the periwound if needed during VAC changes. The fungal rash at this point appears minor, and patient is not complaining of any symptoms so we will continue with Nystatin. I instructed Nursing to apply dry cloth to folds. We will reapply the wound VACs. Unsure why they were leaking. Could possibly be a poor seal from nystatin. 2. Methicillin-sensitive Staphylococcus aureus infection. Continue cefazolin x6 weeks per ID. 3. Peripheral vascular disease. The patient is on a statin, Plavix, and Lovenox. 4. Tobacco cessation. The patient is on nicotine patch. I would like to thank Dr. Zamora for this consultation. LANDON LANDRUM APRN FOR MD SAÚL TAMAYO/naima /[id number] d: 10/23/16 1205 t: 10/23/16 1333, CONSULTATION REPORT
--- NOTE | ~2016-09-14 | CON ---
PATIENT'S NAME: SAMIRA DAWN [facility] AGE: 56 Y [address] ROOM: [id number] [place], [place] [address] LOCATION: CU ADMIT DATE: 09/15/2016 Consultation DISCHARGE DATE: FAMILY PHYSICIAN: Luisito Hector DO ATTENDING PHYSICIAN: Jeane THOMSON DATE OF CONSULTATION: 10/11/2016 REFERRING PHYSICIAN: Jeane THOMSON REASON FOR CONSULTATION: Infection after endarterectomy with bovine patch with Staph aureus. HISTORY: Mr. Dawn is a 56-year-old male with a known history of peripheral vascular disease who on 09/16 underwent bilateral femoral endarterectomy back in September. Previously, he had had a right nycbn-nuj-nlds amputation and a left great toe amputation. He had been on rehab and was on many antibiotics, but had critical limb ischemia developing and underwent OR procedure for that on 09/15. This was accompanied with bovine pericardial patch at the endarterectomy site. He subsequently had breakdown of his wounds and underwent debridement of both his BKA site and his left great toe amputation site and had abscesses in his groin; it appears evacuation of fluid more so on the left than the right, and the culture on the left is growing MSSA. He subsequently had bleeding and had to go back and this appeared to be bleeding from the abscess cavity that was cauterized and packed. There was not a mention of if this went all the way down to the vessels in the patch from what I can tell. The patient is not having fevers, chills, or sweats. He is not having pain now. He has VACs on both of his wounds. ID is asked to see and assist as his cultures are growing MSSA. He is not having cough, shortness of breath, abdominal pain, nausea, vomiting, or diarrhea. He is not eating much, however. PAST MEDICAL HISTORY: Significant for peripheral vascular disease, chronic low back pain, long- standing tobacco abuse, and alcohol abuse. PAST SURGICAL HISTORY: He had surgery to remove a cyst from his tail bone and the right BKA and a left great toe amputation. FAMILY HISTORY: Father had heart problems and in his 60s. His mom is still alive. SOCIAL HISTORY: He lives by himself in [place]. Smokes a pack-a-day for at least 30 years. PATIENT'S NAME: SAMIRA DAWN [facility] AGE: 56 Y [address] ROOM: [id number] [place], [place] [address] LOCATION: GICU ADMIT DATE: 09/15/2016 Consultation DISCHARGE DATE: FAMILY PHYSICIAN: Luisito Hector DO ATTENDING PHYSICIAN: Jeane THOMSON Drinks multiple cans of beer a day. ALLERGIES: NONE. MEDICATIONS: He is on vancomycin and Zosyn presently. REVIEW OF SYSTEMS: All remaining review of systems were otherwise reviewed with pertinent positives and negatives in the HPI. PHYSICAL EXAMINATION: GENERAL: He is sitting up in a chair. Awake, alert, oriented, not in any acute distress. He is nontoxic. VITAL SIGNS: T-max is 98.8, blood pressure 137/71, pulse 70, and respirations 15. HEENT: NC/AT. EOMI. PERRLA. There is no icterus. NECK: Supple. LUNGS: Clear to auscultation bilaterally, but decreased. HEART: Regular S1, S2. ABDOMEN: Soft and nontender. EXTREMITIES: He has a stump protector on his right BKA wound. He has an open wound on his left great toe amputation site, it has some seropurulent drainage. He has VACs on both groins. SKIN: Without rash. LABORATORY DATA: His white count is 16.6 and is trending down, hemoglobin is 9.2, and platelet count is 263. Sodium 145, potassium 3.6, chloride 112, bicarb 27, BUN 13, creatinine 0.8, and glucose is 102. Cultures from his left groin are growing MSSA, these are from 10/09. Blood cultures from 10/08 have no growth. Urine culture from 10/08 grew Enterobacter cloacae complex, but only 1 to [address] colonies. ASSESSMENT AND PLAN: 1. Infected groin after surgery for peripheral vascular disease with bovine pericardial patch placement. At this point in time, I cannot tell if the vascular patch and/or the vessel was involved, but I assume that high likelihood of that being the case. Dr. Nava had spoken with Dr. Navas who had mentioned that he felt the patient needs a long course of antibiotics, but for certainly he suggests that the concern that the vessel or the graft were involved. Given MSSA, we will plan on treating him with Ancef. Given the bleeding and concern for the patch involvement, we would keep him on 6 weeks of antibiotics intravenously PATIENT'S NAME: SAMIRA DAWN [facility] AGE: 56 Y [address] ROOM: [id number] [place], [place] [address] LOCATION: [facility] ADMIT DATE: 09/15/2016 Consultation DISCHARGE DATE: FAMILY PHYSICIAN: Luisito Hector DO ATTENDING PHYSICIAN: Jeane THOMSON and then he may need some oral for at least 6 months or longer pending on how he is doing at that time. We will switch him over to cefazolin 2 g IV q.8 hours. There is a question of whether he might have some osteomyelitis in his foot or at the stump site as well. Certainly, the long course of antibiotics would be medically indicated if that was the case. The question would be if he needs further revision of the amputation, and we will defer that to Dr. Navas. MD THERON STOCK/naima /[id number] d: t: 10/11/16 1828, CONSULTATION REPORT
--- NOTE | ~2016-09-14 | OR ---
PATIENT'S NAME: SAMIRA DAWN [facility] AGE: 56 Y [address] ROOM: [place] [address] LOCATION: [facility] ADMIT DATE: 09/15/2016 OR/Procedure Report DISCHARGE DATE: FAMILY PHYSICIAN: Luisito Hector DO ATTENDING PHYSICIAN: Jeane THOMSON SURGEON: Kraig Navas MD OCCUPATIONAL SAFETY AND HEALTH MANAGER: DATE OF PROCEDURE: 10/09/2016 PREOPERATIVE DIAGNOSES: Bilateral groin abscesses. POSTOPERATIVE DIAGNOSIS: Bilateral groin abscesses. PROCEDURE: Bilateral groin exploration and drainage of abscesses. POWER NUT RUNNER OPERATOR: MARCO ANTONIO Bush. ANESTHESIA: General. ESTIMATED BLOOD LOSS: 25 mL. OPERATIVE FINDINGS: Bilateral groins explored, murky jean-baptiste fluid expressed, culture sent, no fernanda pus seen. DESCRIPTION OF PROCEDURE: The patient was brought to the operating room, placed supine on the operating table, prepped and draped in a sterile manner. After being placed under general anesthesia, we used Bovie cautery to open up the previous common femoral endar incisions. There was a large evacuation of fluid mainly on the left and small amount on the right. The fluid did not appear to be frankly pus, but just appeared to have a murky appearance and was not foul smelling. We removed any tissue that appeared nonviable and copiously irrigated both groins with SurgiLav with antibiotic solution and then packed it with Dakin-soaked solution. The patient was transferred to the ICU for postoperative care. MD JIGNA TAMAYOM/modl /[id number] d: 10/09/16 0232 t: 10/11/16 1510, OPERATIVE SUMMARY
--- NOTE | ~2016-09-14 | CON ---
PATIENT'S NAME: SAMIRA DAWN [facility] AGE: 56 Y [address] ROOM: [place] [address] LOCATION: GPCU ADMIT DATE: 09/15/2016 Consultation DISCHARGE DATE: FAMILY PHYSICIAN: Luisito Hector DO ATTENDING PHYSICIAN: IVAN CORTES CHIEF COMPLAINT: Critical limb ischemia. HISTORY OF PRESENT ILLNESS: The patient is a 56-year-old gentleman with past medical history of hypertension, tobacco use, alcohol abuse, who presents here from inpatient rehab center for bilateral femoral endarterectomy. The patient was admitted initially to our hospital at the end of June for peripheral vascular disease complicated with infection. During his stay, the patient had right BKA and also left-sided lower extremity toe amputation. The patient's stay was complicated with infection, was on antibiotics for an extended period of time. The patient was transferred to our inpatient rehab and was receiving aggressive physical therapy. However, the patient was taken to OR today for bilateral femoral endarterectomy to further treat his critical limb ischemia. The patient tolerated the procedure well. The patient currently denies any chest pain, shortness of breath, abdominal pain, nausea, vomiting, fever, or chills. PAST MEDICAL HISTORY: Chronic critical limb ischemia, chronic lower back pain, tobacco dependent, and alcohol abuse. PAST SURGICAL HISTORY: Cyst removal from his tailbone and right ankle surgery, and also this admission right BKA and left lower extremity toe amputation. FAMILY HISTORY: Mother is alive. Father in his 60s due to heart problem. SOCIAL HISTORY: He lives by himself. He smokes one pack a day for 30 years and drinks 3 to 5 cans of beer. MEDICATIONS: Please see MAR. REVIEW OF SYSTEMS: A 10-point review of systems was evaluated, all negative except what is written on HPI. PATIENT'S NAME: SAMIRA DAWN [facility] AGE: 56 Y [address] ROOM: [place] [address] LOCATION: GPCU ADMIT DATE: 09/15/2016 Consultation DISCHARGE DATE: FAMILY PHYSICIAN: Luisito Hector DO ATTENDING PHYSICIAN: IVAN CORTES PHYSICAL EXAMINATION: VITAL SIGNS: Blood pressure 126/63, pulse of 47, respiratory rate of 18, temperature of 98. GENERAL APPEARANCE: The patient is sitting up on the bed, in no acute distress. HEAD: Atraumatic, normocephalic. EYES: Extraocular muscle intact. Sclerae anicteric. NOSE: No nasal discharge. NECK: No JVD. Supple. LUNGS: Clear to auscultation. No rales, wheezing, or rhonchi. HEART: Regular rate and rhythm. No murmurs, rubs, or gallops. ABDOMEN: Soft, nontender, nondistended. Bowel sounds present. ROUTE SERVICE REPRESENTATIVE: The patient is alert and oriented. Motor and sensory grossly intact. MUSCULOSKELETAL: Range of motion intact. Right's BKA dressing is clean, dry, and intact. Left foot dressing is clean, dry, and intact. Groin shows bilateral dressing clean, dry, and intact. SKIN: Lower extremity peripheral vascular disease changes. Warm to touch. LABORATORY DATA: Last lab done on 09/13/2016 shows hemoglobin of 10.9, hematocrit of 34.9, platelets 314. Creatinine of 1.1 and BUN of 25. ASSESSMENT AND PLAN: The patient is a 56-year-old gentleman with past medical history of tobacco use and alcohol abuse with recent history of critical limb ischemia complicated with infection, status post right BKA and left foot toe amputation, who is here for vascular study with bilateral femoral endarterectomy, status post bilateral femoral endarterectomy, postoperative day 0, the patient tolerated procedure well. 1. Critical limb ischemia, status post bilateral endarterectomy. Continue antiplatelets and Lipitor. The patient currently is not smoking. Discussed with patient about smoking cessation. 2. Hypertension, stable. 3. Gout. Continue allopurinol. 4. Hyperlipidemia. Continue Lipitor. 5. Neuropathy. Continue gabapentin. 6. Tobacco use. Discussed about cessation. 7. Alcohol abuse. He has not had any alcohol his admission since June and has not shown any signs of withdrawn. Thank you for involving us in the care of this patient. ALIX FERGUSON MD PATIENT'S NAME: SAMIRA DAWN [facility] AGE: 56 Y [address] ROOM: [place] [address] [facility] ADMIT DATE: 09/15/2016 Consultation DISCHARGE DATE: FAMILY PHYSICIAN: Luisito Hector DO ATTENDING PHYSICIAN: IVAN CORTES AD/efrainl /[id number] d: 09/16/16 0124 t: 09/16/16 1805, CONSULTATION REPORT
--- NOTE | ~2016-09-14 | CON ---
PATIENT'S NAME: SAMIRA DAWN [facility] AGE: 56 Y [address] ROOM: [place] [address] [facility] ADMIT DATE: 09/15/2016 Consultation DISCHARGE DATE: FAMILY PHYSICIAN: Luisito Hector DO ATTENDING PHYSICIAN: Jeane THOMSON DATE OF CONSULTATION: 10/23/2016 REFERRING PHYSICIAN: Arnulfo Zamora MD REASON FOR VISIT: Groin rash and antibiotic management. HISTORY OF PRESENT ILLNESS: This is a 56-year-old male patient who was admitted to [facility] back in June with a right necrotic foot. I saw him on July 07, but was asked to re-consult for a groin rash and antibiotic management. The patient has a significant history of peripheral vascular disease, hypertension, tobacco use, osteoarthritis, and alcohol abuse. At the end of June, he underwent a right BKA. He was recovering on the inpatient rehab unit on IV antibiotic therapy but developed critical limb ischemia. He subsequently underwent a bilateral lower extremity common femoral endarterectomy with bovine patch on September 15. At the end of September, the patient had bilateral lower leg debridements. On October 09, he suffered from groin abscess bleeding. He has had wound VAC therapy to bilateral groins. Nursing has struggled over the weekend to keep a seal, so they applied a wet- to-dry dressing to his left groin. The patient is currently on cefazolin x6 weeks for an MSSA infection. The patient is rating his groin pain an 8/10. He is denying groin pruritus. No skin denudement. He was started on nystatin powder t.i.d. last Sunday. He reports a fair oral intake. He denies chest pain or shortness of breath. He is afebrile. PAST MEDICAL HISTORY: 1. Essential hypertension. 2. Chronic lower back pain. 3. Tobacco dependence. 4. Alcohol abuse. 5. Osteoarthritis. 6. Peripheral vascular disease. PAST SURGICAL HISTORY: Right ankle surgery, cyst removal from tailbone, right BKA with left great and second toe removal, bilateral lower extremity common femoral endarterectomy PATIENT'S NAME: SAMIRA DAWN [facility] AGE: 56 Y [address] ROOM: [place] [address] LOCATION: GPCU ADMIT DATE: 09/15/2016 Consultation DISCHARGE DATE: FAMILY PHYSICIAN: Luisito Hector DO ATTENDING PHYSICIAN: Jeane THOMSON with bovine patch, lower leg debridements, & bilateral groin abscess removal with hemostasis control. FAMILY HISTORY: Mother positive for ovarian cancer. SOCIAL HISTORY: The patient lives at his home in [place]. He is a pack per day smoker and has done so for over 40 years. He is a daily alcohol drinker. ALLERGIES: NO KNOWN DRUG ALLERGIES. CURRENT MEDICATIONS: Pertinent to this dictation is cefazolin 2 g IV every 8 hours. Please refer to the medication administration record for further details. REVIEW OF SYSTEMS: All are negative except as mentioned above in the HPI. PHYSICAL EXAMINATION: VITAL SIGNS: Temperature 97.7, pulse 90, respirations 16, blood pressure 137/65, and pulse oximetry 99% on room air. Height 5 feet 10 inches and weight 69.9 kg. GENERAL: The patient is alert and oriented x3. HEENT: Head is normocephalic and atraumatic. NECK: Supple. CARDIOVASCULAR: Regular rate and rhythm. ABDOMEN: Flat. EXTREMITIES: Right BKA noted. Left pedal pulses thready. Left great and second toes amputated. Closed brown scab to left foot. Left heel intact. SKIN: Scrotum red. No pustules or skin denudement. Right groin periwound intact. Left periwound covered with a dressing. Right wound VAC was only running at 25 mmHg of suction, so I removed. Redness to deep groin creases. LABORATORY DATA: Wound cultures positive for Staphylococcus aureus. Blood cultures show no growth to date. CBC from October 18: White blood cells 10.8, hemoglobin 9.7, hematocrit 31.1, and platelets 417. CMS from October 11: Sodium 145, potassium 3.6, chloride 112, bicarbonate 27, BUN 13, creatinine 0.8, and glucose 102. Prealbumin 35. ASSESSMENT AND PLAN: Again, this is a 56-year-old male patient who was admitted to [facility] with right foot necrosis. He has underwent several surgical PATIENT'S NAME: SAMIRA DAWN [facility] AGE: 56 Y [address] ROOM: [facility] [place], [place] [address] LOCATION: GPCU ADMIT DATE: 09/15/2016 Consultation DISCHARGE DATE: FAMILY PHYSICIAN: Luisito Hector DO ATTENDING PHYSICIAN: Jeane THOMSON procedures by Dr. Navas. He currently has wound VAC to his bilateral groins. VACs noted to be leaking over the weekend. Wet-to-dry dressing placed to left groin. Did remove right VAC due to leakage and instructed Nursing to apply wet-to-dry dressing. The [facility] RN to reapply wound VACs today. Discussed case with Keiry Baer, nurse practitioner. 1. Candidiasis intertrigo groin fold rash. We will continue with nystatin powder t.i.d. Currently, no skin denudement noted. If no improvement or breakdown, the patient may need Diflucan. We will instruct Nursing to avoid powder to his wounds but [facility]OC RN can crust the periwound if needed during VAC changes. The fungal rash at this point appears minor, and patient is not complaining of any symptoms so we will continue with Nystatin. I instructed Nursing to apply dry cloth to folds. We will reapply the wound VACs. Unsure why they were leaking. Could possibly be a poor seal from nystatin. 2. Methicillin-sensitive Staphylococcus aureus infection. Continue cefazolin x6 weeks per ID. 3. Peripheral vascular disease. The patient is on a statin, Plavix, and Lovenox. 4. Tobacco cessation. The patient is on nicotine patch. I would like to thank Dr. Zamora for this consultation. LANDON LANDRUM APRN FOR MD SAÚL TAMAYO/naima /[id number] d: 10/23/16 1205 t: 11/24/16 1014, CONSULTATION REPORT
--- NOTE | ~2016-09-14 | CON ---
PATIENT'S NAME: SAMIRA DAWN [facility] AGE: 56 Y [address] ROOM: [place] [address] LOCATION: [facility] ADMIT DATE: 09/15/2016 Consultation DISCHARGE DATE: FAMILY PHYSICIAN: Luisito Hector DO ATTENDING PHYSICIAN: IVAN CORTES REFERRING PHYSICIAN: Jeane Zavala consult for Marlo Viveros, physician assistant spa manager. HISTORY OF PRESENT ILLNESS: This is a 56-year-old whom I know from previous care. He is referred for rehab evaluation, status post bilateral common femoral artery endarterectomies on 09/15/2016, details on record. He is known to be a right below-knee amputation, and he can use it with the prosthesis very well. He was on rehab unit from 07/13/2016 until 09/15/2016 and underwent intensive rehab. By the time he went to have his bilateral common femoral artery endarterectomies on 09/15, he was walking 60 feet x2 with rest in between. PAST MEDICAL HISTORY: 1. Gout. 2. Neuropathy. 3. Dyslipidemia. 4. Peripheral arterial disease. 5. Right foot first and second toe amputations. He has also history of extensive tobacco and alcohol use. PHYSICAL EXAMINATION: GENERAL: At the present time, alert, oriented. VITAL SIGNS: Blood pressure 111/70, temperature 99.8 to 98.0, pulse 93, and respiration rate 20. He is 5 feet 10 inches tall and weighs 74.1 kg. NEUROLOGIC: He is neurologically intact, able to control his bowel and bladder. At this time, he is able to ambulate at least 30 feet x1 with front-wheeled walker, contact guard assistance. MEDICATIONS: He is on the following medications: 1. Hydrocortisone. 2. Albuterol. 3. Lipitor. PATIENT'S NAME: SAMIRA DAWN [facility] AGE: 56 Y [address] ROOM: [place] [address] LOCATION: [facility] ADMIT DATE: 09/15/2016 Consultation DISCHARGE DATE: FAMILY PHYSICIAN: Luisito Hector DO ATTENDING PHYSICIAN: IVAN CORTES 4. Allopurinol. 5. Nicotine. 6. Milk of magnesia. 7. Florastor. 8. Neurontin. 9. Plavix. 10. Lovenox. 11. NaCl 0.9%. 12. Benadryl. 13. Zofran. 14. Tylenol. 15. Colace. 16. [place]. 17. Morphine sulfate. 18. Nitroglycerin. ASSESSMENT AND PLAN: I feel this gentleman had an excellent intensive rehab. At the present time, he can go on an outpatient basis and do outpatient therapy. I did discuss with him, and I might add here that I did do a complete form for Medicaid/Medicare while he was on our unit. However, at the present time, I feel that he has achieved what he could achieve in an acute intensive rehab. I will continue to follow alongside with you. All the above was discussed with him. He verbalized understanding and agreement. Thank you for this referral. MD KADEN ORONA/modl /[id number] d: 09/23/16 1224 t: 09/24/16 1006, CONSULTATION REPORT
[2016-09-16 05:54] LABS: BLOOD UREA NITROGEN 18 mg/dL (6-24); CALCIUM 8.3 mg/dL (8.5-10.5); CHLORIDE 106 mMol/L (96-110); CO2 28 mMol/L (22-32); CREATININE 0.9 mg/dL (0.6-1.3); ESTIMATED GFR (MDRD EQUATION) > 60; SODIUM 141 mMol/L (135-145)
[2016-09-16 06:34] LABS: BASOPHIL # 0.1 K/uL (0.0-0.2); BASOPHIL % 0.3 %; EOSINOPHIL % 0.2 %; HEMATOCRIT 30.3 % (37.0-53.0); HEMOGLOBIN 9.5 g/dL (12.0-17.0); IMMATURE GRANULOCYTE % 0.2 %; LYMPHOCYTE # 3.1 K/uL (0.8-4.0); MCH 27.1 pg (27.0-34.0); MCHC 31.4 gm/dL (32.0-36.5); MCV 86.3 fl (83.0-98.0); MONOCYTE # 2.1 K/uL (0.0-1.0); MONOCYTE % 14.5 %; MPV 10.3 fl (9.4-12.4); NEUTROPHIL # (ANC) 9.2 K/uL (1.4-9.0); NEUTROPHIL % 63.8 %; NRBC % 0 /100WBC (0-0.00); PLATELET COUNT 263 K/uL (150-450); RBC 3.51 M/uL (4.00-6.00); WBC 14.5 K/uL (4.0-11.0)
[2016-09-17 06:02] LABS: BASOPHIL # 0.1 K/uL (0.0-0.2); BASOPHIL % 0.5 %; EOSINOPHIL # 0.2 K/uL (0.0-0.5); HEMATOCRIT 30.7 % (37.0-53.0); HEMOGLOBIN 9.8 g/dL (12.0-17.0); IMMATURE GRANULOCYTE # 0.1 K/uL (0.0-0.3); IMMATURE GRANULOCYTE % 0.3 %; LYMPHOCYTE % 15.8 %; MCH 27.5 pg (27.0-34.0); MCHC 31.9 gm/dL (32.0-36.5); MCV 86.2 fl (83.0-98.0); MPV 10.4 fl (9.4-12.4); NEUTROPHIL # (ANC) 12.5 K/uL (1.4-9.0); NEUTROPHIL % 66.4 %; NRBC % 0 /100WBC (0-0.00); PLATELET COUNT 264 K/uL (150-450); RBC 3.56 M/uL (4.00-6.00); RDW-CV 16.3 % (11.9-14.6)
[2016-09-17 06:05] LABS: WBC 18.8 K/uL (4.0-11.0)
[2016-09-17 06:17] LABS: ANION GAP 13.2 (10.0-19.0); BLOOD UREA NITROGEN 12 mg/dL (6-24); CALCIUM 8.9 mg/dL (8.5-10.5); CHLORIDE 103 mMol/L (96-110); CO2 26 mMol/L (22-32); CREATININE 0.7 mg/dL (0.6-1.3); ESTIMATED GFR (MDRD EQUATION) > 60; POTASSIUM 4.2 mMol/L (3.7-5.1); SODIUM 138 mMol/L (135-145)
[2016-09-17 17:11] LABS: BILIRUBIN URINE NEGATIVE (NEGATIVE); BLOOD URINE NEGATIVE /UL (NEGATIVE); GLUCOSE URINE NEGATIVE (NEGATIVE); KETONE URINE NEGATIVE (NEGATIVE); LEUKOCYTES URINE NEGATIVE /UL (NEGATIVE); NITRITE URINE NEGATIVE (NEGATIVE); PROTEIN URINE NEGATIVE (NEGATIVE); UROBILINOGEN URINE NORMAL (NORMAL)
[2016-09-17 17:14] LABS: COLOR URINE YELLOW (YELLOW); TURBIDITY URINE CLEAR (CLEAR)
[2016-09-18 03:54] LABS: BASOPHIL # 0.1 K/uL (0.0-0.2); BASOPHIL % 0.4 %; EOSINOPHIL # 0.3 K/uL (0.0-0.5); EOSINOPHIL % 1.7 %; HEMATOCRIT 30.1 % (37.0-53.0); HEMOGLOBIN 9.6 g/dL (12.0-17.0); IMMATURE GRANULOCYTE # 0.1 K/uL (0.0-0.3); IMMATURE GRANULOCYTE % 0.4 %; LYMPHOCYTE # 2.2 K/uL (0.8-4.0); LYMPHOCYTE % 12.1 %; MCH 27.2 pg (27.0-34.0); MCHC 31.9 gm/dL (32.0-36.5); MCV 85.3 fl (83.0-98.0); MONOCYTE # 3.1 K/uL (0.0-1.0); MONOCYTE % 17.2 %; MPV 10.3 fl (9.4-12.4); NEUTROPHIL # (ANC) 12.4 K/uL (1.4-9.0); NEUTROPHIL % 68.2 %; NRBC % 0 /100WBC (0-0.00); PLATELET COUNT 268 K/uL (150-450); RBC 3.53 M/uL (4.00-6.00); RDW-CV 16.3 % (11.9-14.6); WBC 18.1 K/uL (4.0-11.0)
[2016-09-18 04:04] LABS: ANION GAP 12.9 (10.0-19.0); BLOOD UREA NITROGEN 14 mg/dL (6-24); CALCIUM 8.8 mg/dL (8.5-10.5); CHLORIDE 103 mMol/L (96-110); CO2 28 mMol/L (22-32); CREATININE 0.8 mg/dL (0.6-1.3); ESTIMATED GFR (MDRD EQUATION) > 60; MAGNESIUM 2.1 mg/dL (1.3-2.6); POTASSIUM 3.9 mMol/L (3.7-5.1); SODIUM 140 mMol/L (135-145)
[2016-09-19 05:54] LABS: BASOPHIL # 0.1 K/uL (0.0-0.2); BASOPHIL % 0.7 %; EOSINOPHIL # 0.6 K/uL (0.0-0.5); EOSINOPHIL % 4.5 %; HEMATOCRIT 30.1 % (37.0-53.0); HEMOGLOBIN 9.4 g/dL (12.0-17.0); IMMATURE GRANULOCYTE # 0.1 K/uL (0.0-0.3); IMMATURE GRANULOCYTE % 0.4 %; LYMPHOCYTE # 2.2 K/uL (0.8-4.0); LYMPHOCYTE % 15.9 %; MCH 27.2 pg (27.0-34.0); MCHC 31.2 gm/dL (32.0-36.5); MCV 87.2 fl (83.0-98.0); MONOCYTE # 2.5 K/uL (0.0-1.0); MONOCYTE % 17.8 %; MPV 10.2 fl (9.4-12.4); NEUTROPHIL # (ANC) 8.5 K/uL (1.4-9.0); NEUTROPHIL % 60.7 %; NRBC % 0 /100WBC (0-0.00); PLATELET COUNT 285 K/uL (150-450); RBC 3.45 M/uL (4.00-6.00); RDW-CV 16.3 % (11.9-14.6)
[2016-09-19 06:10] LABS: ANION GAP 11.9 (10.0-19.0); BLOOD UREA NITROGEN 16 mg/dL (6-24); CALCIUM 8.9 mg/dL (8.5-10.5); CHLORIDE 104 mMol/L (96-110); CO2 25 mMol/L (22-32); CREATININE 0.7 mg/dL (0.6-1.3); ESTIMATED GFR (MDRD EQUATION) > 60; POTASSIUM 3.9 mMol/L (3.7-5.1); SODIUM 137 mMol/L (135-145)
[2016-09-20 04:01] LABS: BASOPHIL # 0.1 K/uL (0.0-0.2); BASOPHIL % 0.7 %; EOSINOPHIL # 0.6 K/uL (0.0-0.5); EOSINOPHIL % 4.7 %; HEMATOCRIT 29.1 % (37.0-53.0); HEMOGLOBIN 9.2 g/dL (12.0-17.0); IMMATURE GRANULOCYTE # 0.1 K/uL (0.0-0.3); IMMATURE GRANULOCYTE % 0.4 %; LYMPHOCYTE # 1.8 K/uL (0.8-4.0); LYMPHOCYTE % 14.5 %; MCH 27.1 pg (27.0-34.0); MCHC 31.6 gm/dL (32.0-36.5); MCV 85.8 fl (83.0-98.0); MONOCYTE # 2.2 K/uL (0.0-1.0); MONOCYTE % 17.2 %; MPV 10.3 fl (9.4-12.4); NEUTROPHIL # (ANC) 7.9 K/uL (1.4-9.0); NEUTROPHIL % 62.5 %; NRBC % 0 /100WBC (0-0.00); PLATELET COUNT 341 K/uL (150-450); RBC 3.39 M/uL (4.00-6.00); RDW-CV 15.9 % (11.9-14.6); WBC 12.7 K/uL (4.0-11.0)
[2016-09-20 04:15] LABS: ANION GAP 12.9 (10.0-19.0); BLOOD UREA NITROGEN 18 mg/dL (6-24); CALCIUM 8.7 mg/dL (8.5-10.5); CHLORIDE 102 mMol/L (96-110); CO2 28 mMol/L (22-32); CREATININE 0.8 mg/dL (0.6-1.3); ESTIMATED GFR (MDRD EQUATION) > 60; POTASSIUM 3.9 mMol/L (3.7-5.1); SODIUM 139 mMol/L (135-145)
[2016-09-21 05:37] LABS: BASOPHIL # 0.1 K/uL (0.0-0.2); BASOPHIL % 0.8 %; EOSINOPHIL # 0.7 K/uL (0.0-0.5); EOSINOPHIL % 6.5 %; HEMATOCRIT 30.7 % (37.0-53.0); HEMOGLOBIN 9.8 g/dL (12.0-17.0); IMMATURE GRANULOCYTE % 0.3 %; LYMPHOCYTE # 1.9 K/uL (0.8-4.0); LYMPHOCYTE % 17.3 %; MCH 27.1 pg (27.0-34.0); MCHC 31.9 gm/dL (32.0-36.5); MCV 84.8 fl (83.0-98.0); MONOCYTE # 1.7 K/uL (0.0-1.0); MONOCYTE % 15.2 %; MPV 10.1 fl (9.4-12.4); NEUTROPHIL # (ANC) 6.5 K/uL (1.4-9.0); NEUTROPHIL % 59.9 %; NRBC % 0 /100WBC (0-0.00); PLATELET COUNT 378 K/uL (150-450); RBC 3.62 M/uL (4.00-6.00); RDW-CV 15.7 % (11.9-14.6); WBC 10.9 K/uL (4.0-11.0)
[2016-09-22 05:20] LABS: BASOPHIL # 0.1 K/uL (0.0-0.2); BASOPHIL % 1.2 %; EOSINOPHIL # 0.8 K/uL (0.0-0.5); EOSINOPHIL % 7.4 %; HEMATOCRIT 30.8 % (37.0-53.0); HEMOGLOBIN 9.8 g/dL (12.0-17.0); IMMATURE GRANULOCYTE % 0.3 %; LYMPHOCYTE # 1.9 K/uL (0.8-4.0); LYMPHOCYTE % 18.1 %; MCH 26.9 pg (27.0-34.0); MCHC 31.8 gm/dL (32.0-36.5); MCV 84.6 fl (83.0-98.0); MONOCYTE # 1.6 K/uL (0.0-1.0); MONOCYTE % 14.7 %; MPV 9.6 fl (9.4-12.4); NEUTROPHIL # (ANC) 6.2 K/uL (1.4-9.0); NEUTROPHIL % 58.3 %; NRBC % 0 /100WBC (0-0.00); PLATELET COUNT 430 K/uL (150-450); RBC 3.64 M/uL (4.00-6.00); RDW-CV 15.5 % (11.9-14.6); WBC 10.6 K/uL (4.0-11.0)
[2016-09-23 06:15] LABS: BASOPHIL # 0.1 K/uL (0.0-0.2); BASOPHIL % 1.2 %; EOSINOPHIL # 0.3 K/uL (0.0-0.5); EOSINOPHIL % 3.7 %; HEMATOCRIT 34.6 % (37.0-53.0); HEMOGLOBIN 11.1 g/dL (12.0-17.0); IMMATURE GRANULOCYTE % 0.2 %; LYMPHOCYTE # 1.5 K/uL (0.8-4.0); LYMPHOCYTE % 16.2 %; MCH 27.1 pg (27.0-34.0); MCHC 32.1 gm/dL (32.0-36.5); MCV 84.6 fl (83.0-98.0); MONOCYTE # 1.4 K/uL (0.0-1.0); MONOCYTE % 14.7 %; MPV 9.4 fl (9.4-12.4); NEUTROPHIL # (ANC) 5.9 K/uL (1.4-9.0); NRBC % 0 /100WBC (0-0.00); PLATELET COUNT 462 K/uL (150-450); RBC 4.09 M/uL (4.00-6.00); RDW-CV 15.8 % (11.9-14.6); WBC 9.2 K/uL (4.0-11.0)
[2016-09-25 05:56] LABS: HEMATOCRIT 31.3 % (37.0-53.0); HEMOGLOBIN 9.9 g/dL (12.0-17.0); MCHC 31.6 gm/dL (32.0-36.5); MCV 85.3 fl (83.0-98.0); MPV 9.1 fl (9.4-12.4); PLATELET COUNT 476 K/uL (150-450); RBC 3.67 M/uL (4.00-6.00); RDW-CV 15.8 % (11.9-14.6); WBC 7.9 K/uL (4.0-11.0)
[2016-09-25 06:10] LABS: ANION GAP 9.9 (10.0-19.0); BLOOD UREA NITROGEN 16 mg/dL (6-24); CALCIUM 8.9 mg/dL (8.5-10.5); CHLORIDE 102 mMol/L (96-110); CO2 29 mMol/L (22-32); CREATININE 0.8 mg/dL (0.6-1.3); ESTIMATED GFR (MDRD EQUATION) > 60; POTASSIUM 3.9 mMol/L (3.7-5.1); SODIUM 137 mMol/L (135-145)
[2016-09-25 07:06] LABS: ABSOLUTE NEUTROPHIL CT (ANC) 4.3 K/uL (1.4-9.0); BANDED NEUTROPHIL # 0.2 K/uL (0.0-0.1); BANDED NEUTROPHILS % 2 %; LYMPHOCYTE # 1.3 K/uL (0.8-4.0); LYMPHOCYTE % 16 %; MONOCYTE # 1.9 K/uL (0.0-1.0); SEGMENTED NEUTROPHIL # 4.1 K/uL (1.4-9.0); SEGMENTED NEUTROPHIL % 52 %
[2016-10-02 05:32] LABS: HEMATOCRIT 30.7 % (37.0-53.0); HEMOGLOBIN 9.5 g/dL (12.0-17.0); MCH 26.4 pg (27.0-34.0); MCHC 30.9 gm/dL (32.0-36.5); MCV 85.3 fl (83.0-98.0); MPV 9.8 fl (9.4-12.4); RDW-CV 15.3 % (11.9-14.6); WBC 7.7 K/uL (4.0-11.0)
[2016-10-02 05:35] LABS: PLATELET COUNT 611 K/uL (150-450)
[2016-10-02 05:48] LABS: ALBUMIN 3.2 gm/dL (3.5-5.0); ANION GAP 10.2 (10.0-19.0); BLOOD UREA NITROGEN 22 mg/dL (6-24); CHLORIDE 103 mMol/L (96-110); CO2 30 mMol/L (22-32); CREATININE 0.8 mg/dL (0.6-1.3); ESTIMATED GFR (MDRD EQUATION) > 60; MAGNESIUM 2.1 mg/dL (1.8-2.6); PHOSPHORUS 4.2 mg/dL (2.5-4.9); POTASSIUM 4.2 mMol/L (3.7-5.1); SODIUM 139 mMol/L (135-145)
[2016-10-02 06:18] LABS: ABSOLUTE NEUTROPHIL CT (ANC) 3.5 K/uL (1.4-9.0); BANDED NEUTROPHIL # 0.8 K/uL (0.0-0.1); BANDED NEUTROPHILS % 11 %; LYMPHOCYTE # 2.5 K/uL (0.8-4.0); LYMPHOCYTE % 32 %; SEGMENTED NEUTROPHIL # 2.6 K/uL (1.4-9.0); SEGMENTED NEUTROPHIL % 34 %
[2016-10-04 04:15] LABS: BASOPHIL # 0.1 K/uL (0.0-0.2); BASOPHIL % 0.9 %; EOSINOPHIL # 0.5 K/uL (0.0-0.5); EOSINOPHIL % 5.3 %; HEMATOCRIT 30.6 % (37.0-53.0); HEMOGLOBIN 9.5 g/dL (12.0-17.0); IMMATURE GRANULOCYTE % 0.3 %; LYMPHOCYTE # 1.5 K/uL (0.8-4.0); LYMPHOCYTE % 14.6 %; MCH 26.3 pg (27.0-34.0); MCV 84.8 fl (83.0-98.0); MONOCYTE # 1.4 K/uL (0.0-1.0); MONOCYTE % 13.7 %; MPV 9.8 fl (9.4-12.4); NEUTROPHIL # (ANC) 6.6 K/uL (1.4-9.0); NEUTROPHIL % 65.2 %; NRBC % 0 /100WBC (0-0.00); PLATELET COUNT 628 K/uL (150-450); RBC 3.61 M/uL (4.00-6.00); RDW-CV 15.5 % (11.9-14.6)
[2016-10-04 04:28] LABS: ANION GAP 13.3 (10.0-19.0); BLOOD UREA NITROGEN 26 mg/dL (6-24); CALCIUM 8.9 mg/dL (8.5-10.5); CHLORIDE 106 mMol/L (96-110); CO2 25 mMol/L (22-32); CREATININE 0.8 mg/dL (0.6-1.3); ESTIMATED GFR (MDRD EQUATION) > 60; POTASSIUM 4.3 mMol/L (3.7-5.1); SODIUM 140 mMol/L (135-145)
[2016-10-08 13:55] LABS: HEMATOCRIT 30.4 % (37.0-53.0); HEMOGLOBIN 9.5 g/dL (12.0-17.0); MCH 26.5 pg (27.0-34.0); MCHC 31.3 gm/dL (32.0-36.5); MCV 84.9 fl (83.0-98.0); MPV 10.1 fl (9.4-12.4); PLATELET COUNT 503 K/uL (150-450); RBC 3.58 M/uL (4.00-6.00); RDW-CV 16.3 % (11.9-14.6)
[2016-10-08 14:24] LABS: BILIRUBIN URINE NEGATIVE (NEGATIVE); BLOOD URINE NEGATIVE /UL (NEGATIVE); COLOR URINE YELLOW (YELLOW); GLUCOSE URINE NEGATIVE (NEGATIVE); KETONE URINE NEGATIVE (NEGATIVE); LEUKOCYTES URINE NEGATIVE /UL (NEGATIVE); NITRITE URINE NEGATIVE (NEGATIVE); PROTEIN URINE NEGATIVE (NEGATIVE); SPEC GRAVITY URINE 1.015 (1.003-1.035); TURBIDITY URINE CLEAR (CLEAR); UROBILINOGEN URINE NORMAL (NORMAL)
[2016-10-08 14:31] LABS: ABSOLUTE NEUTROPHIL CT (ANC) 21.6 K/uL (1.4-9.0); BANDED NEUTROPHIL # 2.8 K/uL (0.0-0.1); BANDED NEUTROPHILS % 10 %; LYMPHOCYTE # 2.2 K/uL (0.8-4.0); LYMPHOCYTE % 8 %; MONOCYTE # 3.9 K/uL (0.0-1.0); SEGMENTED NEUTROPHIL # 18.8 K/uL (1.4-9.0); SEGMENTED NEUTROPHIL % 67 %
[2016-10-08 22:04] LABS: BLOOD UREA NITROGEN 19 mg/dL (6-24); CALCIUM 8.8 mg/dL (8.5-10.5); CHLORIDE 103 mMol/L (96-110); CO2 25 mMol/L (22-32); CREATININE 1.1 mg/dL (0.6-1.3); SODIUM 139 mMol/L (135-145)
[2016-10-08 22:06] LABS: ESTIMATED GFR (MDRD EQUATION) > 60
[2016-10-09 03:05] LABS: HEMATOCRIT 24.9 % (37.0-53.0); MCV 86.2 fl (83.0-98.0); MPV 10.1 fl (9.4-12.4); RBC 2.89 M/uL (4.00-6.00); RDW-CV 16.6 % (11.9-14.6)
[2016-10-09 03:07] LABS: HEMOGLOBIN 7.8 g/dL (12.0-17.0); MCHC 31.3 gm/dL (32.0-36.5); PLATELET COUNT 310 K/uL (150-450); WBC 42.1 K/uL (4.0-11.0)
[2016-10-09 03:33] LABS: ABSOLUTE NEUTROPHIL CT (ANC) 34.9 K/uL (1.4-9.0); BANDED NEUTROPHIL # 2.5 K/uL (0.0-0.1); BANDED NEUTROPHILS % 6 %; LYMPHOCYTE # 2.5 K/uL (0.8-4.0); LYMPHOCYTE % 6 %; MONOCYTE # 4.2 K/uL (0.0-1.0); SEGMENTED NEUTROPHIL # 32.4 K/uL (1.4-9.0); SEGMENTED NEUTROPHIL % 77 %
[2016-10-09 05:18] LABS: HEMATOCRIT 24.4 % (37.0-53.0); MCH 27.2 pg (27.0-34.0); MCHC 31.6 gm/dL (32.0-36.5); MCV 86.2 fl (83.0-98.0); MPV 10.4 fl (9.4-12.4); PLATELET COUNT 322 K/uL (150-450); RBC 2.83 M/uL (4.00-6.00); RDW-CV 16.7 % (11.9-14.6)
[2016-10-09 05:24] LABS: HEMOGLOBIN 7.7 g/dL (12.0-17.0); WBC 43.8 K/uL (4.0-11.0)
[2016-10-09 05:37] LABS: ANION GAP 14.1 (10.0-19.0); BLOOD UREA NITROGEN 15 mg/dL (6-24); CALCIUM 7.5 mg/dL (8.5-10.5); CHLORIDE 114 mMol/L (96-110); CO2 18 mMol/L (22-32); CREATININE 0.9 mg/dL (0.6-1.3); ESTIMATED GFR (MDRD EQUATION) > 60; MAGNESIUM 1.7 mg/dL (1.8-2.6); POTASSIUM 4.1 mMol/L (3.7-5.1); SODIUM 142 mMol/L (135-145)
[2016-10-09 06:22] LABS: ABSOLUTE NEUTROPHIL CT (ANC) 37.7 K/uL (1.4-9.0); BANDED NEUTROPHIL # 3.9 K/uL (0.0-0.1); BANDED NEUTROPHILS % 9 %; LYMPHOCYTE # 3.1 K/uL (0.8-4.0); LYMPHOCYTE % 7 %; MONOCYTE # 3.1 K/uL (0.0-1.0); SEGMENTED NEUTROPHIL # 33.7 K/uL (1.4-9.0); SEGMENTED NEUTROPHIL % 77 %
[2016-10-10 04:37] LABS: HEMOGLOBIN 9.3 g/dL (12.0-17.0); MCHC 31.6 gm/dL (32.0-36.5); MCV 85.5 fl (83.0-98.0); MPV 10.7 fl (9.4-12.4); PLATELET COUNT 268 K/uL (150-450); RBC 3.44 M/uL (4.00-6.00); RDW-CV 16.8 % (11.9-14.6)
[2016-10-10 04:41] LABS: HEMATOCRIT 29.4 % (37.0-53.0); WBC 25.8 K/uL (4.0-11.0)
[2016-10-10 04:59] LABS: ALBUMIN 2.5 gm/dL (3.5-5.0); ALK PHOS 90 IU/L (33-138); ALT 34 IU/L (12-78); ANION GAP 11.7 (10.0-19.0); AST 76 IU/L (10-40); BLOOD UREA NITROGEN 11 mg/dL (6-24); CALCIUM 8.2 mg/dL (8.5-10.5); CHLORIDE 112 mMol/L (96-110); CO2 23 mMol/L (22-32); CREATININE 0.8 mg/dL (0.6-1.3); ESTIMATED GFR (MDRD EQUATION) > 60; POTASSIUM 3.7 mMol/L (3.7-5.1); SODIUM 143 mMol/L (135-145); TOTAL PROTEIN 6.4 g/dL (6.0-8.4)
[2016-10-10 05:00] LABS: TOTAL BILIRUBIN 0.4 mg/dL (0.0-1.5)
[2016-10-10 05:25] LABS: ABSOLUTE NEUTROPHIL CT (ANC) 20.9 K/uL (1.4-9.0); BANDED NEUTROPHIL # 3.6 K/uL (0.0-0.1); BANDED NEUTROPHILS % 14 %; LYMPHOCYTE # 3.1 K/uL (0.8-4.0); LYMPHOCYTE % 12 %; MONOCYTE # 0.8 K/uL (0.0-1.0); SEGMENTED NEUTROPHIL # 17.3 K/uL (1.4-9.0); SEGMENTED NEUTROPHIL % 67 %
[2016-10-11 03:55] LABS: BASOPHIL # 0.1 K/uL (0.0-0.2); BASOPHIL % 0.5 %; EOSINOPHIL # 0.3 K/uL (0.0-0.5); EOSINOPHIL % 1.8 %; HEMATOCRIT 28.9 % (37.0-53.0); HEMOGLOBIN 9.2 g/dL (12.0-17.0); IMMATURE GRANULOCYTE # 0.1 K/uL (0.0-0.3); IMMATURE GRANULOCYTE % 0.5 %; LYMPHOCYTE # 1.4 K/uL (0.8-4.0); LYMPHOCYTE % 8.1 %; MCHC 31.8 gm/dL (32.0-36.5); MCV 84.8 fl (83.0-98.0); MONOCYTE # 1.6 K/uL (0.0-1.0); MONOCYTE % 9.4 %; MPV 10.4 fl (9.4-12.4); NEUTROPHIL # (ANC) 13.2 K/uL (1.4-9.0); NEUTROPHIL % 79.7 %; NRBC % 0 /100WBC (0-0.00); PLATELET COUNT 263 K/uL (150-450); RBC 3.41 M/uL (4.00-6.00); RDW-CV 16.9 % (11.9-14.6)
[2016-10-11 04:03] LABS: WBC 16.6 K/uL (4.0-11.0)
[2016-10-11 04:21] LABS: ALBUMIN 2.5 gm/dL (3.5-5.0); ALK PHOS 97 IU/L (33-138); ALT 31 IU/L (12-78); ANION GAP 9.6 (10.0-19.0); AST 44 IU/L (10-40); BLOOD UREA NITROGEN 13 mg/dL (6-24); CALCIUM 8.3 mg/dL (8.5-10.5); CHLORIDE 112 mMol/L (96-110); CO2 27 mMol/L (22-32); CREATININE 0.8 mg/dL (0.6-1.3); ESTIMATED GFR (MDRD EQUATION) > 60; PHOSPHORUS 2.6 mg/dL (2.5-4.9); POTASSIUM 3.6 mMol/L (3.7-5.1); SODIUM 145 mMol/L (135-145); TOTAL PROTEIN 6.4 g/dL (6.0-8.4)
[2016-10-11 04:24] LABS: TOTAL BILIRUBIN 0.2 mg/dL (0.0-1.5)
[2016-10-12 05:29] LABS: BASOPHIL # 0.1 K/uL (0.0-0.2); BASOPHIL % 0.5 %; EOSINOPHIL # 0.4 K/uL (0.0-0.5); HEMATOCRIT 29.4 % (37.0-53.0); HEMOGLOBIN 9.4 g/dL (12.0-17.0); IMMATURE GRANULOCYTE # 0.1 K/uL (0.0-0.3); IMMATURE GRANULOCYTE % 0.4 %; LYMPHOCYTE # 1.3 K/uL (0.8-4.0); LYMPHOCYTE % 9.2 %; MCH 27.1 pg (27.0-34.0); MCV 84.7 fl (83.0-98.0); MONOCYTE # 1.3 K/uL (0.0-1.0); MPV 10.5 fl (9.4-12.4); NEUTROPHIL # (ANC) 11.3 K/uL (1.4-9.0); NEUTROPHIL % 77.9 %; NRBC % 0 /100WBC (0-0.00); PLATELET COUNT 330 K/uL (150-450); RBC 3.47 M/uL (4.00-6.00); RDW-CV 16.8 % (11.9-14.6); WBC 14.6 K/uL (4.0-11.0)
[2016-10-12 05:49] LABS: ANION GAP 11.5 (10.0-19.0); BLOOD UREA NITROGEN 12 mg/dL (6-24); CALCIUM 8.7 mg/dL (8.5-10.5); CHLORIDE 113 mMol/L (96-110); CO2 23 mMol/L (22-32); CREATININE 0.8 mg/dL (0.6-1.3); ESTIMATED GFR (MDRD EQUATION) > 60; POTASSIUM 3.5 mMol/L (3.7-5.1); SODIUM 144 mMol/L (135-145)
[2016-10-13 05:13] LABS: BASOPHIL # 0.1 K/uL (0.0-0.2); BASOPHIL % 0.8 %; EOSINOPHIL # 0.5 K/uL (0.0-0.5); EOSINOPHIL % 3.9 %; HEMATOCRIT 29.4 % (37.0-53.0); HEMOGLOBIN 9.3 g/dL (12.0-17.0); IMMATURE GRANULOCYTE # 0.1 K/uL (0.0-0.3); IMMATURE GRANULOCYTE % 0.4 %; LYMPHOCYTE # 1.6 K/uL (0.8-4.0); LYMPHOCYTE % 12.7 %; MCH 26.9 pg (27.0-34.0); MCHC 31.6 gm/dL (32.0-36.5); MONOCYTE # 1.6 K/uL (0.0-1.0); MPV 10.4 fl (9.4-12.4); NEUTROPHIL # (ANC) 8.7 K/uL (1.4-9.0); NEUTROPHIL % 69.2 %; NRBC % 0 /100WBC (0-0.00); PLATELET COUNT 354 K/uL (150-450); RBC 3.46 M/uL (4.00-6.00); RDW-CV 16.8 % (11.9-14.6); WBC 12.6 K/uL (4.0-11.0)
[2016-10-13 05:26] LABS: ANION GAP 13.7 (10.0-19.0); BLOOD UREA NITROGEN 14 mg/dL (6-24); CALCIUM 8.5 mg/dL (8.5-10.5); CHLORIDE 110 mMol/L (96-110); CO2 23 mMol/L (22-32); CREATININE 0.6 mg/dL (0.6-1.3); ESTIMATED GFR (MDRD EQUATION) > 60; POTASSIUM 3.7 mMol/L (3.7-5.1); SODIUM 143 mMol/L (135-145)
[2016-10-15 04:44] LABS: BASOPHIL # 0.1 K/uL (0.0-0.2); BASOPHIL % 0.6 %; EOSINOPHIL # 0.4 K/uL (0.0-0.5); EOSINOPHIL % 2.5 %; HEMATOCRIT 31.8 % (37.0-53.0); IMMATURE GRANULOCYTE # 0.1 K/uL (0.0-0.3); IMMATURE GRANULOCYTE % 0.5 %; LYMPHOCYTE # 1.9 K/uL (0.8-4.0); MCH 26.7 pg (27.0-34.0); MCHC 31.4 gm/dL (32.0-36.5); MCV 84.8 fl (83.0-98.0); MONOCYTE # 1.9 K/uL (0.0-1.0); MONOCYTE % 13.3 %; MPV 9.6 fl (9.4-12.4); NEUTROPHIL # (ANC) 10.2 K/uL (1.4-9.0); NEUTROPHIL % 70.1 %; NRBC % 0 /100WBC (0-0.00); PLATELET COUNT 456 K/uL (150-450); RBC 3.75 M/uL (4.00-6.00); RDW-CV 17.4 % (11.9-14.6); WBC 14.6 K/uL (4.0-11.0)
[2016-10-18 07:00] LABS: BASOPHIL # 0.1 K/uL (0.0-0.2); BASOPHIL % 0.7 %; EOSINOPHIL # 0.4 K/uL (0.0-0.5); EOSINOPHIL % 3.3 %; HEMATOCRIT 31.1 % (37.0-53.0); HEMOGLOBIN 9.7 g/dL (12.0-17.0); IMMATURE GRANULOCYTE % 0.4 %; LYMPHOCYTE # 1.8 K/uL (0.8-4.0); LYMPHOCYTE % 16.4 %; MCH 26.9 pg (27.0-34.0); MCHC 31.2 gm/dL (32.0-36.5); MCV 86.1 fl (83.0-98.0); MONOCYTE # 1.6 K/uL (0.0-1.0); MONOCYTE % 14.4 %; MPV 9.3 fl (9.4-12.4); NEUTROPHIL % 64.8 %; NRBC % 0 /100WBC (0-0.00); PLATELET COUNT 470 K/uL (150-450); RBC 3.61 M/uL (4.00-6.00); RDW-CV 17.6 % (11.9-14.6); WBC 10.8 K/uL (4.0-11.0)
[2016-10-24 04:56] LABS: ALBUMIN 2.8 gm/dL (3.5-5.0); BLOOD UREA NITROGEN 22 mg/dL (6-24); CHLORIDE 109 mMol/L (96-110); CO2 26 mMol/L (22-32); CREATININE 0.7 mg/dL (0.6-1.3); ESTIMATED GFR (MDRD EQUATION) > 60; MAGNESIUM 2.3 mg/dL (1.8-2.6); PHOSPHORUS 3.4 mg/dL (2.5-4.9); SODIUM 143 mMol/L (135-145)
[2016-10-24 05:20] LABS: BASOPHIL # 0.1 K/uL (0.0-0.2); BASOPHIL % 1.1 %; EOSINOPHIL # 0.3 K/uL (0.0-0.5); EOSINOPHIL % 2.9 %; HEMATOCRIT 30.3 % (37.0-53.0); HEMOGLOBIN 9.4 g/dL (12.0-17.0); IMMATURE GRANULOCYTE % 0.3 %; LYMPHOCYTE # 1.6 K/uL (0.8-4.0); LYMPHOCYTE % 18.4 %; MCV 87.1 fl (83.0-98.0); MONOCYTE # 1.3 K/uL (0.0-1.0); MONOCYTE % 14.1 %; MPV 10.4 fl (9.4-12.4); NEUTROPHIL # (ANC) 5.6 K/uL (1.4-9.0); NEUTROPHIL % 63.2 %; NRBC % 0 /100WBC (0-0.00); PLATELET COUNT 431 K/uL (150-450); RBC 3.48 M/uL (4.00-6.00); RDW-CV 17.6 % (11.9-14.6); WBC 8.9 K/uL (4.0-11.0)
[2016-10-30 06:24] LABS: ALBUMIN 2.9 gm/dL (3.5-5.0); ALK PHOS 112 IU/L (33-138); ALT 11 IU/L (12-78); ANION GAP 12.2 (10.0-19.0); AST 12 IU/L (10-40); BLOOD UREA NITROGEN 21 mg/dL (6-24); CALCIUM 8.7 mg/dL (8.5-10.5); CHLORIDE 107 mMol/L (96-110); CO2 26 mMol/L (22-32); CREATININE 0.7 mg/dL (0.6-1.3); ESTIMATED GFR (MDRD EQUATION) > 60; POTASSIUM 4.2 mMol/L (3.7-5.1); SODIUM 141 mMol/L (135-145); TOTAL BILIRUBIN 0.2 mg/dL (0.0-1.5); TOTAL PROTEIN 7.2 g/dL (6.0-8.4)
[2016-10-30 06:33] LABS: BASOPHIL # 0.1 K/uL (0.0-0.2); EOSINOPHIL # 0.3 K/uL (0.0-0.5); EOSINOPHIL % 3.2 %; HEMATOCRIT 31.8 % (37.0-53.0); HEMOGLOBIN 9.9 g/dL (12.0-17.0); IMMATURE GRANULOCYTE % 0.3 %; LYMPHOCYTE # 1.7 K/uL (0.8-4.0); LYMPHOCYTE % 16.7 %; MCH 27.6 pg (27.0-34.0); MCHC 31.1 gm/dL (32.0-36.5); MCV 88.6 fl (83.0-98.0); MONOCYTE # 1.5 K/uL (0.0-1.0); MONOCYTE % 15.2 %; MPV 10.5 fl (9.4-12.4); NEUTROPHIL # (ANC) 6.3 K/uL (1.4-9.0); NEUTROPHIL % 63.6 %; NRBC % 0 /100WBC (0-0.00); PLATELET COUNT 367 K/uL (150-450); RBC 3.59 M/uL (4.00-6.00); RDW-CV 18.1 % (11.9-14.6); WBC 9.9 K/uL (4.0-11.0)
[2016-11-04 07:33] LABS: ANION GAP 13.2 (10.0-19.0); BLOOD UREA NITROGEN 22 mg/dL (6-24); CALCIUM 8.9 mg/dL (8.5-10.5); CHLORIDE 108 mMol/L (96-110); CO2 26 mMol/L (22-32); CREATININE 0.7 mg/dL (0.6-1.3); ESTIMATED GFR (MDRD EQUATION) > 60; POTASSIUM 4.2 mMol/L (3.7-5.1); SODIUM 143 mMol/L (135-145)
[2016-11-04 07:42] LABS: BASOPHIL # 0.1 K/uL (0.0-0.2); BASOPHIL % 0.9 %; EOSINOPHIL # 0.4 K/uL (0.0-0.5); EOSINOPHIL % 4.2 %; IMMATURE GRANULOCYTE % 0.2 %; LYMPHOCYTE # 1.5 K/uL (0.8-4.0); LYMPHOCYTE % 16.6 %; MCH 27.5 pg (27.0-34.0); MCHC 31.3 gm/dL (32.0-36.5); MCV 87.9 fl (83.0-98.0); MONOCYTE # 1.3 K/uL (0.0-1.0); MONOCYTE % 14.9 %; MPV 10.9 fl (9.4-12.4); NEUTROPHIL # (ANC) 5.7 K/uL (1.4-9.0); NEUTROPHIL % 63.2 %; NRBC % 0 /100WBC (0-0.00); RBC 3.64 M/uL (4.00-6.00); RDW-CV 18.1 % (11.9-14.6)
[2016-11-04 07:43] LABS: PLATELET COUNT 260 K/uL (150-450)
[2016-11-06 06:18] LABS: ALK PHOS 113 IU/L (33-138); ALT 12 IU/L (12-78); ANION GAP 11.1 (10.0-19.0); AST 17 IU/L (10-40); BLOOD UREA NITROGEN 25 mg/dL (6-24); CALCIUM 8.7 mg/dL (8.5-10.5); CHLORIDE 106 mMol/L (96-110); CO2 28 mMol/L (22-32); CREATININE 0.9 mg/dL (0.6-1.3); ESTIMATED GFR (MDRD EQUATION) > 60; POTASSIUM 4.1 mMol/L (3.7-5.1); SODIUM 141 mMol/L (135-145); TOTAL PROTEIN 7.3 g/dL (6.0-8.4)
[2016-11-06 06:19] LABS: TOTAL BILIRUBIN 0.1 mg/dL (0.0-1.5)
[2016-11-06 06:22] LABS: BASOPHIL # 0.1 K/uL (0.0-0.2); BASOPHIL % 0.9 %; EOSINOPHIL # 0.5 K/uL (0.0-0.5); EOSINOPHIL % 5.6 %; HEMATOCRIT 32.4 % (37.0-53.0); IMMATURE GRANULOCYTE % 0.2 %; LYMPHOCYTE # 1.5 K/uL (0.8-4.0); LYMPHOCYTE % 15.8 %; MCH 27.2 pg (27.0-34.0); MCHC 30.9 gm/dL (32.0-36.5); MCV 88.3 fl (83.0-98.0); MONOCYTE # 1.4 K/uL (0.0-1.0); MONOCYTE % 14.8 %; MPV 10.9 fl (9.4-12.4); NEUTROPHIL # (ANC) 5.9 K/uL (1.4-9.0); NEUTROPHIL % 62.7 %; NRBC % 0 /100WBC (0-0.00); PLATELET COUNT 255 K/uL (150-450); RBC 3.67 M/uL (4.00-6.00); RDW-CV 17.9 % (11.9-14.6); WBC 9.5 K/uL (4.0-11.0)
[2016-11-12 05:53] LABS: ANION GAP 12.1 (10.0-19.0); BLOOD UREA NITROGEN 19 mg/dL (6-24); CALCIUM 9.4 mg/dL (8.5-10.5); CHLORIDE 104 mMol/L (96-110); CO2 28 mMol/L (22-32); CREATININE 0.7 mg/dL (0.6-1.3); ESTIMATED GFR (MDRD EQUATION) > 60; POTASSIUM 4.1 mMol/L (3.7-5.1); SODIUM 140 mMol/L (135-145)
[2016-11-12 05:58] LABS: BASOPHIL # 0.1 K/uL (0.0-0.2); BASOPHIL % 0.7 %; EOSINOPHIL # 0.3 K/uL (0.0-0.5); HEMATOCRIT 31.9 % (37.0-53.0); HEMOGLOBIN 10.2 g/dL (12.0-17.0); IMMATURE GRANULOCYTE % 0.2 %; LYMPHOCYTE # 1.3 K/uL (0.8-4.0); LYMPHOCYTE % 14.8 %; MCH 27.7 pg (27.0-34.0); MCV 86.7 fl (83.0-98.0); MONOCYTE # 1.5 K/uL (0.0-1.0); MONOCYTE % 17.8 %; MPV 10.3 fl (9.4-12.4); NEUTROPHIL # (ANC) 5.4 K/uL (1.4-9.0); NEUTROPHIL % 62.5 %; NRBC % 0 /100WBC (0-0.00); PLATELET COUNT 284 K/uL (150-450); RBC 3.68 M/uL (4.00-6.00); RDW-CV 16.8 % (11.9-14.6); WBC 8.6 K/uL (4.0-11.0)
[2016-11-13 05:55] LABS: ALBUMIN 2.8 gm/dL (3.5-5.0); ALK PHOS 89 IU/L (33-138); ALT 15 IU/L (12-78); ANION GAP 10.1 (10.0-19.0); AST 20 IU/L (10-40); BLOOD UREA NITROGEN 18 mg/dL (6-24); CALCIUM 9.3 mg/dL (8.5-10.5); CHLORIDE 103 mMol/L (96-110); CO2 28 mMol/L (22-32); CREATININE 0.8 mg/dL (0.6-1.3); ESTIMATED GFR (MDRD EQUATION) > 60; POTASSIUM 4.1 mMol/L (3.7-5.1); SODIUM 137 mMol/L (135-145); TOTAL PROTEIN 7.9 g/dL (6.0-8.4)
[2016-11-13 05:59] LABS: TOTAL BILIRUBIN 0.2 mg/dL (0.0-1.5)
[2016-11-13 06:23] LABS: BASOPHIL # 0.1 K/uL (0.0-0.2); BASOPHIL % 0.6 %; EOSINOPHIL # 0.3 K/uL (0.0-0.5); EOSINOPHIL % 2.3 %; HEMATOCRIT 31.5 % (37.0-53.0); IMMATURE GRANULOCYTE % 0.3 %; LYMPHOCYTE # 1.3 K/uL (0.8-4.0); LYMPHOCYTE % 11.2 %; MCHC 31.7 gm/dL (32.0-36.5); MCV 84.9 fl (83.0-98.0); MONOCYTE # 1.9 K/uL (0.0-1.0); MONOCYTE % 16.4 %; MPV 10.5 fl (9.4-12.4); NEUTROPHIL # (ANC) 7.9 K/uL (1.4-9.0); NEUTROPHIL % 69.2 %; NRBC % 0 /100WBC (0-0.00); PLATELET COUNT 321 K/uL (150-450); RBC 3.71 M/uL (4.00-6.00); RDW-CV 16.8 % (11.9-14.6); WBC 11.5 K/uL (4.0-11.0)
[2016-11-14 05:37] LABS: BASOPHIL # 0.1 K/uL (0.0-0.2); BASOPHIL % 0.5 %; EOSINOPHIL # 0.2 K/uL (0.0-0.5); EOSINOPHIL % 1.8 %; HEMOGLOBIN 10.1 g/dL (12.0-17.0); IMMATURE GRANULOCYTE % 0.3 %; LYMPHOCYTE # 1.3 K/uL (0.8-4.0); LYMPHOCYTE % 11.9 %; MCH 27.1 pg (27.0-34.0); MCHC 31.6 gm/dL (32.0-36.5); MCV 85.8 fl (83.0-98.0); MONOCYTE # 1.9 K/uL (0.0-1.0); MONOCYTE % 17.5 %; MPV 10.3 fl (9.4-12.4); NEUTROPHIL # (ANC) 7.3 K/uL (1.4-9.0); NRBC % 0 /100WBC (0-0.00); PLATELET COUNT 326 K/uL (150-450); RBC 3.73 M/uL (4.00-6.00); RDW-CV 16.6 % (11.9-14.6); WBC 10.7 K/uL (4.0-11.0)
[2016-11-19 05:28] LABS: BLOOD UREA NITROGEN 19 mg/dL (6-24); CALCIUM 9.9 mg/dL (8.5-10.5); CHLORIDE 104 mMol/L (96-110); CO2 29 mMol/L (22-32); CREATININE 0.9 mg/dL (0.6-1.3); ESTIMATED GFR (MDRD EQUATION) > 60; SODIUM 139 mMol/L (135-145)
[2016-11-19 05:32] LABS: BASOPHIL # 0.1 K/uL (0.0-0.2); BASOPHIL % 0.9 %; EOSINOPHIL # 0.3 K/uL (0.0-0.5); EOSINOPHIL % 4.6 %; HEMATOCRIT 32.9 % (37.0-53.0); HEMOGLOBIN 10.4 g/dL (12.0-17.0); IMMATURE GRANULOCYTE % 0.3 %; LYMPHOCYTE # 1.5 K/uL (0.8-4.0); LYMPHOCYTE % 19.9 %; MCH 27.1 pg (27.0-34.0); MCHC 31.6 gm/dL (32.0-36.5); MCV 85.7 fl (83.0-98.0); MONOCYTE % 13.3 %; MPV 9.6 fl (9.4-12.4); NEUTROPHIL # (ANC) 4.6 K/uL (1.4-9.0); NRBC % 0 /100WBC (0-0.00); RBC 3.84 M/uL (4.00-6.00); WBC 7.5 K/uL (4.0-11.0)
[2016-11-19 05:38] LABS: PLATELET COUNT 436 K/uL (150-450)
[2017-01-26] MEDS ORDERED: LIPITOR40 MG PO (12:52)
[2017-01-26] MEDS ORDERED: ZYLOPRIM100 MG PO (12:52)
[2017-01-26] MEDS ORDERED: CYMBALTA30 MG PO (12:54)
[2017-01-26] MEDS ORDERED: PLAVIX75 MG PO (12:55)
[2017-01-26] MEDS ORDERED: CEFADROXIL500 MG PO (12:56)
[2017-01-26] MEDS ORDERED: COLACE100 MG PO (12:57)
[2017-01-26] MEDS ORDERED: FEOSOL325 MG PO (12:57)
[2017-01-26] MEDS ORDERED: NEURONTIN300 MG PO (12:58)
[2017-01-26] MEDS ORDERED: FLORASTOR250 MG PO (12:58)
[2017-01-26] MEDS ORDERED: ZANTAC (NON-FO150 MG PO (13:00)
[2017-01-26] MEDS ORDERED: MS CONTIN15 MG PO (13:00)
[2017-01-26] MEDS ORDERED: BENADRYL25 MG PO (13:01)
[2017-01-26] MEDS ORDERED: DULCOLAX10 MG R (13:02)
[2017-01-26] MEDS ORDERED: NITROSTAT 0.40.4 MG SL (13:03)
[2017-01-26] MEDS ORDERED: MILK OF MA400 MG/5 M PO (13:03)
[2017-01-26] MEDS ORDERED: PERCOCET 5-3251 EACH PO (13:04)
== END 2016-11-20 13:20 | DRG 252 ==
LOC: GPCU 09-15 10:31 → GMSU 09-15 10:31 → GICU 09-15 10:31 → GPCU 09-15 17:38 → GMSU 09-21 18:54 → GICU 10-09 00:21 → GPCU 10-12 17:14 → GMSU 10-24 15:59
PROVIDERS: Family Medicine; Hospitalist; Internal Medicine; Internal Medicine Geriatric Medicine; Nurse Practitioner Family; ADMIT Surgery Vascular Surgery
DX: I70.203 Unspecified atherosclerosis of native arteries of extremities, bilateral legs (principal); A41.2 Sepsis due to unspecified staphylococcus; R65.21 Severe sepsis with septic shock; J96.11 Chronic respiratory failure with hypoxia; E44.0 Moderate protein-calorie malnutrition; M86.9 Osteomyelitis, unspecified; L02.214 Cutaneous abscess of groin; D50.9 Iron deficiency anemia, unspecified; I10 Essential (primary) hypertension; E78.5 Hyperlipidemia, unspecified; G62.9 Polyneuropathy, unspecified; J44.9 Chronic obstructive pulmonary disease, unspecified; M10.9 Gout, unspecified; S91.302A Unspecified open wound, left foot, initial encounter; B95.61 Methicillin susceptible Staphylococcus aureus infection as the cause of diseases classified elsewhere; G89.4 Chronic pain syndrome; M19.90 Unspecified osteoarthritis, unspecified site; F10.21 Alcohol dependence, in remission; B37.2 Candidiasis of skin and nail; F17.210 Nicotine dependence, cigarettes, uncomplicated; Z89.511 Acquired absence of right leg below knee; Z89.412 Acquired absence of left great toe; Z68.23 Body mass index [BMI] 23.0-23.9, adult
CPT/HCPCS: A9577; C1751; C1757; J0690; J1100; J1170; J1644; J1650; J2250; J2270; J2405; J2543; J2720; J3010; J3370; J3475; J3480; J7030; J7050; J7060; J7120; P9016; P9045; Q9967

== ENCOUNTER → 2016-11-20 | Outpatient (CLI) | payer MEDICAID ==
[~2016-11-20] MED LIST changes: +BENADRYL25 MG PO; +CEFADROXIL500 MG PO; +COLACE100 MG PO; +CYMBALTA30 MG PO; +DULCOLAX10 MG R; +FEOSOL325 MG PO; +FLORASTOR250 MG PO; +LIPITOR40 MG PO; +MILK OF MA400 MG/5 M PO; +MS CONTIN15 MG PO; +NEURONTIN300 MG PO; +NITROSTAT 0.40.4 MG SL; +NORCO 5-325 TA1 EACH PO; +PERCOCET 5-3251 EACH PO; +PLAVIX75 MG PO; +ZANTAC (NON-FO150 MG PO; +ZYLOPRIM100 MG PO
== END | disposition disaster alternative care site (69) ==
LOC: GAMB 13:18
DX: T87.89 Other complications of amputation stump (principal); I73.9 Peripheral vascular disease, unspecified; I10 Essential (primary) hypertension; L89.309 Pressure ulcer of unspecified buttock, unspecified stage; F10.20 Alcohol dependence, uncomplicated; F17.298 Nicotine dependence, other tobacco product, with other nicotine-induced disorders; Z96.651 Presence of right artificial knee joint; Z79.891 Long term (current) use of opiate analgesic; Z79.899 Other long term (current) drug therapy
CPT/HCPCS: A0425; A0428

== ENCOUNTER 2017-01-30 06:56 | Outpatient (CLI) | payer MEDICAID ==
[~2017-01-30] VITALS: Ht 177.8 cm; Wt 68.0 kg
--- NOTE | ~2017-01-30 | OR ---
PATIENT'S NAME: SAMIRA DAWN [facility] AGE: 56 Y [address] ROOM: [address] [place] [address] LOCATION: GPCU ADMIT DATE: 01/30/2017 OR/Procedure Report DISCHARGE DATE: 01/30/2017 FAMILY PHYSICIAN: Luisito Hector DO ATTENDING PHYSICIAN: Kraig Navas SURGEON: Kraig Navas MD ICU REGISTERED NURSE: DATE OF PROCEDURE: 01/30/2017 PREOPERATIVE DIAGNOSIS: Critical limb ischemia of the left lower extremity. POSTOPERATIVE DIAGNOSIS: Critical limb ischemia of the left lower extremity. PROCEDURES: 1. Aortogram with left lower extremity runoff. 2. Angioplasty of the TP trunk as well as angioplasty of the anterior tibial artery at its . ANALOG DESIGN ENGINEER: CARROLL Barajas ANESTHESIA: MAC local. ESTIMATED BLOOD LOSS: 50 mL. OPERATIVE FINDINGS: Near occlusion of the TP trunk as well as the anterior tibial orifice, both recanalized with 3-mm balloons. DESCRIPTION OF PROCEDURE: The patient was brought to laborer operator, placed supine on the laborer operator table, prepped and draped in a sterile manner. Preoperative time-out was performed. The patient received preoperative antibiotics. We used ultrasound guidance to gain access to the left common femoral artery. We used a micropuncture needle followed by a micropuncture wire, followed by a micropuncture sheath, exchanged using Seldinger technique for a 5-English short sheath. We went up in the aorta using 0.035 Glidewire as well as Omni Flush catheter and performed an aortogram which showed patent renal, common external, and internal iliac arteries. We then went up and over the aortic bifurcation; parked our catheter in the common femoral on the left; and performed a series of angiograms of the left lower extremity, showed that the profunda and proximal superficial femoral artery was patent. We then passed a wire down to the popliteal and selected out the popliteal with our catheter and found that the TP trunk as well as the anterior tibia was occluded proximally or near occluded. We exchanged using Seldinger technique using a Magic Torque wire for a 6-English Destination sheath. We then gave 5000 units of heparin and waited 3 minutes. We then selected out the TP trunk using a 0.014 Gladius wire. We then balloon angioplastied with a 2 x 60, then a 3 x 60 PATIENT'S NAME: SAMIRA DAWN [facility] AGE: 56 Y [address] ROOM: [address] [place] [address] LOCATION: [facility] ADMIT DATE: 01/30/2017 OR/Procedure Report DISCHARGE DATE: 01/30/2017 FAMILY PHYSICIAN: Luisito Hector DO ATTENDING PHYSICIAN: Kraig Navas. We then selected the TP trunk distally with our catheter, performed a completion angiogram of this, showed there was patent posterior tibial and peroneal arteries distally. We then brought our catheter back and then selected out the anterior tibia. We then passed a 0.014 wire across this lesion and then proceeded to balloon angioplasty the anterior tibial with this same 2 x 60 and 3 x 60 balloon. There was good relief of the ostial stenosis. We then selected the anterior tibial, performed a completion angiogram of this, which showed that the distal vessel was patent and all 3 tibial vessels were now patent. The patient had a significant amount of scar tissue in the groin, so we were unable to use Angio-Seal. We brought the wires and devices back and then we brought our sheath and held pressure for 15 minutes. Protamine was used to reverse heparin. The patient tolerated the procedure well, transferred to recovery room, and then home later that day. MD JIGNA TAMAYOM/modl /[id number] d: 01/30/171840 t: 02/03/17 1120, OPERATIVE SUMMARY
[~2017-01-30 06:56] MED LIST changes: -NORCO 5-325 TA1 EACH PO
[2017-01-30 08:11] LABS: BASOPHIL # 0.1 K/uL (0.0-0.2); BASOPHIL % 0.9 %; EOSINOPHIL # 0.3 K/uL (0.0-0.5); EOSINOPHIL % 2.5 %; HEMOGLOBIN 12.2 g/dL (12.0-17.0); IMMATURE GRANULOCYTE % 0.2 %; LYMPHOCYTE # 1.7 K/uL (0.8-4.0); LYMPHOCYTE % 17.4 %; MCH 28.3 pg (27.0-34.0); MCHC 32.1 gm/dL (32.0-36.5); MCV 88.2 fl (83.0-98.0); MONOCYTE # 1.4 K/uL (0.0-1.0); MONOCYTE % 14.2 %; MPV 10.3 fl (9.4-12.4); NEUTROPHIL # (ANC) 6.4 K/uL (1.4-9.0); NEUTROPHIL % 64.8 %; NRBC % 0 /100WBC (0-0.00); PLATELET COUNT 304 K/uL (150-450); RBC 4.31 M/uL (4.00-6.00); RDW-CV 15.4 % (11.9-14.6); WBC 9.9 K/uL (4.0-11.0)
[2017-01-30 08:33] LABS: ALBUMIN 3.2 gm/dL (3.5-5.0); ALK PHOS 152 IU/L (33-138); ALT 21 IU/L (12-78); ANION GAP 10.3 (10.0-19.0); AST 30 IU/L (10-40); BLOOD UREA NITROGEN 11 mg/dL (6-24); CALCIUM 9.1 mg/dL (8.5-10.5); CHLORIDE 108 mMol/L (96-110); CO2 28 mMol/L (22-32); CREATININE 0.7 mg/dL (0.6-1.3); SODIUM 142 mMol/L (135-145); TOTAL BILIRUBIN 0.3 mg/dL (0.0-1.5); TOTAL PROTEIN 7.6 g/dL (6.0-8.4)
[2017-01-30 08:34] LABS: POTASSIUM 4.3 mMol/L (3.7-5.1)
[2017-01-30] MEDS ORDERED: NORCO 5-325 TA1 EACH PO (11:24)
== END 2017-01-30 15:50 | disposition disaster alternative care site (69) ==
LOC: GPCU 06:56 → GPOC 06:56
PROVIDERS: Surgery Vascular Surgery
PROC: B41DYZZ Fluoroscopy of Aorta and Bilateral Lower Extremity Arteries using Other Contrast (ICD-10-PCS; principal; 2017-01-30)
DX: I99.8 Other disorder of circulatory system (principal)
CPT/HCPCS: C1725; C1769; C1887; J0690; J1644; J2001; J2250; J2720; J3010; J7030